=== PATIENT | female | born 1955 ===

== ENCOUNTER 2016-10-16 19:04 | Emergency (ER) | payer MEDICAID ==
[2016-10-16 19:04] VITALS: BMI 24.0
[2016-10-16 19:20] VITALS: BP 108/60; PULSE 74; RESP 18; TEMP 97.9; O2SAT 97
--- NOTE | 2016-10-16 19:53 | ED PDOC ---
Arrival/HPI <Candelario Waldrop - Last Filed: 10/16/16 22:03> - General Historian: Patient <Preston Sanders - Last Filed: 10/16/16 22:53> - General Chief Complaint: Headache Time Seen by Provider: 10/16/16 19:43 - History of Present Illness Narrative History of Present Illness (Text): 10/16/16 19:44 61 y/o female, pmh including htn/hyperlipidemia/dm/hypothyroidism/cva, nkda, c/ o lt frontal headache x 2 days with no fall or trauma. Frontal sinus pressure, no dizziness, no change in vision, feels pressure on the lt. eye with no change in vision, aggravated by bending forward, no dizziness, no slurred speech, no night sweat, no palpitation, no abdominal pain, no urinary symptoms, no other medical or psychological complaints. (Preston Sanders) Past Medical History - Provider Review Nursing Documentation Reviewed: Yes - Infectious Disease Hx of Infectious Diseases: None - Tetanus Immunization Tetanus Immunization: Unknown - Cardiac Hx Cardiac Disorders: Yes Hx Hypertension: Yes - Pulmonary Hx Respiratory Disorders: Yes Hx Asthma: Yes Hx Emphysema: Yes - Neurological Hx Neurological Disorder: No - HEENT Hx HEENT Disorder: No - Renal Hx Renal Disorder: No - Endocrine/Metabolic Hx Endocrine Disorders: Yes Hx Diabetes Mellitus Type 2: Yes Hx Hypothyroidism: Yes - Hematological/Oncological Hx Blood Disorders: No - Integumentary Hx Dermatological Disorder: No - Musculoskeletal/Rheumatological Hx Musculoskeletal Disorders: Yes Hx Arthritis: Yes Hx Osteoporosis: Yes - Gastrointestinal Hx Gastrointestinal Disorders: No - Genitourinary/Gynecological Hx Genitourinary Disorders: No - Psychiatric Hx Psychophysiologic Disorder: Yes Hx Anxiety: Yes Hx Bipolar Disorder: No Hx Depression: Yes Hx Emotional Abuse: No Hx Hallucinations: No Hx Panic Disorder: No Hx Post Traumatic Stress Disorder: No Hx Psychosis: No Hx Physical Abuse: No Hx Schizophrenia: No Hx Sexual Abuse: No Hx Substance Use: No - Surgical History Hx Orthopedic Surgery: Yes (BACK 10yrs ago) Other/Comment: breast bx - Anesthesia Hx Anesthesia: Yes Hx Anesthesia Reactions: No Hx Malignant Hyperthermia: No - Suicidal Assessment Feels Threatened In Home Enviroment: No <Preston Sanders - Last Filed: 10/16/16 22:53> Family/Social History - Physician Review Nursing Documentation Reviewed: Yes Family/Social History: Unknown Family HX Smoking Status: Never Smoked Hx Alcohol Use: No Hx Substance Use: No Hx Substance Use Treatment: No <Preston Sanders - Last Filed: 10/16/16 22:53> Allergies/Home Meds <Candelario Waldrop - Last Filed: 10/16/16 22:03> <Preston Sanders - Last Filed: 10/16/16 22:53> Allergies/Adverse Reactions: Allergies No Known Allergies Allergy (Verified 09/15/16 07:23) Home Medications: Home Meds Medication Instructions Recorded Confirmed Levothyroxine Sodium 0.075 mg PO DAILY 03/12/12 09/15/16 Lisinopril [Zestril] 10 mg PO DAILY 04/17/16 09/15/16 MetFORMIN [glucoPHAGE] 500 mg PO BID 04/17/16 09/15/16 Simvastatin [Zocor] 20 mg PO DAILY 04/17/16 09/15/16 Review of Systems - Review of Systems Constitutional: absent: Fatigue, Fevers Eyes: absent: Vision Changes ENT: absent: Hearing Changes, Tinnitus, TMJ Pain, Voice Changes, Sore Throat, Rhinorrhea, Epistaxis Respiratory: absent: SOB, Cough, Sputum, Wheezing Cardiovascular: absent: Chest Pain, Palpitations, Orthopnea Gastrointestinal: absent: Abdominal Pain, Nausea, Vomiting Skin: absent: Rash, Pruritis, Skin Lesions, Laceration, Abscess, Ulcer, Cellulitis Neurological: Headache. absent: Dizziness, Focal Weakness, Gait Changes, Speech Changes, Facial Droop, Disequilibrium, Seizure Psychiatric: absent: Anxiety, Depression, Suicidal Ideation <Preston Sanders - Last Filed: 10/16/16 22:53> Physical Exam Vital Signs Reviewed: Yes Temperature: Afebrile Blood Pressure: Normal Pulse: Regular Respiratory Rate: Normal Appearance: Positive for: Well-Appearing, Non-Toxic, Uncomfortable Pain Distress: Moderate Mental Status: Positive for: Alert and Oriented X 3 - Systems Exam Head: Present: Atraumatic, Normocephalic, Other (no sinus tenderness) Pupils: Present: PERRL Extroacular Muscles: Present: EOMI Conjunctiva: Present: Normal, Other (Eyes: lt. periorbital mild swelling with redness, lt. intraocular pressure 13 vs. rt. intraocular pressure 14, bilateral vision without correction 20/100, lt. vision without correctoin 20/100 vs. rt. vision without correction 20/100, FREOM without limitation, no hyhema, full range of extraocular movement on the bilateral eyes without limitation. ) Ears: Present: NORMAL TM, Normal Canal. No: Erythema Mouth: Present: Moist Mucous Membranes Pharnyx: No: ERYTHEMA, EXUDATE, TONSILS ENLARGED, Peritonsilar Swelling Nose (External): Present: Atraumatic. No: Abrasion, Contusion, Laceration Nose (Internal): Present: Normal Inspection, No Active Bleeding. No: Rhinorrhea , Septal Hematoma, Epistaxis Neck: Present: Normal Range of Motion, Trachea Midline. No: Meningeal Signs, MIDLINE TENDERNESS, Paraspinal Tenderness, Lymphadenopathy Respiratory/Chest: Present: Clear to Auscultation, Good Air Exchange. No: Respiratory Distress, Accessory Muscle Use, Wheezes, Decreased Breath Sounds, Rales, Retracting, Rhonchi, Tachypneic Cardiovascular: Present: Regular Rate and Rhythm, Normal S1, S2. No: Murmurs Abdomen: Present: Normal Bowel Sounds. No: Tenderness, Distention, Peritoneal Signs, Rebound, Guarding Back: Present: Normal Inspection. No: CVA Tenderness, Midline Tenderness, Paraspinal Tenderness, Pain with Leg Raise, Decubitus Ulcer Upper Extremity: Present: Normal Inspection. No: Cyanosis, Edema Lower Extremity: Present: Normal Inspection. No: Edema Neurological: Present: GCS=15, CN II-XII Intact, Speech Normal, Motor Func Grossly Intact, Gait Normal, Memory Normal, Other (normal finger to nose, normal heel to lauern test. ) Skin: Present: Warm, Dry, Normal Color. No: Rashes Lymphatic: No: Cervical Adenopathy Psychiatric: Present: Alert, Oriented x 3, Normal Insight, Normal Concentration <Preston Sanders - Last Filed: 10/16/16 22:53> Vital Signs Temp Pulse Resp BP Pulse Ox 10/16/16 19:14 97.9 F 74 18 108/60 97 Medical Decision Making <Candelario Waldrop - Last Filed: 10/16/16 22:03> - Lab Interpretations I have reviewed the lab results: Yes Interpretation: No clinic. lab abnormalty - RAD Interpretation Quality Improvement Manager: Radiologist <Preston Sanders - Last Filed: 10/16/16 22:53> ED Course and Treatment: 10/16/16 19:59 -Labs -CT head/orbit -IV reglan and benadryl -Tonometer -Observe and reassess 10/16/16 22:48 -CT head and orbital show no acute findings. -Labs are non-significant -Pain decreased significantly, toradol ordered as the patient request more pain meds. -PT. has her own opthalmologist DR. Verduzco which she will see her own opthalmologist within 2 days. -Discharge home with augmentin, zyrtec, motrin, stay hydrated, avoid rubbing or touching the face, follow up with your own pmd and your own opthalmologist within 2 days, return to the ER for any new or worsening signs or symptoms. (Preston Sanders) - Lab Interpretations Lab Results: 10/16/16 20:04 10/16/16 20:04 Lab Results 10/16/16 20:04: WBC 7.3, RBC 4.02, Hgb 12.0, Hct 36.0, MCV 89.6, MCH 29.9, MCHC 33.3, RDW 13.3, Plt Count 218, MPV 10.3, Gran % 51.1, Lymph % (Auto) 30.8, Garland % (Auto) 5.1, Eos % (Auto) 12.7 H, Baso % (Auto) 0.3, Gran # 3.72, Lymph # 2.2, Garland # 0.4, Eos # 0.9 H, Baso # 0.02, Sodium 141, Potassium 4.2, Chloride 103, Carbon Dioxide 27, Anion Gap 15, BUN 27 H, Creatinine 0.9, Est GFR ( Amer ) > 60, Est GFR (Non-Af Amer) > 60, Random Glucose 164 H, Calcium 9.8, Total Bilirubin 0.5, AST 24, ALT 16, Alkaline Phosphatase 107, Total Protein 7.3, Albumin 4.2, Globulin 3.1, Albumin/Globulin Ratio 1.4 - RAD Interpretation Radiology Orders: 10/16/16 19:53 HEAD W/O CONTRAST [CT] Stat ORBITS/ FACIALS W/O CONTRAST [CT] Stat CT HEAD: FINDINGS: Brain: Ventricles are normal in size and configuration. There is no midline shift. There is mild prominence of sulci and gyri, unchanged. There are no intra-axial or extra- axial mass lesions or areas of hemorrhage. There are no abnormal fluid collections. Fournier-white differentiation is maintained. Ventricles: See above. Bones: Cranial vault is intact. Soft tissues: unremarkable Sinuses: There is no acute sinusitis. Ears and mastoids: Middle ears and mastoids are unremarkable Orbits: Orbital contents are unremarkable. IMPRESSION: No acute intracranial abnormality Thank you for allowing us to participate in the care of your patient. Dictated and Authenticated by: Ekta Johansen MD 10/16/2016 9:51 PM Eastern Time ( & Cr) CT Orbital/facial: FINDINGS: Bones/joints: There are no facial bone fractures. Soft tissues: There are no facial masses. Orbits: Orbital contents are unremarkable. Sinuses: There is no acute sinusitis. Middle ears and mastoids Middle ears and mastoids are incompletely imaged. Dental: Streak artifact from dental fillings degrades image quality. Brain: No focal abnormalities are seen in visualized portion of the brain. IMPRESSION: No sinusitis Thank you for allowing us to participate in the care of your patient. Dictated and Authenticated by: Ekta Johansen MD 10/16/2016 10:11 PM Eastern Time ( & Cr) (Preston Sanders) - Medication Orders Current Medication Orders: Sodium Chloride (Sodium Chloride 0.9%) 1,000 mls @ 200 mls/hr IV .Q5H BALDEMAR Last Admin: 10/16/16 20:08 Dose: 200 MLS/HR eMAR Start Stop Document 10/16/16 20:08 SE (Rec: 10/16/16 20:08 SE [id number]) Intravenous Solution Start Date 10/16/16 Start Time 20:08 Discontinued Medications Diphenhydramine HCl (Benadryl) 25 mg IVP STAT STA Stop: 10/16/16 19:57 Last Admin: 10/16/16 20:07 Dose: 25 MG IVP Administration Document 10/16/16 20:07 SE (Rec: 10/16/16 20:08 [id number]) Charges for Administration # of IVP Administrations 1 Metoclopramide HCl (Reglan) 10 mg IVP STAT STA Stop: 10/16/16 19:57 Last Admin: 10/16/16 20:08 Dose: 10 MG IVP Administration Document 10/16/16 20:08 SE (Rec: 10/16/16 20:08 SE [id number]) Charges for Administration # of IVP Administrations 1 - PA / REFRIGERATION ENGINEER / Resident Statement SHAHIDA has reviewed & agrees with the documentation as recorded. <Candelario Waldrop - Last Filed: 10/16/16 22:03> - PA / REFRIGERATION ENGINEER / Resident Statement SHAHIDA has reviewed & agrees with the documentation as recorded. <Preston Sanders - Last Filed: 10/16/16 22:53> Disposition/Present on Arrival <Candelario Waldrop - Last Filed: 10/16/16 22:03> - Present on Arrival Any Indicators Present on Arrival: No History of DVT/PE: No History of Uncontrolled Diabetes: No Urinary Catheter: No History of Decub. Ulcer: No History Surgical Site Infection Following: None - Disposition Have Diagnosis and Disposition been Completed?: Yes Disposition Time: 22:36 Patient Plan: Discharge <Preston Sanders - Last Filed: 10/16/16 22:53> - Disposition Diagnosis: Dehydration, Sinusitis, Periorbital cellulitis of left eye Disposition: HOME/ ROUTINE Patient Problems: Current Active Problems Problem Status Diagnosed Dehydration Acute Sinusitis Acute Condition: IMPROVED Discharge Instructions (ExitCare): Cellulitis (ED) Additional Instructions: Discharge home with augmentin, zyrtec, motrin, stay hydrated, avoid rubbing or touching the face, follow up with your own pmd and your own opthalmologist within 2 days, return to the ER for any new or worsening signs or symptoms. Prescriptions: Amoxicillin/Clavulanate [Augmentin 875 MG-125 MG] 1 tab PO BID #20 tab Ibuprofen [Motrin Tab] 400 mg PO QID PRN #25 tab PRN Reason: other Cetirizine HCl [Zyrtec Allergy] 10 mg PO DAILY #10 sgl Referrals: Taye Mckinney MD [Primary Care Provider] - Follow up with primary Han Verduzco MD [Staff Provider] - Follow up with primary Forms: WORK NOTE
[2016-10-16] MEDS ORDERED: DiphenhydrAMINE 50 mg/ml Inj IVP STA (19:56)
[2016-10-16] MEDS ORDERED: Sodium Chloride 0.9% 1,000 ML IV SCH (20:00)
[2016-10-16 20:16] LABS: ADD MANUAL DIFF? NO
[2016-10-16 20:35] LABS: BASO # 0.02 K/mm3 (0.0-2.0); BASO % 0.3 % (0.0-3.0); EOS # 0.9 (0.0-0.7); EOS % 12.7 % (1.5-5.0); GRAN # 3.72 (1.4-6.5); GRAN % 51.1 % (50.0-68.0); LYMPH # 2.2 (1.2-3.4); LYMPH % 30.8 % (22.0-35.0); MEAN CELL VOLUME 89.6 fL (80.0-105.0); MEAN CORPUSCULAR HEMOGLOBIN 29.9 pg (25.0-35.0); MEAN CORPUSCULAR HGB CONC 33.3 g/dl (31.0-37.0); MEAN PLATELET VOLUME 10.3 fl (7.0-11.0); MONO # 0.4 (0.1-0.6); MONO % 5.1 % (1.0-6.0); PLATELET COUNT 218 10^3/uL (120.0-450.0); RED CELL DISTRIBUTION WIDTH 13.3 % (11.5-14.5); WHITE BLOOD COUNT 7.3 10^3/ul (4.5-11.0)
[2016-10-16 20:47] LABS: ALB/GLOB RATIO 1.4 (1.1-1.8); ALKALINE PHOSPHATASE 107 U/L (38-133); ALT/SGPT 16 U/L (7-56); AST/SGOT 24 U/L (15-39); BILIRUBIN,TOTAL 0.5 mg/dL (0.2-1.3); BLOOD UREA NITROGEN 27 mg/dL (7-21); CALCIUM 9.8 mg/dL (8.4-10.5); CARBON DIOXIDE 27 mmol/L (21-33); CHLORIDE 103 mmol/L (98-107); GFR AFRICAN-AMERICAN > 60; GLUCOSE,RANDOM 164 mg/dL (70-110); POTASSIUM 4.2 mmol/L (3.6-5.0); SODIUM 141 mmol/L (132-148); TOTAL PROTEIN 7.3 g/dL (5.8-8.3)
--- NOTE | 2016-10-16 21:52 | CT ---
EXAM: CT Head Without Intravenous Contrast. CLINICAL HISTORY: 61 years old, female; Pain; Headache; Other: Frontal; Additional info: Frontal headache x 2 days TECHNIQUE: Axial computed tomography images of the head/brain without intravenous contrast. This CT exam was performed using one or more of the following dose reduction techniques: automated exposure control, adjustment of the mA and/or kV according to patient size, and/or use of iterative reconstruction technique. EXAM DATE/TIME: 10/16/2016 7:53 PM COMPARISON: CT - HEAD W/O (CODE STROKE) 08/01/2016 2:43:53 PM FINDINGS: Brain: Ventricles are normal in size and configuration. There is no midline shift. There is mild prominence of sulci and gyri, unchanged. There are no intra-axial or extra-axial mass lesions or areas of hemorrhage. There are no abnormal fluid collections. Fournier-white differentiation is maintained. Ventricles: See above. Bones: Cranial vault is intact. Soft tissues: unremarkable Sinuses: There is no acute sinusitis. Ears and mastoids: Middle ears and mastoids are unremarkable Orbits: Orbital contents are unremarkable. IMPRESSION: No acute intracranial abnormality
--- NOTE | 2016-10-16 22:11 | CT ---
EXAM: CT Maxillofacial Without Intravenous Contrast. CLINICAL HISTORY: 61 years old, female; Pain; Headache; Other: Frontal; Additional info: Lt. Frontal headache TECHNIQUE: Axial computed tomography images of the face without intravenous contrast. This CT exam was performed using one or more of the following dose reduction techniques: automated exposure control, adjustment of the mA and/or kV according to patient size, and/or use of iterative reconstruction technique. Coronal and sagittal reformatted images were created and reviewed. EXAM DATE/TIME: 10/16/2016 7:53 PM COMPARISON: CT - HEAD W/O (CODE STROKE) 08/01/2016 2:43:53 PM FINDINGS: Bones/joints: There are no facial bone fractures. Soft tissues: There are no facial masses. Orbits: Orbital contents are unremarkable. Sinuses: There is no acute sinusitis. Middle ears and mastoids Middle ears and mastoids are incompletely imaged. Dental: Streak artifact from dental fillings degrades image quality. Brain: No focal abnormalities are seen in visualized portion of the brain. IMPRESSION: No sinusitis
[2016-10-16] MEDS ORDERED: Piperacillin/Tazobact 3.375 gm 100 ML IVPB STA (22:46)
== END 2016-10-16 22:55 | disposition home or self-care (01) ==
LOC: ED 19:04
DX: L03.213 Periorbital cellulitis (principal); J32.9 Chronic sinusitis, unspecified; E86.0 Dehydration; I10 Essential (primary) hypertension; E78.5 Hyperlipidemia, unspecified; E11.9 Type 2 diabetes mellitus without complications; E03.9 Hypothyroidism, unspecified
CPT/HCPCS: 70450; 70480; 80053; 85025; 96365; 96375; 99285; J1200; J1885; J2543; J2765; J7040

== ENCOUNTER 2016-11-04 13:59 | Emergency (ER) | payer MEDICAID ==
[2016-11-04 14:40] VITALS: RESP 18; TEMP 98.4; O2SAT 98; BMI 23.0
[2016-11-04 15:27] VITALS: BP 108/67; PULSE 68
[2016-11-04] MEDS ORDERED: Amoxicillin-Clav 875-125 mg Tab PO STA (15:27)
[2016-11-04] MEDS ORDERED: TDAP Vaccine 0.5 mL Syr IM ONE (15:27)
--- NOTE | 2016-11-04 16:01 | ED PDOC ---
Arrival/HPI - General Chief Complaint: Bite Time Seen by Provider: 11/04/16 15:27 Historian: Patient - History of Present Illness Narrative History of Present Illness (Text): 11/04/16 16:13 61-year-old diabetic female presents today with a dog bite to the left fourth finger. Patient states she was petting a dog in her building and sustained a bite. Patient states that the dentist/owner of the dog did not tell her that the dog is known to bite strangers. So when she went to pet the dog the dog bit her. She denies numbness weakness or tingling in the extremities. Complaining of pain only to the laceration site. Patient states she is worried because she is a diabetic. She is unsure of her last tetanus shot. Patient states she knows the dog and the dentist/owner of the dog but she is not sure of the dog's immunization status. Past Medical History - Provider Review Nursing Documentation Reviewed: Yes - Travel History Have you recently traveled outside [place] w/in the past 3 mons?: No - Infectious Disease Hx of Infectious Diseases: None - Tetanus Immunization Tetanus Immunization: Unknown - Reproductive Menopause: Yes - Cardiac Hx Cardiac Disorders: Yes Hx Hypertension: Yes - Pulmonary Hx Respiratory Disorders: Yes Hx Asthma: Yes Hx Emphysema: Yes - Neurological Hx Neurological Disorder: No - HEENT Hx HEENT Disorder: No - Renal Hx Renal Disorder: No - Endocrine/Metabolic Hx Endocrine Disorders: Yes Hx Diabetes Mellitus Type 2: Yes Hx Hypothyroidism: Yes - Hematological/Oncological Hx Blood Disorders: No - Integumentary Hx Dermatological Disorder: No - Musculoskeletal/Rheumatological Hx Musculoskeletal Disorders: Yes Hx Arthritis: Yes Hx Osteoporosis: Yes - Gastrointestinal Hx Gastrointestinal Disorders: No - Genitourinary/Gynecological Hx Genitourinary Disorders: No - Psychiatric Hx Psychophysiologic Disorder: Yes Hx Anxiety: Yes Hx Bipolar Disorder: No Hx Depression: Yes Hx Emotional Abuse: No Hx Hallucinations: No Hx Panic Disorder: No Hx Post Traumatic Stress Disorder: No Hx Psychosis: No Hx Physical Abuse: No Hx Schizophrenia: No Hx Sexual Abuse: No Hx Substance Use: No - Surgical History Hx Orthopedic Surgery: Yes (BACK 10yrs ago) Other/Comment: breast bx - Anesthesia Hx Anesthesia: Yes Hx Anesthesia Reactions: No Hx Malignant Hyperthermia: No - Suicidal Assessment Feels Threatened In Home Enviroment: No Family/Social History - Physician Review Nursing Documentation Reviewed: Yes Family/Social History: Unknown Family HX Smoking Status: Never Smoked Hx Alcohol Use: No Hx Substance Use: No Hx Substance Use Treatment: No Allergies/Home Meds Allergies/Adverse Reactions: Allergies No Known Allergies Allergy (Verified 11/04/16 14:40) Home Medications: Home Meds Medication Instructions Recorded Confirmed Levothyroxine Sodium 0.075 mg PO DAILY 03/12/12 09/15/16 Lisinopril [Zestril] 10 mg PO DAILY 04/17/16 09/15/16 MetFORMIN [glucoPHAGE] 500 mg PO BID 04/17/16 09/15/16 Simvastatin [Zocor] 20 mg PO DAILY 04/17/16 09/15/16 Review of Systems - Review of Systems Constitutional: absent: Fatigue, Fevers Respiratory: absent: SOB, Cough Cardiovascular: absent: Chest Pain, Palpitations Gastrointestinal: absent: Abdominal Pain Musculoskeletal: Arthralgias Skin: Laceration Neurological: absent: Headache, Dizziness Physical Exam Vital Signs Reviewed: Yes Vital Signs Temp Pulse Resp BP Pulse Ox 11/04/16 15:27 68 18 108/67 98 11/04/16 14:36 98.4 F 70 18 110/69 98 Temperature: Afebrile Blood Pressure: Normal Pulse: Regular Respiratory Rate: Normal Appearance: Positive for: Well-Appearing, Non-Toxic, Comfortable Pain Distress: None Mental Status: Positive for: Alert and Oriented X 3 - Systems Exam Head: Present: Atraumatic Respiratory/Chest: Present: Clear to Auscultation Cardiovascular: Present: Regular Rate and Rhythm Upper Extremity: Present: Normal ROM, NORMAL PULSES, Tenderness (LEFT HAND; THERE IS + ECCHYMOSIS AND SLIGHT EDEMA NOTED TO THE LEFT 4TH FINGER; + 0.5CM NON GAPING LACERATION TO PROXIMAL PHALANX OF LEFT 4TH FINGER. NO ACTIVE BLEEDING ), Swelling, Neurovascularly Intact, Capillary Refill < 2s. No: Erythema Neurological: Present: GCS=15, Speech Normal Skin: Present: Warm, Dry, Normal Color Psychiatric: Present: Alert, Oriented x 3 Medical Decision Making ED Course and Treatment: 11/04/16 16:57 Patient is nontoxic well-appearing in no distress. Vital signs are stable. Dog is known to patient; she will try to find out the immunization status of the dog. Tetanus updated Wound irrigated well with copious amounts of high-pressure irrigation using normal saline, bacitracin and dressing applied Augmentin 875 mg p.o. Patient was advised to keep the wound clean and dry, apply bacitracin twice daily, take antibiotics as prescribed and return immediately if symptoms worsen persist or if new symptoms develop. pt was advised that she has 3 days to verify the dog's rabies immunization status. If you are unable to verify the dog's rabies immunization status within the next 3 days; you must return to the emergency room to start the rabies immunoglobulin and vaccine series. i discussed the plan in depth with the patient using the laborer [employer] asphalt screed operator #[id number]; and i have discussed the discharge plan with the patients daughter. they are going to attempt to find out the immunization status of the dog and if they are unable to verify they will return for start of rabies vaccine/immunoglobulin. Patient verbalizes understanding of discharge instructions and need for immediate followup. Impression: Dog bite, laceration, finger Motrin one tablet every 6 hours as needed for pain Augmentin: Twice daily x10 days Keep the wound clean and dry, apply bacitracin twice daily Return immediately if symptoms worsen persist or if new symptoms develop: High fevers, increasing pain, increasing redness, swelling or if any other concerning symptoms develop. you have 3 days to verify the dog's rabies immunization status. If you are unable to verify the dog's rabies immunization status within the next 3 days; you must return to the emergency room to start the rabies immunoglobulin and vaccine series. 11/04/16 19:14 patients daughter returned to the ER with documentation showing that the dog that bit the patient is up to date with rabies vaccine. - Medication Orders Current Medication Orders: Discontinued Medications Amoxicillin/Clavulanate Potassium (Augmentin 875 Mg-125 Mg Tab) 1 tab PO STAT STA PRN Reason: Protocol Stop: 11/04/16 15:28 Last Admin: 11/04/16 16:00 Dose: 1 TAB Ibuprofen (Motrin Tab) 600 mg PO STAT STA Stop: 11/04/16 15:28 Last Admin: 11/04/16 16:00 Dose: 600 MG MAR Pain/Vitals Document 11/04/16 16:00 (Rec: 11/04/16 16:00 [id number]) Pain Reassessment Is This A Pain ReAssessment? Yes Sleep Is patient sleeping during reassessment? No Presence of Pain Presence of Pain Yes Tetanus/Reduced Diphtheria/Acell Pertussis (Boostrix Vaccine Inj) 0.5 ml IM .ONCE ONE Stop: 11/04/16 15:28 Last Admin: 11/04/16 16:00 Dose: 0.5 ML MAR Immunization Data Document 11/04/16 16:00 (Rec: 11/04/16 16:02 [facility] [id number]) Immunization Data Vaccine Lot Number [id number] Vaccine Expiration Date 11/04/16 Disposition/Present on Arrival - Present on Arrival Any Indicators Present on Arrival: No History of DVT/PE: No History of Uncontrolled Diabetes: No Urinary Catheter: No History of Decub. Ulcer: No History Surgical Site Infection Following: None - Disposition Have Diagnosis and Disposition been Completed?: Yes Diagnosis: Dog bite, Laceration of finger Disposition: HOME/ ROUTINE Disposition Time: 15:40 Patient Plan: Discharge Condition: GOOD Discharge Instructions (ExitCare): Animal Bite (ED), Laceration Without Closure (ED) Additional Instructions: Motrin one tablet every 6 hours as needed for pain Augmentin: Twice daily x10 days Keep the wound clean and dry, apply bacitracin twice daily Return immediately if symptoms worsen persist or if new symptoms develop: High fevers, increasing pain, increasing redness, swelling or if any other concerning symptoms develop. you have 3 days to verify the dog's rabies immunization status. If you are unable to verify the dog's rabies immunization status within the next 3 days; you must return to the emergency room to start the rabies immunoglobulin and vaccine series. Prescriptions: Amoxicillin/Clavulanate [Augmentin 875 MG-125 MG] 1 tab PO BID #20 tab Bacitracin 1 appl TP BID #1 tube Ibuprofen [Motrin] 600 mg PO Q6H PRN #20 tab PRN Reason: pain/fever reduction Referrals: Taye Mckinney MD [Primary Care Provider] - Follow up with primary
== END 2016-11-04 16:30 | disposition home or self-care (01) ==
LOC: ED 13:59
DX: S61.215A Laceration without foreign body of left ring finger without damage to nail, initial encounter (principal); W54.0XXA Bitten by dog, initial encounter; Y93.K9 Activity, other involving animal care; Y92.89 Other specified places as the place of occurrence of the external cause; I10 Essential (primary) hypertension; E11.9 Type 2 diabetes mellitus without complications; Z23 Encounter for immunization

== ENCOUNTER 2016-11-09 11:15 | Emergency (ER) | payer MEDICAID ==
[2016-11-09 11:16] VITALS: BMI 23.0
[2016-11-09 11:35] VITALS: TEMP 97.8
[2016-11-09] MEDS ORDERED: Sodium Chloride 0.9% 1,000 ML IV STA (11:59)
--- NOTE | 2016-11-09 12:06 | ED PDOC ---
Arrival/HPI - General Chief Complaint: Female Genitourinary Time Seen by Provider: 11/09/16 11:49 Historian: Patient - History of Present Illness Narrative History of Present Illness (Text): 11/09/16 11:52 Minerva Lemus is a 61 year old female who presents to the Emergency department complaining of urinary frequency, urgency, hematuria, accompanied with right sided flank pain intermittently for 5 days. Patient also complains of epigastric abdominal pain. Patient is able to urinate and eat, patient's last bowel movement was yesterday with no blood. Patient otherwise denies any fever, chills, chest pain, shortness of breath, nausea, vomiting, diarrhea, urinary symptoms, back pain, neck pain, headache, dizziness, or any other complaints. PMD: Taye Mckinney MD Time/Duration: < week (5 days) Symptom Onset: Gradual Symptom Course: Unchanged Activities at Onset: Light Context: Home Past Medical History - Provider Review Nursing Documentation Reviewed: Yes - Infectious Disease Hx of Infectious Diseases: None - Tetanus Immunization Tetanus Immunization: Unknown - Reproductive Menopause: Yes - Cardiac Hx Cardiac Disorders: Yes Hx Hypertension: Yes - Pulmonary Hx Respiratory Disorders: Yes Hx Asthma: Yes Hx Emphysema: Yes - Neurological Hx Neurological Disorder: No - HEENT Hx HEENT Disorder: Yes Other/Comment: left eye scraping 10/2016 - Renal Hx Renal Disorder: No - Endocrine/Metabolic Hx Endocrine Disorders: Yes Hx Diabetes Mellitus Type 2: Yes Hx Hypothyroidism: Yes - Hematological/Oncological Hx Blood Disorders: No - Integumentary Hx Dermatological Disorder: No - Musculoskeletal/Rheumatological Hx Musculoskeletal Disorders: Yes Hx Arthritis: Yes Hx Osteoporosis: Yes - Gastrointestinal Hx Gastrointestinal Disorders: No - Genitourinary/Gynecological Hx Genitourinary Disorders: No - Psychiatric Hx Psychophysiologic Disorder: Yes Hx Anxiety: Yes Hx Bipolar Disorder: No Hx Depression: Yes Hx Emotional Abuse: No Hx Hallucinations: No Hx Panic Disorder: No Hx Post Traumatic Stress Disorder: No Hx Psychosis: No Hx Physical Abuse: No Hx Schizophrenia: No Hx Sexual Abuse: No Hx Substance Use: No - Surgical History Hx Orthopedic Surgery: Yes (BACK 10yrs ago) Other/Comment: breast bx - Anesthesia Hx Anesthesia: Yes Hx Anesthesia Reactions: No Hx Malignant Hyperthermia: No - Suicidal Assessment Feels Threatened In Home Enviroment: No Family/Social History - Physician Review Nursing Documentation Reviewed: Yes Family/Social History: No Known Family HX Smoking Status: Never Smoked Hx Alcohol Use: No Hx Substance Use: No Hx Substance Use Treatment: No Allergies/Home Meds Allergies/Adverse Reactions: Allergies No Known Allergies Allergy (Verified 11/09/16 11:36) Home Medications: Home Meds Medication Instructions Recorded Confirmed Levothyroxine Sodium 0.075 mg PO DAILY 03/12/12 11/09/16 Lisinopril [Zestril] 10 mg PO DAILY 04/17/16 11/09/16 MetFORMIN [glucoPHAGE] 500 mg PO BID 04/17/16 11/09/16 Simvastatin [Zocor] 20 mg PO DAILY 04/17/16 11/09/16 Neomycin/Polymyxin/Bacitr/HC 3.5 gm OD QID 11/09/16 11/09/16 [Cortisporin Opht Oint] Review of Systems - Physician Review All systems were reviewed & negative as marked: Yes - Review of Systems Constitutional: Normal. absent: Fevers Eyes: Normal ENT: Normal Respiratory: Normal. absent: SOB, Cough Cardiovascular: Normal. absent: Chest Pain Gastrointestinal: Abdominal Pain (Epigastric Abdominal Pain) Genitourinary Female: Frequency, Hematuria, Other (Urgency) Musculoskeletal: Other (Flank Pain). absent: Back Pain, Neck Pain Skin: Normal Neurological: Normal. absent: Headache, Dizziness Endocrine: Normal Hemo/Lymphatic: Normal Psychiatric: Normal Physical Exam Vital Signs Reviewed: Yes Vital Signs Temp Pulse Resp BP Pulse Ox 11/09/16 16:23 70 16 120/80 98 11/09/16 13:16 72 16 122/82 98 11/09/16 11:30 70 19 120/79 97 11/09/16 11:28 97.8 F 70 19 120/79 97 Temperature: Afebrile Blood Pressure: Normal Pulse: Regular Respiratory Rate: Normal Appearance: Positive for: Well-Appearing, Non-Toxic, Comfortable Pain Distress: None Mental Status: Positive for: Alert and Oriented X 3 - Systems Exam Head: Present: Atraumatic, Normocephalic Pupils: Present: PERRL Extroacular Muscles: Present: EOMI Conjunctiva: Present: Normal Mouth: Present: Moist Mucous Membranes Neck: Present: Normal Range of Motion Respiratory/Chest: Present: Clear to Auscultation, Good Air Exchange. No: Respiratory Distress, Accessory Muscle Use Cardiovascular: Present: Regular Rate and Rhythm, Normal S1, S2. No: Murmurs Abdomen: Present: Tenderness (Tender to the Periumbilical and Epigastric Region) , Normal Bowel Sounds, Hernias (Palpable Hernia, reducible). No: Distention, Peritoneal Signs Back: Present: Normal Inspection. No: CVA Tenderness Neurological: Present: GCS=15, CN II-XII Intact, Speech Normal Skin: Present: Warm, Dry, Normal Color. No: Rashes Psychiatric: Present: Alert, Oriented x 3, Normal Insight, Normal Concentration Medical Decision Making ED Course and Treatment: 11/09/16 12:08 Impression: 61 year old female with urinary frequency, urgency, and right flank pain for five days. Differential Diagnosis include but are not limited to: UTI vs. Pyelonephritis vs. Renal Colic vs. Gastritis vs. Hernial Pain Plan: -- Abd & Pel CT -- IV Fluids -- Toradol -- Labs, Urinalysis -- Reassess and disposition Prior Visits: Notes and results from previous visits were reviewed. Patient was last seen in the Emergency department on 11/04/16 for a dog bite. Progress Notes: 11/09/16 - Case was discussed with Dr. Wiley who states that he will see her as an outpatient and recommends pain control and flomax. He also recommends a strainer to catch the stone as it passes while urinating. I explained this to patient and she will make sure to use the strainer. Primary Language Tajik which I am fluent in and used for patient communication. Spanish also with daughter. - Lab Interpretations Lab Results: 11/09/16 12:46 11/09/16 12:46 Lab Results 11/09/16 13:31: Urine Color Straw, Urine Appearance Sl cloudy, Urine pH 6.0, Ur Specific [place] English <= 1.005, Urine Protein Negative, Urine Glucose (UA) Negative, Urine Ketones Negative, Urine Blood Large H, Urine Nitrate Negative, Urine Bilirubin Negative, Urine Urobilinogen 0.2, Ur Leukocyte Esterase Moderate H, Urine RBC 2 - 5, Urine WBC 5 - 10, Ur Epithelial Cells 0 - 2, Urine Bacteria Trace 11/09/16 12:46: WBC 10.0 D, RBC 4.19, Hgb 12.6, Hct 36.7, MCV 87.6, MCH 30.1, MCHC 34.3, RDW 12.9, Plt Count 209, MPV 10.0, Gran % 66.1, Lymph % (Auto) 23.0, [place] % (Auto) 5.7, Eos % (Auto) 5.0, Baso % (Auto) 0.2, Gran # 6.58 H, Lymph # 2.3, [place] # 0.6, Eos # 0.5, Baso # 0.02, Sodium 141, Potassium 4.4, Chloride 103 , Carbon Dioxide 30, Anion Gap 12, BUN 21, Creatinine 0.8, Est GFR ( Amer ) > 60, Est GFR (Non-Af Amer) > 60, Random Glucose 99, Calcium 10.4, Total Bilirubin 0.7, AST 28, ALT 30, Alkaline Phosphatase 103, Total Protein 8.0, Albumin 4.4, Globulin 3.5, Albumin/Globulin Ratio 1.3, Lipase 117 11/09/16 12:42: POC Glucose (mg/dL) 116 H I have reviewed the lab results: Yes - RAD Interpretation Radiology Orders: 11/09/16 12:34 ABD & PELVIS W/O PO OR IV CONT [CT] Stat Pathology Laboratory Aides Teacher: Radiologist - Medication Orders Current Medication Orders: Discontinued Medications Sodium Chloride (Sodium Chloride 0.9%) 1,000 mls @ 1,000 mls/hr IV .Q1H STA Stop: 11/09/16 12:58 Last Admin: 11/09/16 12:45 Dose: 1,000 MLS/HR eMAR Start Stop Document 11/09/16 12:45 HI (Rec: 11/09/16 12:45 HI [id number]) Intravenous Solution Start Date 11/09/16 Start Time 12:45 Iohexol (Omnipaque 240 (50 Ml)) Confirm Administered Dose 50 ml .ROUTE .STK-MED ONE Stop: 11/09/16 12:12 Ketorolac Tromethamine (Toradol) 30 mg IVP STAT STA Stop: 11/09/16 12:00 Last Admin: 11/09/16 12:45 Dose: Not Given Non-Admin Reason: Patient Refused IVP Administration Document 11/09/16 12:45 HI (Rec: 11/09/16 12:45 [place] [id number]) Charges for Administration # of IVP Administrations 1 - Scribe Statement The provider has reviewed the documentation as recorded by the Scribe Sephorah Ruy Provider Attestation: All medical record entries made by the Jan were at my direction and personally dictated by me. I have reviewed the chart and agree that the record accurately reflects my personal performance of the history, physical exam, medical decision making, and the department course for this patient. I have also personally directed, reviewed, and agree with the discharge instructions and disposition. Disposition/Present on Arrival - Present on Arrival Any Indicators Present on Arrival: No History of DVT/PE: No History of Uncontrolled Diabetes: No Urinary Catheter: No History of Decub. Ulcer: No History Surgical Site Infection Following: None - Disposition Have Diagnosis and Disposition been Completed?: Yes Diagnosis: Renal colic on right side Disposition: HOME/ ROUTINE Disposition Time: 14:55 Patient Plan: Discharge Condition: IMPROVED Discharge Instructions (ExitCare): Renal Colic (ED) Additional Instructions: Ms Lemus, thank you for letting us take care of you today. Your provider was Dr. Hassan. You were treated for Renal Colic, Ventral Hernia. The emergency medical care you received today was directed at your acute symptoms. If you were prescribed any medication, please fill it and take as directed. It may take several days for your symptoms to resolve. Return to the Emergency Department if your symptoms worsen, do not improve, or if you have any other problems. Make sure to use the strainer to catch the kidney stone when you urinate. Call Dr. Wiley at his cell [phone] for appt. Please contact your doctor or call one of the physicians/clinics you have been referred to that are listed on the Patient Visit Information form that is included in your discharge packet. Bring any paperwork you were given at discharge with you along with any medications you are taking to your follow up visit. Our treatment cannot replace ongoing medical care by a primary care provider (PCP) outside of the emergency department. Thank you for allowing the [facility] team to be part of your care today. If you had an X-Ray or CT scan: A Radiologist will review the ED reading if any change in treatment is needed we will contact you. If you had a blood, urine, or wound culture: It will take several days for the results, if any change in treatment is needed we will contact you. If you had an STI test: It will take 48 hours for the results. Please call after 1 week if you have not heard back. Prescriptions: Tamsulosin [Flomax] 0.4 mg PO DAILY #14 cap Ibuprofen [Motrin] 600 mg PO Q6 PRN #30 tab PRN Reason: Pain, Moderate (4-7) Referrals: Taye Mckinney MD [Primary Care Provider] - Follow up with primary Ivan Wiley MD [Staff Provider] - Follow up with primary
[2016-11-09] MEDS ORDERED: Iohexol 240 (50 ml) ONE (12:11)
[2016-11-09 12:47] LABS: ADD MANUAL DIFF? NO
[2016-11-09 12:54] LABS: BASO # 0.02 K/mm3 (0.0-2.0); BASO % 0.2 % (0.0-3.0); EOS # 0.5 (0.0-0.7); GRAN # 6.58 (1.4-6.5); GRAN % 66.1 % (50.0-68.0); HEMATOCRIT 36.7 % (36.0-48.0); LYMPH # 2.3 (1.2-3.4); MEAN CELL VOLUME 87.6 fL (80.0-105.0); MEAN CORPUSCULAR HEMOGLOBIN 30.1 pg (25.0-35.0); MEAN CORPUSCULAR HGB CONC 34.3 g/dl (31.0-37.0); MONO # 0.6 (0.1-0.6); MONO % 5.7 % (1.0-6.0); PLATELET COUNT 209 10^3/uL (120.0-450.0); RED CELL DISTRIBUTION WIDTH 12.9 % (11.5-14.5)
[2016-11-09 13:03] LABS: ALB/GLOB RATIO 1.3 (1.1-1.8); ALKALINE PHOSPHATASE 103 U/L (38-133); ALT/SGPT 30 U/L (7-56); AST/SGOT 28 U/L (15-39); BILIRUBIN,TOTAL 0.7 mg/dL (0.2-1.3); BLOOD UREA NITROGEN 21 mg/dL (7-21); CALCIUM 10.4 mg/dL (8.4-10.5); CARBON DIOXIDE 30 mmol/L (21-33); CHLORIDE 103 mmol/L (98-107); GFR AFRICAN-AMERICAN > 60; GLUCOSE,RANDOM 99 mg/dL (70-110); LIPASE 117 U/L (23-300); POTASSIUM 4.4 mmol/L (3.6-5.0); SODIUM 141 mmol/L (132-148)
[2016-11-09 13:54] LABS: URINE BILIRUBIN NEGATIVE (NEGATIVE); URINE BLOOD LARGE (NEGATIVE); URINE GLUCOSE (UA) NEGATIVE (NEGATIVE); URINE KETONE NEGATIVE (NEGATIVE); URINE LEUKOCYTE ESTERASE MODERATE Leu/uL (NEGATIVE); URINE PROTEIN NEGATIVE mg/dL (<30 mg/dL); URINE UROBILINOGEN 0.2 E.U./dL (<1 E.U./dL)
[2016-11-09 13:55] LABS: URINE APPEARANCE SL CLOUDY (CLEAR); URINE COLOR STRAW (YELLOW)
[2016-11-09 14:04] LABS: URINE EPITHELIAL CELLS 0 - 2 /hpf (0-5)
[2016-11-09 14:05] LABS: URINE BACTERIA TRACE (NEG)
--- NOTE | 2016-11-09 14:49 | CT ---
PROCEDURE: CT Abdomen and pelvis dated 11/09/2016 HISTORY: abd R Flank pain r/o kid stone r/o obstruction COMPARISON: Comparison made with CT scan abdomen pelvis 06/13/2016 TECHNIQUE: Contiguous axial images of the abdomen and pelvis. Oral contrast was administered. No IV contrast given. Coronal and Sagittal reformats generated. Radiation dose: Total exam DLP = 217.75 mGy-cm. This CT exam was performed using one or more of the following dose reduction techniques: Automated exposure control, adjustment of the mA and/or kV according to patient size, and/or use of iterative reconstruction technique. FINDINGS: LOWER THORAX: No focal consolidation. Minor atelectasis and or scarring both lung bases right greater than left. Effusion or basilar pneumothorax. There is small hiatal hernia with slight wall thickening of the distal esophagus that could be due to protrusion of gastric mucosa. Possibility of esophagitis not excluded. LIVER: Liver exhibits normal size measuring approximately 16.6 cm in CC dimension. No obvious hepatic mass collection or calcification. GALLBLADDER AND BILE DUCTS: Gallbladder is physiologically distended. No evidence of intraluminal gallbladder calculi. PANCREAS: The pancreas appears grossly unremarkable without obvious mass collection or calcification. No significant ductal dilatation. SPLEEN: Spleen exhibits normal size and attenuation pattern without mass collection or calcification. 6 views ADRENALS: Unremarkable. KIDNEYS AND URETERS: Kidneys exhibit relatively symmetric size. There is mild prominent right renal pelvis and proximal ureter however the mid and distal ureter appears collapsed. There is a tiny approximately 2.2 mm calcification near the location of the mid to distal right urine located in the right aspect of the upper pelvis at approximately the L5 level seen on axial image number 101 of ; it is unclear whether this is located in the ureter below this calcification was present on the prior study. The calcification could represent an incompletely obstructing ureteral calculus. Clinical correlation recommended urinalysis suggested. . Follow-up urologic consultation recommended Small approximately 3.9 mm nonobstructing calculus within the midpole left kidney unchanged. BLADDER: Urinary bladder is physiologically distended. No evidence of intraluminal urinary bladder calculi REPRODUCTIVE: Uterus appears grossly unremarkable. APPENDIX: Normal as detailed below BOWEL: The stomach is incompletely distended which presumably accounts for thick-walled appearance. Gastritis not excluded. Visualized loops of small bowel exhibit normal contour and caliber. No evidence of acute mechanical bowel obstruction. Multiple colonic diverticula are again seen including involvement of the right colon however no radiographic evidence of acute diverticulitis. The wake appendix of best seen on coronal image number [id number]. No periappendiceal inflammatory changes. PERITONEUM: Unremarkable. No fluid collection. No free air. Small fat containing umbilical hernia ; this does not contain any bowel. LYMPH NODES: Unremarkable. No enlarged lymph nodes. VASCULATURE: Unremarkable. No aortic aneurysm. BONES: Mild multilevel degenerative spondylosis of the lower thoracic and lumbar spine. OTHER FINDINGS: None. IMPRESSION: Slightly prominent right renal collecting system and proximal right ureter however the distal ureter appears relatively collapsed. There is a tiny at 2.2 mm calcifications seen in the in the region of the mid to distal right ureter, located in the upper right aspect pelvis at approximately the L5 level. This could represent a nonobstructing right ureteral calculus. Clinical correlation recommended. Urologic consultation is suggested. Diverticulosis without radiographic evidence of acute diverticulitis. Small hiatal hernia.
[2016-11-09 16:22] VITALS: RESP 16; O2SAT 98
[2016-11-09 16:25] VITALS: BP 120/80; PULSE 70
== END 2016-11-09 15:58 | disposition home or self-care (01) ==
LOC: ED 11:15
DX: N23 Unspecified renal colic (principal)
CPT/HCPCS: 74176; 80053; 81001; 82948; 83690; 85025; 87086; 96374; 99284; J7040; Q9966

== ENCOUNTER 2016-11-20 23:23 | Observation (INO) | payer MEDICAID ==
[2016-11-20 23:44] VITALS: BMI 19.3
--- NOTE | 2016-11-20 23:55 | ED PDOC ---
Arrival/HPI - General Time Seen by Provider: 11/20/16 23:44 Historian: Patient - History of Present Illness Narrative History of Present Illness (Text): 11/20/16 23:57 Minerva Lemus is a 61 year old female, whose past medical history includes kidney stones, hypertension, diabetes, hyperlipidemia, hypothyroidism, asthma, and TIA, who presents to the Emergency department accompanied by daughter complaining of lower abdominal pain today. Patient also reports associated nausea, vomiting, and decreased PO intake secondary to vomiting. Daughter notes patient had chills earlier during the day. Patient also reports associated back pain secondary to kidney stones, for which she was seen and evaluated by her urologist. Patient denies any fever, chills, chest pain, shortness of breath, diarrhea, urinary symptoms, neck pain, headache, dizziness, or any other complaints. Time/Duration: Other (today) Symptom Onset: Gradual Symptom Course: Unchanged Activities at Onset: Rest, Light Context: Home Past Medical History - Provider Review Nursing Documentation Reviewed: Yes - Infectious Disease Hx of Infectious Diseases: None - Tetanus Immunization Tetanus Immunization: Unknown - Cardiac Hx Cardiac Disorders: Yes Hx Hypertension: Yes - Pulmonary Hx Respiratory Disorders: Yes Hx Asthma: Yes Hx Emphysema: Yes - Neurological Hx Neurological Disorder: No - HEENT Hx HEENT Disorder: Yes Other/Comment: left eye scraping 10/2016 - Renal Hx Renal Disorder: No Hx Kidney Stones: Yes (right) - Endocrine/Metabolic Hx Endocrine Disorders: Yes Hx Diabetes Mellitus Type 2: Yes Hx Hypothyroidism: Yes - Hematological/Oncological Hx Blood Disorders: No - Integumentary Hx Dermatological Disorder: No - Musculoskeletal/Rheumatological Hx Musculoskeletal Disorders: Yes Hx Arthritis: Yes Hx Osteoarthritis: Yes Hx Osteoporosis: Yes - Gastrointestinal Hx Gastrointestinal Disorders: No - Genitourinary/Gynecological Hx Genitourinary Disorders: No - Psychiatric Hx Psychophysiologic Disorder: Yes Hx Bipolar Disorder: No Hx Emotional Abuse: No Hx Hallucinations: No Hx Panic Disorder: No Hx Post Traumatic Stress Disorder: No Hx Psychosis: No Hx Physical Abuse: No Hx Schizophrenia: No Hx Sexual Abuse: No Hx Substance Use: No - Surgical History Hx Orthopedic Surgery: Yes (BACK 10yrs ago) Other/Comment: breast bx - Anesthesia Hx Anesthesia: Yes Hx Anesthesia Reactions: No Hx Malignant Hyperthermia: No - Suicidal Assessment Feels Threatened In Home Enviroment: No Family/Social History - Physician Review Nursing Documentation Reviewed: Yes Family/Social History: No Known Family HX Smoking Status: Never Smoked Hx Alcohol Use: No Hx Substance Use: No Hx Substance Use Treatment: No Allergies/Home Meds Allergies/Adverse Reactions: Allergies No Known Allergies Allergy (Verified 11/20/16 23:44) Home Medications: Home Meds Medication Instructions Recorded Confirmed Levothyroxine Sodium 0.075 mg PO DAILY 03/12/12 11/09/16 Lisinopril [Zestril] 10 mg PO DAILY 04/17/16 11/09/16 MetFORMIN [glucoPHAGE] 500 mg PO BID 04/17/16 11/09/16 Simvastatin [Zocor] 20 mg PO DAILY 04/17/16 11/09/16 Neomycin/Polymyxin/Bacitr/HC 3.5 gm OD QID 11/09/16 11/09/16 [Cortisporin Opht Oint] Review of Systems - Physician Review All systems were reviewed & negative as marked: Yes - Review of Systems Constitutional: Normal. absent: Fevers Eyes: Normal ENT: Normal Respiratory: Normal. absent: SOB, Cough Cardiovascular: Normal. absent: Chest Pain Gastrointestinal: Abdominal Pain, Nausea, Vomiting. absent: Diarrhea Genitourinary Female: Normal. absent: Dysuria, Hematuria, Urine Output Changes Musculoskeletal: Normal. absent: Back Pain, Neck Pain Skin: Normal. absent: Rash Neurological: Normal. absent: Headache, Dizziness Endocrine: Normal Hemo/Lymphatic: Normal Psychiatric: Normal Physical Exam Vital Signs Reviewed: Yes Vital Signs Temp Pulse Resp BP Pulse Ox 11/21/16 02:43 98.0 F 75 16 126/88 98 11/21/16 00:05 97.9 F 71 18 123/79 97 Temperature: Afebrile Blood Pressure: Normal Pulse: Regular Respiratory Rate: Normal Appearance: Positive for: Well-Appearing, Non-Toxic, Comfortable Pain Distress: None Mental Status: Positive for: Alert and Oriented X 3 - Systems Exam Head: Present: Atraumatic, Normocephalic Pupils: Present: PERRL Extroacular Muscles: Present: EOMI Conjunctiva: Present: Normal Mouth: Present: Moist Mucous Membranes Neck: Present: Normal Range of Motion Respiratory/Chest: Present: Clear to Auscultation, Good Air Exchange. No: Respiratory Distress, Accessory Muscle Use Cardiovascular: Present: Regular Rate and Rhythm, Normal S1, S2. No: Murmurs Abdomen: Present: Normal Bowel Sounds. No: Tenderness, Distention, Peritoneal Signs Back: Present: Normal Inspection Upper Extremity: Present: Normal Inspection. No: Cyanosis, Edema Lower Extremity: Present: Normal Inspection. No: Edema Neurological: Present: GCS=15, CN II-XII Intact, Speech Normal Skin: Present: Warm, Dry, Normal Color. No: Rashes Psychiatric: Present: Alert, Oriented x 3, Normal Insight, Normal Concentration Medical Decision Making ED Course and Treatment: 11/20/16 23:57 Impression: 61 year old female complaining of lower abdominal pain, nausea, and vomiting today. Differential Diagnosis include but are not limited to: Plan: -- CT Abdomen and Pelvis w/o contrast -- EKG -- Labs, cardiac enzymes, amylase, lipase, VBG -- UA -- IV fluids -- Zofran Prior Visits: Notes and results from previous visits were reviewed. Progress Notes: 11/21/16 02:59 Reviewed EKG, NSR at [address]-segment elevations or depressions, no T-wave inversions, normal intervals. 11/21/16 03:14 CT Abdomen and Pelvis shows: Limitations: Lack of intravenous contrast. 1. Possible mild enteritis. Clinical correlation is needed. 2. Incidental/non-acute findings are described above. -- Morphine -- Reassess and disposition 11/21/16 03:[address] Crockett, who is aware and agrees with plan. Accepts pt in to hospitalist service. Pt will go to [facility] observation for abdominal pain. residential green building designer notified. - Lab Interpretations Microbiology Results: Microbiology Results 11/21/16 03:40 Blood-Venous Blood Culture - Preliminary NO GROWTH AFTER 3 DAYS 11/21/16 03:15 Blood-Venous Blood Culture - Preliminary NO GROWTH AFTER 3 DAYS 11/21/16 01:51 Urine,Clean Catch Urine Culture - Final No Growth (<1,000 CFU/ML) Lab Results: 11/21/16 00:20 11/21/16 00:20 Lab Results 11/21/16 01:51: Urine Color Yellow, Urine Appearance Clear, Urine pH 7.0, Ur Specific Baden <= 1.005, Urine Protein Negative, Urine Glucose (UA) Negative, Urine Ketones Negative, Urine Blood Negative, Urine Nitrate Negative, Urine Bilirubin Negative, Urine Urobilinogen 0.2, Ur Leukocyte Esterase Negative 11/21/16 00:50: pO2 136 H, VBG pH 7.36, VBG pCO2 46.0, VBG HCO3 26.0, VBG Total CO2 27.4, VBG O2 Sat (Calc) 99.1 H, VBG Base Excess 0.1, VBG Potassium 4.6, Glucose 133 H, Lactate 2.8 H, FiO2 21.0, Sodium 138.0, Chloride 110.0 H, Venous Blood Potassium 4.6 11/21/16 00:20: Sodium 140, Potassium 4.5, Chloride 101, Carbon Dioxide 30, Anion Gap 14, BUN 21, Creatinine 0.8, Est GFR ( Amer) > 60, Est GFR (Non- Af Amer) > 60, Random Glucose 109, Calcium 9.8, Total Bilirubin 0.5, AST 21, ALT 27, Alkaline Phosphatase 113, Lactate Dehydrogenase 466, Total Creatine Kinase 116, Troponin I < 0.01, Total Protein 7.5, Albumin 4.3, Globulin 3.2, Albumin/Globulin Ratio 1.3, Amylase 92, Lipase 186 11/21/16 00:20: PT 10.4, INR 0.96, APTT 24.8 11/21/16 00:20: WBC 12.5 H D, RBC 4.07, Hgb 12.1, Hct 35.8 L, MCV 88.0, MCH 29.7 , MCHC 33.8, RDW 12.9, Plt Count 235, MPV 10.3, Gran % 75.7 H, Lymph % (Auto) 13.6 L, Schley % (Auto) 3.3, Eos % (Auto) 7.2 H, Baso % (Auto) 0.2, Gran # 9.48 H , Lymph # 1.7, Schley # 0.4, Eos # 0.9 H, Baso # 0.03 I have reviewed the lab results: Yes - RAD Interpretation Narrative RAD Interpretations (Text): CT Abdomen and Pelvis shows: Limitations: Lack of intravenous contrast. Lower thorax: Minimal atelectasis/scarring. Small hiatal hernia. ABDOMEN: Liver: Unremarkable. Gallbladder and bile ducts: No calcified stones. No ductal dilation. Pancreas: Unremarkable. No ductal dilation. Spleen: No splenomegaly. Adrenals: No mass. Kidneys and ureters: Small calcification/calculus within LEFT kidney. No hydronephrosis. Stomach and bowel: Few scattered diverticula within colon. No associated inflammatory stranding. Apparent mild mural thickening of few jejunal loops. No associated inflammatory stranding. No obstruction. Appendix: Normal caliber. No inflammation. PELVIS: Bladder: Unremarkable. No stones. Reproductive: Unremarkable as visualized. ABDOMEN and PELVIS: Intraperitoneal space: No significant fluid collection. No free air. Bones/joints: Mild degenerative changes of spine. No acute fracture. Soft tissues: Tiny inguinal hernias containing fat. Tiny umbilical hernia containing fat. Vasculature: Mild atherosclerotic disease. No abdominal aortic aneurysm. Lymph nodes: No pathologically enlarged lymph nodes. IMPRESSION: 1. Possible mild enteritis. Clinical correlation is needed. 2. Incidental/non-acute findings are described above. -- Morphine -- Reassess and disposition Radiology Orders: 11/20/16 23:56 ABD & PELVIS W/O PO OR IV CONT [CT] Stat Customer Contact Specialist: Radiologist - EKG Interpretation Interpreted by ED Physician: Yes Type: 12 lead EKG - Medication Orders Current Medication Orders: Discontinued Medications Acetaminophen (Tylenol 325mg Tab) 650 mg PO Q6H PRN PRN Reason: Headache Last Admin: 11/22/16 06:09 Dose: 650 mg Re-Assess: MAR Pain/Vitals Document 11/22/16 07:09 [facility] (Rec: 11/22/16 10:05 [facility] [id number]) Pain Reassessment Is This A Pain ReAssessment? Yes Sleep Is patient sleeping during reassessment? No Presence of Pain Presence of Pain No Atorvastatin Calcium (Lipitor) 10 mg PO DIN [facility] Last Admin: 11/21/16 17:17 Dose: 10 mg Barium Sulfate (Readi-Cat 2) Confirm Administered Dose 900 ml PO .STK-MED ONE Stop: 11/21/16 07:15 Heparin Sodium (Porcine) (Heparin) 5,000 units SC Q8 [facility] PRN Reason: Protocol Last Admin: 11/22/16 13:08 Dose: 5,000 units Sodium Chloride (Sodium Chloride 0.9%) 1,000 mls @ 100 mls/hr IV .Q10H STA Stop: 11/21/16 09:55 Last Admin: 11/21/16 00:28 Dose: 100 mls/hr Cefepime HCl (Maxipime 1gm) 1 gm in 100 mls @ 100 mls/hr IVPB Q24H [facility] PRN Reason: Protocol Last Admin: 11/21/16 02:06 Dose: 100 mls/hr Metronidazole (Flagyl) 500 mg in 100 mls @ 100 mls/hr IVPB Q8 [facility] PRN Reason: Protocol Last Admin: 11/22/16 13:09 Dose: 100 mls/hr Ceftriaxone Sodium (Rocephin 1 Gram Ivpb) 1 gm in 100 mls @ 100 mls/hr IVPB DAILY [facility] PRN Reason: Protocol Last Admin: 11/22/16 10:04 Dose: 100 mls/hr Insulin Human Regular (Humulin R) 0 units SC ACHS [facility] PRN Reason: Protocol Last Admin: 11/22/16 11:27 Dose: Not Given Non-Admin Reason: Blood Sugar Parameter Iodixanol (Visipaque 320 Mg/Ml 100 Ml) Confirm Administered Dose 100 ml IV .STK- MED ONE Stop: 11/21/16 11:57 Lisinopril (Zestril) 10 mg PO DAILY [facility] Last Admin: 11/22/16 10:05 Dose: 10 mg Morphine Sulfate (Morphine) 2 mg IVP STAT STA Stop: 11/20/16 23:57 Last Admin: 11/21/16 00:29 Dose: Not Given Non-Admin Reason: Patient Refused Ondansetron HCl (Zofran Inj) 4 mg IVP STAT STA Stop: 11/20/16 23:57 Last Admin: 11/21/16 00:29 Dose: 4 mg Ondansetron HCl (Zofran Inj) 4 mg IVP Q6H PRN PRN Reason: Nausea/Vomiting Pantoprazole Sodium (Protonix Inj) 40 mg IVP DAILY [facility] Last Admin: 11/22/16 10:04 Dose: 40 mg Pantoprazole Sodium (Protonix Ec Tab) 40 mg PO 0630 [facility] Polyethylene Glycol (Miralax) 17 gm PO BID [facility] Last Admin: 11/22/16 10:04 Dose: 17 gm - Scribe Statement The provider has reviewed the documentation as recorded by the Jan Escobar Provider Attestation: All medical record entries made by the Marcusibgreta were at my direction and personally dictated by me. I have reviewed the chart and agree that the record accurately reflects my personal performance of the history, physical exam, medical decision making, and the department course for this patient. I have also personally directed, reviewed, and agree with the discharge instructions and disposition. Disposition/Present on Arrival - Present on Arrival Any Indicators Present on Arrival: No History of DVT/PE: No History of Uncontrolled Diabetes: No Urinary Catheter: No History of Decub. Ulcer: No History Surgical Site Infection Following: None - Disposition Have Diagnosis and Disposition been Completed?: Yes Diagnosis: Abdominal pain Disposition: HOSPITALIZED Disposition Time: 03:30 Condition: GOOD
[2016-11-20] MEDS ORDERED: Morphine 2 mg/ml ISec IVP STA (23:56)
[2016-11-20] MEDS ORDERED: Sodium Chloride 0.9% 1,000 ML IV STA (23:56)
[2016-11-21 00:38] LABS: ADD MANUAL DIFF? NO
[2016-11-21 00:47] LABS: BASO # 0.03 K/mm3 (0.0-2.0); BASO % 0.2 % (0.0-3.0); EOS # 0.9 (0.0-0.7); EOS % 7.2 % (1.5-5.0); GRAN # 9.48 (1.4-6.5); GRAN % 75.7 % (50.0-68.0); HEMATOCRIT 35.8 % (36.0-48.0); LYMPH # 1.7 (1.2-3.4); LYMPH % 13.6 % (22.0-35.0); MEAN CORPUSCULAR HEMOGLOBIN 29.7 pg (25.0-35.0); MEAN CORPUSCULAR HGB CONC 33.8 g/dl (31.0-37.0); MEAN PLATELET VOLUME 10.3 fl (7.0-11.0); MONO # 0.4 (0.1-0.6); MONO % 3.3 % (1.0-6.0); PLATELET COUNT 235 10^3/uL (120.0-450.0); RED CELL DISTRIBUTION WIDTH 12.9 % (11.5-14.5); WHITE BLOOD COUNT 12.5 10^3/ul (4.5-11.0)
[2016-11-21 00:54] LABS: ALB/GLOB RATIO 1.3 (1.1-1.8); ALKALINE PHOSPHATASE 113 U/L (38-133); ALT/SGPT 27 U/L (7-56); AMYLASE 92 U/L (35-125); AST/SGOT 21 U/L (15-39); BILIRUBIN,TOTAL 0.5 mg/dL (0.2-1.3); BLOOD UREA NITROGEN 21 mg/dL (7-21); CALCIUM 9.8 mg/dL (8.4-10.5); CARBON DIOXIDE 30 mmol/L (21-33); CHLORIDE 101 mmol/L (98-107); GFR AFRICAN-AMERICAN > 60; GLUCOSE,RANDOM 109 mg/dL (70-110); INR 0.96 (0.93-1.08); LIPASE 186 U/L (23-300); PARTIAL THROMBOPLASTIN TIME 24.8 Seconds (23.7-30.8); POTASSIUM 4.5 mmol/L (3.6-5.0); SODIUM 140 mmol/L (132-148); TOTAL PROTEIN 7.5 g/dL (5.8-8.3)
[2016-11-21 01:15] LABS: VENOUS BLOOD GAS BASE EXCESS 0.1 mmol/L (0.0-2.0); VENOUS BLOOD PH 7.36 (7.32-7.43)
[2016-11-21 01:19] LABS: TROPONIN I < 0.01 ng/mL
[2016-11-21] MEDS ORDERED: Cefepime 1gm in NS 100ml 1 GM/100 ML BAG IVPB SCH (01:30)
[2016-11-21 02:19] LABS: URINE BILIRUBIN NEGATIVE (NEGATIVE); URINE BLOOD NEGATIVE (NEGATIVE); URINE GLUCOSE (UA) NEGATIVE (NEGATIVE); URINE KETONE NEGATIVE (NEGATIVE); URINE LEUKOCYTE ESTERASE NEGATIVE Leu/uL (NEGATIVE); URINE PROTEIN NEGATIVE mg/dL (<30 mg/dL); URINE UROBILINOGEN 0.2 E.U./dL (<1 E.U./dL)
[2016-11-21 02:28] LABS: URINE APPEARANCE CLEAR (CLEAR); URINE COLOR YELLOW (YELLOW)
--- NOTE | 2016-11-21 03:13 | CT ---
EXAM: CT Abdomen and Pelvis Without Intravenous Contrast CLINICAL HISTORY: 61 years old, female; Pain; Abdominal pain; Generalized; Additional info: Abd pain TECHNIQUE: Axial computed tomography images of the abdomen and pelvis without intravenous contrast. This CT exam was performed using one or more of the following dose reduction techniques: automated exposure control, adjustment of the mA and/or kV according to patient size, and/or use of iterative reconstruction technique. Coronal and sagittal reformatted images were created and reviewed. COMPARISON: CT - ABD PELVIS W/O PO OR IV CONT 11/09/2016 1:18:52 PM FINDINGS: Limitations: Lack of intravenous contrast. Lower thorax: Minimal atelectasis/scarring. Small hiatal hernia. ABDOMEN: Liver: Unremarkable. Gallbladder and bile ducts: No calcified stones. No ductal dilation. Pancreas: Unremarkable. No ductal dilation. Spleen: No splenomegaly. Adrenals: No mass. Kidneys and ureters: Small calcification/calculus within LEFT kidney. No hydronephrosis. Stomach and bowel: Few scattered diverticula within colon. No associated inflammatory stranding. Apparent mild mural thickening of few jejunal loops. No associated inflammatory stranding. No obstruction. Appendix: Normal caliber. No inflammation. PELVIS: Bladder: Unremarkable. No stones. Reproductive: Unremarkable as visualized. ABDOMEN and PELVIS: Intraperitoneal space: No significant fluid collection. No free air. Bones/joints: Mild degenerative changes of spine. No acute fracture. Soft tissues: Tiny inguinal hernias containing fat. Tiny umbilical hernia containing fat. Vasculature: Mild atherosclerotic disease. No abdominal aortic aneurysm. Lymph nodes: No pathologically enlarged lymph nodes. IMPRESSION: 1. Possible mild enteritis. Clinical correlation is needed. 2. Incidental/non-acute findings are described above.
[2016-11-21 05:15] LABS: VENOUS BLOOD GAS BASE EXCESS 1.6 mmol/L (0.0-2.0); VENOUS BLOOD PH 7.32 (7.32-7.43)
--- NOTE | 2016-11-21 05:40 | CP.PCM.HP ---
Addendum entered and electronically signed by Nuno Silva DO 11/21/16 07: 26: GI, Dr. Lizama, consulted. Help appreciated. Addendum entered and electronically signed by Nuno Silva DO 11/21/16 07: 24: continued.. Assessment and Plan: Hypothyroidism: Synthroid 75 mcg po qd Diabetes Mellitus: Insulin sliding scale Hold metformin HTN: Zestril 10 mg po qd Hypercholesterolemia: Simvastatin 20 mg po qd Original Note: <Nuno Silva - Last Filed: 11/21/16 06:17> History of Present Illness - History of Present Illness History of Present Illness: CC: "Stomach pain, nausea, and vomiting" HPI: Pt is a 61 year old F with a PMHx of hypothryoidism, kidney stones , TIA, asthma, diabetes mellitus, HTN, and osteoporosis who presents to the ED with complaints of mid abdominal pain for a duration of about a week. Pt reports that the pain is associated with nausea and vomiting. Pt reports that the pain is worse upon eating. She also reports that she has not been able to hold anything down, immediately vomiting upon eating and drinking. She complains that she had chills yesterday, but no fever. Pt denies chest pain, shortness of breath, constipation, diarrhea, melena, hematochezia, hematemesis, and dysuria. PMHx: Hypothryoidism, kidney stones, asthma, diabetes mellitus, HTN, TIA, and osteoporosis Home medications: Simvastatin 20 mg po qd, lisinopril 5 mgpo qd, levothyroxine 75 mcg po qd, metformin 500 mg po bid Allergies: NKDA Past Surgical Hx: Back surgery Social Hx: Denies tobacco, alcohol, drug use Family Hx: DM Present on Admission - Present on Admission Any Indicators Present on Admission: No Review of Systems - Constitutional Constitutional: Chills. absent: Fever - EENT Eyes: absent: Blurred Vision, Change in Vision Ears: absent: Ear Discharge, Dizziness Nose/Mouth/Throat: absent: Epistaxis, Nasal Congestion - Cardiovascular Cardiovascular: absent: Chest Pain, Dyspnea - Respiratory Respiratory: absent: Cough, Dyspnea - Gastrointestinal Gastrointestinal: Abdominal Pain, Nausea, Vomiting. absent: Constipation, Hematochezia, Melena - Genitourinary Genitourinary: absent: Dysuria - Musculoskeletal Musculoskeletal: Back Pain - Integumentary Integumentary: absent: Bleeding Lesions - Neurological Neurological: absent: Abnormal Hearing, Behavioral Changes, Dizziness - Psychiatric Psychiatric: absent: Anxiety - Endocrine Endocrine: absent: Excessive Sweating, Fatigue Past Patient History - Infectious Disease Hx of Infectious Diseases: None - Tetanus Immunizations Tetanus Immunization: Unknown - Past Social History Smoking Status: Never Smoked - CARDIAC Hx Cardiac Disorders: Yes Hx Hypertension: Yes - PULMONARY Hx Respiratory Disorders: Yes Hx Asthma: Yes Hx Emphysema: Yes - NEUROLOGICAL Hx Neurological Disorder: Yes Hx Dizziness: Yes Hx Transient Ischemic Attacks (TIA): Yes - HEENT Hx HEENT Problems: Yes - RENAL Hx Chronic Kidney Disease: Yes Hx Kidney Stones: Yes - ENDOCRINE/METABOLIC Hx Endocrine Disorders: Yes Hx Diabetes Mellitus Type 2: Yes Hx Hypothyroidism: Yes - HEMATOLOGICAL/ONCOLOGICAL Hx Blood Disorders: No - INTEGUMENTARY Hx Dermatological Problems: No - MUSCULOSKELETAL/RHEUMATOLOGICAL Hx Musculoskeletal Disorders: Yes Hx Back Pain: Yes Hx Falls: Yes Hx Osteoporosis: Yes - GASTROINTESTINAL Hx Gastrointestinal Disorders: No - GENITOURINARY/GYNECOLOGICAL Hx Genitourinary Disorders: Yes Hx Urinary Tract Infection: Yes - PSYCHIATRIC Hx Psychophysiologic Disorder: Yes Hx Anxiety: Yes Hx Depression: Yes - SURGICAL HISTORY Hx Surgeries: Yes - ANESTHESIA Hx Anesthesia: Yes Hx Anesthesia Reactions: No Hx Malignant Hyperthermia: No Meds Allergies/Adverse Reactions: Allergies Allergy/AdvReac Type Severity Reaction Status Date / Time No Known Allergies Allergy Verified 11/20/16 23:44 Physical Exam - Constitutional Appears: No Acute Distress - Head Exam Head Exam: ATRAUMATIC, NORMOCEPHALIC - Eye Exam Eye Exam: EOMI, PERRL - ENT Exam ENT Exam: Mucous Membranes Moist. absent: Mucous Membranes Dry - Respiratory Exam Respiratory Exam: Clear to Auscultation Bilateral. absent: Rales, Rhonchi - Cardiovascular Exam Cardiovascular Exam: +S1, +S2. absent: Gallop, Rubs - GI/Abdominal Exam GI & Abdominal Exam: Normal Bowel Sounds, Soft. absent: Distended, Tenderness - Extremities Exam Extremities exam: Positive for: full ROM. Negative for: pedal edema - Neurological Exam Neurological exam: Alert, Oriented x3 - Psychiatric Exam Psychiatric exam: Normal Affect, Normal Mood - Skin Skin Exam: Normal Color, Warm Results - Vital Signs Recent Vital Signs: Last Vital Signs Temp 98.0 F 11/21/16 02:43 Pulse 75 11/21/16 02:43 Resp 18 11/21/16 05:06 BP 126/88 11/21/16 02:43 Pulse Ox 98 11/21/16 02:43 - Labs Result Diagrams: 11/21/16 00:20 11/21/16 00:20 Labs: Laboratory Results - last 24 hr 11/21/16 05:00 pO2 51 VBG pH 7.32 VBG pCO2 56.0 VBG HCO3 28.9 H VBG Total CO2 30.6 H VBG O2 Sat (Calc) 88.6 H VBG Base Excess 1.6 VBG Potassium 4.7 Sodium 141.0 Chloride 115.0 H Glucose 107 H Lactate 0.7 FiO2 21.0 Venous Blood Potassium 4.7 Assessment & Plan - Assessment and Plan (Free Text) Assessment: Enteritis: Abd/Pelvis CT: few scattered diverticula within colon, thickening of few jejunal loops; no obstruction; mild atherosclerotic disease in the vasculature; possible mild enteritis (please see full report) WBC - 12.5 Afebrile, no leukocytosis Maximpime IV 1 gm q24h NS IVF 100 cc/hr Zofran 4 mg IV q4h prn for nausea Prophylactic Measures: DVT: SCDs, heparin 5000 units sc q8h GI: Protonix 4 mg IV qd <Tj Crockett P - Last Filed: 12/02/16 19:36> Results - Vital Signs Recent Vital Signs: Last Vital Signs Temp 98.4 F 11/22/16 10:03 Pulse 56 L 11/22/16 10:03 Resp 20 11/22/16 10:03 BP 106/72 11/22/16 10:03 Pulse Ox 98 11/22/16 10:03 - Labs Result Diagrams: 11/22/16 08:00 11/22/16 08:00 Attending/Attestation - Attestation I have personally seen and examined this patient.: Yes I have fully participated in the care of the patient.: Yes I have reviewed all pertinent clinical information: Yes
[2016-11-21] MEDS ORDERED: Barium Sulfate Susp 2.1% w/v, 2.0% w/w 450 mL Bottle PO ONE (07:14)
[2016-11-21] MEDS: Insulin Regular 1 UNITS/0.01 ML ML SC SCH ×4 (07:48→22:32)
[2016-11-21] MEDS: cefTRIAXone 1 gm 1 GM/100 ML BAG IVPB SCH (10:05)
--- NOTE | 2016-11-21 10:18 | CARD ---
APPROVED REPORT EKG Measurement Heart [id number] <Conclusion> Normal sinus rhythm
--- NOTE | 2016-11-21 10:41 | CP.PCM.CON ---
<Yulissa Hanley - Last Filed: 11/21/16 14:47> History of Present Illness - History of Present Illness History of Present Illness: Gastroenterology Fellow/PGY4 Progress Note 61 year old female with history of Hypothyroidism, Diabetes, Hypertension, TIA, nephrolithiasis, osteoporosis, syncopal episode 07/2016 with (normal Holter, EEG , 20-39% stenosis B/L ICA), chronic abdominal pain presenting with abdominal pain. Patient and daughter describe chronic wax/waning intermittent abdominal pain for years dating back to 2010 in medical record. She has not noted an association or temporal factor with flares. She describes present episode being for one month with progressive, diffuse pain for one week. Symptoms are worse at epigastrium and left upper abdomen. Associated nausea, heartburn, indigestion , acid reflux, food and liquid regurgitation with intermittent vomiting, self- induced vomiting for relief, bloating, and unintentional eight pound weight loss in the last month. Notes daily bowel habits with intermittent hard stools and straining with not of hard stools especially in the last week. Denies foul odor, melena, hematochezia, or hematemesis. Admits to intake of onions and coffee daily without noted association of worsened symptoms. No prior antiacid use. Denies NSAIDs or alcohol use. recent antibiotics on ER visit11/04 after a dog bite to finger of Augmentin for ten days completed one week ago with Motrin provided. Worsened symptoms started after completion of antibiotics. Prior EGD endorsed to have H pylori Gastritis and normal colonoscopy two years ago. Family-denies colon cancer, stomach cancer Social-denies tobacco, alcohol, illicit drug use Surgery-back surgery over ten years prior, left eye intervention-possibly cataract Review of Systems - Review of Systems Review of Systems: A 12-point review of systems negative except for as above Past Patient History - Infectious Disease Hx of Infectious Diseases: None - Tetanus Immunizations Tetanus Immunization: Unknown - Past Social History Smoking Status: Never Smoked - CARDIAC Hx Cardiac Disorders: Yes Hx Hypertension: Yes - PULMONARY Hx Respiratory Disorders: Yes Hx Asthma: Yes Hx Emphysema: Yes - NEUROLOGICAL Hx Neurological Disorder: Yes Hx Dizziness: Yes Hx Transient Ischemic Attacks (TIA): Yes - HEENT Hx HEENT Problems: Yes - RENAL Hx Chronic Kidney Disease: Yes Hx Kidney Stones: Yes - ENDOCRINE/METABOLIC Hx Endocrine Disorders: Yes Hx Diabetes Mellitus Type 2: Yes Hx Hypothyroidism: Yes - HEMATOLOGICAL/ONCOLOGICAL Hx Blood Disorders: No - INTEGUMENTARY Hx Dermatological Problems: No - MUSCULOSKELETAL/RHEUMATOLOGICAL Hx Musculoskeletal Disorders: Yes Hx Back Pain: Yes Hx Falls: Yes Hx Osteoporosis: Yes - GASTROINTESTINAL Hx Gastrointestinal Disorders: No - GENITOURINARY/GYNECOLOGICAL Hx Genitourinary Disorders: Yes Hx Urinary Tract Infection: Yes - PSYCHIATRIC Hx Psychophysiologic Disorder: Yes Hx Anxiety: Yes Hx Depression: Yes - SURGICAL HISTORY Hx Surgeries: Yes - ANESTHESIA Hx Anesthesia: Yes Hx Anesthesia Reactions: No Hx Malignant Hyperthermia: No Meds Allergies/Adverse Reactions: Allergies Allergy/AdvReac Type Severity Reaction Status Date / Time No Known Allergies Allergy Verified 11/20/16 23:44 - Medications Medications: Current Medications Atorvastatin Calcium (Lipitor) 10 mg PO DIN [facility] Heparin Sodium (Porcine) (Heparin) 5,000 units SC Q8 [facility] PRN Reason: Protocol Cefepime HCl (Maxipime 1gm) 1 gm in 100 mls @ 100 mls/hr IVPB Q24H [facility] PRN Reason: Protocol Last Admin: 11/21/16 02:06 Dose: 100 mls/hr Metronidazole (Flagyl) 500 mg in 100 mls @ 100 mls/hr IVPB Q8 [facility] PRN Reason: Protocol Ceftriaxone Sodium (Rocephin 1 Gram Ivpb) 1 gm in 100 mls @ 100 mls/hr IVPB DAILY [facility] PRN Reason: Protocol Last Admin: 11/21/16 10:05 Dose: 100 mls/hr Insulin Human Regular (Humulin R) 0 units SC ACHS [facility] PRN Reason: Protocol Last Admin: 11/21/16 07:48 Dose: Not Given Lisinopril (Zestril) 10 mg PO DAILY [facility] Last Admin: 11/21/16 10:05 Dose: 10 mg Ondansetron HCl (Zofran Inj) 4 mg IVP Q6H PRN PRN Reason: Nausea/Vomiting Pantoprazole Sodium (Protonix Inj) 40 mg IVP DAILY [facility] Last Admin: 11/21/16 10:05 Dose: 40 mg Physical Exam - Constitutional Appears: Non-toxic, No Acute Distress - Head Exam Head Exam: ATRAUMATIC, NORMOCEPHALIC - Eye Exam Eye Exam: EOMI, PERRL Pupil Exam: PERRL - ENT Exam ENT Exam: Mucous Membranes Moist, Normal Oropharynx - Neck Exam Neck exam: Positive for: Full Rom, Normal Inspection - Respiratory Exam Respiratory Exam: Clear to Auscultation Bilateral. absent: Rales, Rhonchi, Wheezes - Cardiovascular Exam Cardiovascular Exam: RRR, +S1, +S2. absent: Gallop, Rubs - GI/Abdominal Exam GI & Abdominal Exam: Normal Bowel Sounds, Soft, Tenderness. absent: Distended, Firm, Guarding, Organomegaly, Rebound, Rigid Additional comments: diffuse tenderness to palpation, worse at epigastrium and LUQ - Extremities Exam Extremities exam: Positive for: full ROM. Negative for: pedal edema - Neurological Exam Neurological exam: Alert - Psychiatric Exam Psychiatric exam: Normal Affect, Normal Mood - Skin Skin Exam: Dry, Intact, Normal Color, Warm Results - Vital Signs Recent Vital Signs: Last Vital Signs Temp 97.6 F 11/21/16 06:00 Pulse 66 11/21/16 10:05 Resp 18 11/21/16 06:00 BP 113/68 11/21/16 10:05 Pulse Ox 96 11/21/16 06:00 - Labs Result Diagrams: 11/21/16 00:20 11/21/16 00:20 Labs: Laboratory Results - last 24 hr 11/21/16 11/21/16 05:00 09:00 APTT 24.7 pO2 51 VBG pH 7.32 VBG pCO2 56.0 VBG HCO3 28.9 H VBG Total CO2 30.6 H VBG O2 Sat (Calc) 88.6 H VBG Base Excess 1.6 VBG Potassium 4.7 Sodium 141.0 Chloride 115.0 H Glucose 107 H Lactate 0.7 FiO2 21.0 Venous Blood Potassium 4.7 Assessment & Plan - Assessment and Plan (Free Text) Assessment: 61 year old female with history of Hypothyroidism, Diabetes, Hypertension, TIA, nephrolithiasis, osteoporosis, syncopal episode 07/2016 with (normal Holter, EEG , 20-39% stenosis B/L ICA), chronic abdominal pain presenting with abdominal pain. CT A/P showing mural thickening of jejunal loops. Prior EGD endorsed to have H pylori Gastritis and normal colonoscopy two years ago. Plan: >DDx: H pylori gastritis, enteritis >low suspicion for ischemic colitis- no blood stools >diarrhea-recent PO contrast for CT Abdomen angiography >recent antibiotic course >ordered Cdiff, stool culture, O&P >ordered H pylori stool antigen >continue PPI >advance diet as tolerated >supportive care: IVFs, PPI, antiemetics >will benefit from elective EGD/colonoscopy to evaluate unintentional weight loss and if symptoms persist <Emmett Samaniego - Last Filed: 11/21/16 15:18> Meds - Medications Medications: Current Medications Atorvastatin Calcium (Lipitor) 10 mg PO DIN [facility] Heparin Sodium (Porcine) (Heparin) 5,000 units SC Q8 [facility] PRN Reason: Protocol Last Admin: 11/21/16 13:12 Dose: 5,000 units Metronidazole (Flagyl) 500 mg in 100 mls @ 100 mls/hr IVPB Q8 [facility] PRN Reason: Protocol Last Admin: 11/21/16 13:12 Dose: 100 mls/hr Ceftriaxone Sodium (Rocephin 1 Gram Ivpb) 1 gm in 100 mls @ 100 mls/hr IVPB DAILY [facility] PRN Reason: Protocol Last Admin: 11/21/16 10:05 Dose: 100 mls/hr Insulin Human Regular (Humulin R) 0 units SC ACHS [facility] PRN Reason: Protocol Last Admin: 11/21/16 11:29 Dose: Not Given Lisinopril (Zestril) 10 mg PO DAILY [facility] Last Admin: 11/21/16 10:05 Dose: 10 mg Ondansetron HCl (Zofran Inj) 4 mg IVP Q6H PRN PRN Reason: Nausea/Vomiting Pantoprazole Sodium (Protonix Inj) 40 mg IVP DAILY [facility] Last Admin: 11/21/16 10:05 Dose: 40 mg Results - Vital Signs Recent Vital Signs: Last Vital Signs Temp 97.6 F 11/21/16 06:00 Pulse 66 11/21/16 10:05 Resp 18 11/21/16 06:00 BP 113/68 11/21/16 10:05 Pulse Ox 96 11/21/16 06:00 - Labs Result Diagrams: 11/21/16 00:20 11/21/16 00:20 Labs: Laboratory Results - last 24 hr 11/21/16 11/21/16 05:00 09:00 APTT 24.7 pO2 51 VBG pH 7.32 VBG pCO2 56.0 VBG HCO3 28.9 H VBG Total CO2 30.6 H VBG O2 Sat (Calc) 88.6 H VBG Base Excess 1.6 VBG Potassium 4.7 Sodium 141.0 Chloride 115.0 H Glucose 107 H Lactate 0.7 FiO2 21.0 Venous Blood Potassium 4.7 Attending/Attestation - Attestation I have personally seen and examined this patient.: Yes I have fully participated in the care of the patient.: Yes I have reviewed all pertinent clinical information: Yes Notes (Text): 11/21/16 15:17 61 year old female with history of Hypothyroidism, DM, HTN, TIA, nephrolithiasis , osteoporosis, syncope, chronic abdominal pain presenting with abdominal pain. 1. Abdominal pain 2. Constipation Plan: -await CT angio -doubt ischemic colitis as she doesn't have typical symptoms -mild leukocytosis, on antibiotics -recommend supportive care -stool studies for transient diarrhea (probably more likely contrast related) -would start bowel regimen tomorrow -check stool ag for h pylori -hydration -advance diet as tolerated
[2016-11-21] MEDS ORDERED: Iodixanol 320 MG/ML 100 ML BOTTLE IV ONE (11:56)
[2016-11-21] MEDS: metroNIDAZOLE IV 500 mg/100 ml 500 MG/100 ML BAG IVPB SCH ×2 (13:12→22:32)
--- NOTE | 2016-11-21 15:11 | CT ---
PROCEDURE: CT Abdomen and Pelvis with contrast HISTORY: abd pain, with oral contrast as well. COMPARISON: Earlier nonenhanced study same day TECHNIQUE: Contrast dose: 100 cc of Visipaque Radiation dose: Total exam DLP = 355 mGy-cm. This CT exam was performed using one or more of the following dose reduction techniques: Automated exposure control, adjustment of the mA and/or kV according to patient size, and/or use of iterative reconstruction technique. FINDINGS: LOWER THORAX: Unremarkable. LIVER: Unremarkable. No gross lesion or ductal dilatation. GALLBLADDER AND BILE DUCTS: Unremarkable. PANCREAS: Unremarkable. No gross lesion or ductal dilatation. SPLEEN: Unremarkable. ADRENALS: Unremarkable. No mass. KIDNEYS AND URETERS: Unremarkable. No hydronephrosis. No solid mass. VASCULATURE: Unremarkable. No aortic aneurysm. BOWEL: There is mild mural thickening in the proximal small bowel in the left upper quadrant. This could represent enteritis. The colon is unremarkable APPENDIX: Normal appendix. PERITONEUM: Unremarkable. No free fluid. No free air. LYMPH NODES: Unremarkable. No enlarged lymph nodes. BLADDER: Unremarkable. REPRODUCTIVE: Unremarkable. BONES: No acute fracture. OTHER FINDINGS: None. IMPRESSION: Mild mural thickening in the proximal small bowel in the left upper quadrant. Possible enteritis. Study is otherwise unremarkable
[2016-11-21] MEDS ORDERED: Sodium Chloride 0.9% 1,000 ML IV SCH (16:45)
[2016-11-22] MEDS: metroNIDAZOLE IV 500 mg/100 ml 500 MG/100 ML BAG IVPB SCH ×2 (06:08→13:09)
--- NOTE | 2016-11-22 08:17 | CP.PCM.PN ---
<Yulissa Hanley - Last Filed: 11/22/16 14:47> Subjective - Date & Time of Evaluation Date of Evaluation: 11/22/16 Time of Evaluation: 08:14 - Subjective Subjective: Gastroenterology Fellow/PGY4 Progress Note Patient notes slight improvement in abdominal pain. No bowel movement overnight. Notes loose stool yesterday was after oral contrast for CT scan. Tolerating clear liquid diet. A 12-point review of systems negative except for as above. Objective - Vital Signs/Intake and Output Vital Signs (last 24 hours): Temp Pulse Resp BP Pulse Ox 98 F 61 18 112/73 97 11/21/16 16:00 11/21/16 16:00 11/21/16 16:00 11/21/16 16:00 11/21/16 16:00 Intake and Output: 11/22/16 11/22/16 06:59 18:59 Intake Total 780 Balance 780 - Medications Medications: Current Medications Acetaminophen (Tylenol 325mg Tab) 650 mg PO Q6H PRN PRN Reason: Headache Last Admin: 11/22/16 06:09 Dose: 650 mg Atorvastatin Calcium (Lipitor) 10 mg PO DIN [facility] Last Admin: 11/21/16 17:17 Dose: 10 mg Heparin Sodium (Porcine) (Heparin) 5,000 units SC Q8 [facility] PRN Reason: Protocol Last Admin: 11/22/16 06:08 Dose: 5,000 units Metronidazole (Flagyl) 500 mg in 100 mls @ 100 mls/hr IVPB Q8 [facility] PRN Reason: Protocol Last Admin: 11/22/16 06:08 Dose: 100 mls/hr Ceftriaxone Sodium (Rocephin 1 Gram Ivpb) 1 gm in 100 mls @ 100 mls/hr IVPB DAILY [facility] PRN Reason: Protocol Last Admin: 11/21/16 10:05 Dose: 100 mls/hr Insulin Human Regular (Humulin R) 0 units SC ACHS [facility] PRN Reason: Protocol Last Admin: 11/21/16 22:32 Dose: Not Given Lisinopril (Zestril) 10 mg PO DAILY [facility] Last Admin: 11/21/16 10:05 Dose: 10 mg Ondansetron HCl (Zofran Inj) 4 mg IVP Q6H PRN PRN Reason: Nausea/Vomiting Pantoprazole Sodium (Protonix Inj) 40 mg IVP DAILY [facility] Last Admin: 11/21/16 10:05 Dose: 40 mg Polyethylene Glycol (Miralax) 17 gm PO BID [facility] - Labs Labs: PT 10.4 Seconds (9.9-11.8) 11/21/16 00:20 INR 0.96 (0.93-1.08) 11/21/16 00:20 APTT 24.7 Seconds (23.7-30.8) 11/21/16 09:00 - Constitutional Appears: Non-toxic, No Acute Distress - Head Exam Head Exam: ATRAUMATIC, NORMOCEPHALIC - Eye Exam Eye Exam: EOMI, PERRL Pupil Exam: PERRL. absent: Miosis, Mydriatic - ENT Exam ENT Exam: Mucous Membranes Moist, Normal Oropharynx - Neck Exam Neck Exam: Full ROM, Normal Inspection - Respiratory Exam Respiratory Exam: Clear to Ausculation Bilateral. absent: Rales, Rhonchi, Wheezes - Cardiovascular Exam Cardiovascular Exam: RRR, +S1, +S2. absent: Gallop, Rubs - GI/Abdominal Exam GI & Abdominal Exam: Soft, Tenderness, Normal Bowel Sounds. absent: Distended, Firm, Guarding, Rigid, Organomegaly, Rebound Additional comments: diffuse abdominal discomfort, focal tenderness at epigastrium and LUQ - Extremities Exam Extremities Exam: Full ROM. absent: Pedal Edema - Neurological Exam Neurological Exam: Alert, Awake - Psychiatric Exam Psychiatric exam: Normal Affect, Normal Mood - Skin Skin Exam: Dry, Intact, Normal Color, Warm Assessment and Plan - Assessment and Plan (Free Text) Assessment: 61 year old female with history of Hypothyroidism, Diabetes, Hypertension, TIA, nephrolithiasis, osteoporosis, syncopal episode 07/2016 with (normal Holter, EEG , 20-39% stenosis B/L ICA), chronic abdominal pain presenting with abdominal pain. CT A/P showing mural thickening of jejunal loops. Prior EGD endorsed to have H pylori Gastritis and normal colonoscopy two years ago. Plan: >DDx: H pylori gastritis, enteritis >CT Abdomen angiography normal >pending Cdiff, stool culture, O&P- diarrhea likely contrast related >ordered H pylori stool antigen >started Miralax BID >continue PPI >advance to heart healthy diet >will benefit from elective EGD/colonoscopy to evaluate unintentional weight loss <Alex Dye Y - Last Filed: 11/22/16 15:02> Objective - Vital Signs/Intake and Output Vital Signs (last 24 hours): Temp Pulse Resp BP Pulse Ox 98.4 F 56 L 20 106/72 98 11/22/16 10:03 11/22/16 10:03 11/22/16 10:03 11/22/16 10:03 11/22/16 10:03 Intake and Output: 11/22/16 11/22/16 06:59 18:59 Intake Total 780 480 Balance 780 480 - Medications Medications: Current Medications Acetaminophen (Tylenol 325mg Tab) 650 mg PO Q6H PRN PRN Reason: Headache Last Admin: 11/22/16 06:09 Dose: 650 mg Atorvastatin Calcium (Lipitor) 10 mg PO DIN [facility] Last Admin: 11/21/16 17:17 Dose: 10 mg Heparin Sodium (Porcine) (Heparin) 5,000 units SC Q8 [facility] PRN Reason: Protocol Last Admin: 11/22/16 13:08 Dose: 5,000 units Metronidazole (Flagyl) 500 mg in 100 mls @ 100 mls/hr IVPB Q8 [facility] PRN Reason: Protocol Last Admin: 11/22/16 13:09 Dose: 100 mls/hr Ceftriaxone Sodium (Rocephin 1 Gram Ivpb) 1 gm in 100 mls @ 100 mls/hr IVPB DAILY [facility] PRN Reason: Protocol Last Admin: 11/22/16 10:04 Dose: 100 mls/hr Insulin Human Regular (Humulin R) 0 units SC ACHS [facility] PRN Reason: Protocol Last Admin: 11/22/16 11:27 Dose: Not Given Lisinopril (Zestril) 10 mg PO DAILY [facility] Last Admin: 11/22/16 10:05 Dose: 10 mg Ondansetron HCl (Zofran Inj) 4 mg IVP Q6H PRN PRN Reason: Nausea/Vomiting Pantoprazole Sodium (Protonix Ec Tab) 40 mg PO 0630 [facility] Polyethylene Glycol (Miralax) 17 gm PO BID [facility] Last Admin: 11/22/16 10:04 Dose: 17 gm - Labs Labs: 11/22/16 08:00 11/22/16 08:00 PT 10.4 Seconds (9.9-11.8) 11/21/16 00:20 INR 0.96 (0.93-1.08) 11/21/16 00:20 APTT 24.7 Seconds (23.7-30.8) 11/21/16 09:00 Attending/Attestation - Attestation I have personally seen and examined this patient.: Yes I have fully participated in the care of the patient.: Yes I have reviewed all pertinent clinical information, including history, physical exam and plan: Yes Notes (Text): 11/22/16 14:59 I have seen and examined patient with GI fellow. No acute events overnight. Her abdominal pain has resolved and she is seen resting in bed comfortably. No bowel movements today thus far. She denies nausea, vomiting, fever/chills. She is hungry and asking for diet to be advanced. DM / HTN TIA Abdominal pain, enteritis Weight loss - Advance diet as tolerated - Awaiting results of stool studies - Continue with PPI therapy - Patient would benefit from elective outpatient endoscopic evaluation for weight loss. No ongoing GI issues, will sign off case. Please reconsult as necessary, thank you.
[2016-11-22 08:18] LABS: ADD MANUAL DIFF? NO
[2016-11-22 08:24] LABS: BASO # 0.02 K/mm3 (0.0-2.0); BASO % 0.3 % (0.0-3.0); EOS # 0.5 (0.0-0.7); EOS % 7.6 % (1.5-5.0); GRAN # 4.24 (1.4-6.5); GRAN % 64.3 % (50.0-68.0); HEMATOCRIT 34.8 % (36.0-48.0); LYMPH # 1.5 (1.2-3.4); LYMPH % 23.1 % (22.0-35.0); MEAN CELL VOLUME 87.2 fL (80.0-105.0); MEAN CORPUSCULAR HEMOGLOBIN 29.1 pg (25.0-35.0); MEAN CORPUSCULAR HGB CONC 33.3 g/dl (31.0-37.0); MEAN PLATELET VOLUME 9.6 fl (7.0-11.0); MONO # 0.3 (0.1-0.6); MONO % 4.7 % (1.0-6.0); PLATELET COUNT 196 10^3/uL (120.0-450.0); RED CELL DISTRIBUTION WIDTH 12.7 % (11.5-14.5); WHITE BLOOD COUNT 6.6 10^3/ul (4.5-11.0)
[2016-11-22 08:37] LABS: ALB/GLOB RATIO 1.3 (1.1-1.8); ALKALINE PHOSPHATASE 86 U/L (38-133); ALT/SGPT 31 U/L (7-56); AST/SGOT 20 U/L (15-39); BILIRUBIN,TOTAL 0.7 mg/dL (0.2-1.3); BLOOD UREA NITROGEN 11 mg/dL (7-21); CALCIUM 9.5 mg/dL (8.4-10.5); CARBON DIOXIDE 28 mmol/L (21-33); CHLORIDE 104 mmol/L (98-107); GFR AFRICAN-AMERICAN > 60; GLUCOSE,RANDOM 102 mg/dL (70-110); POTASSIUM 4.3 mmol/L (3.6-5.0); SODIUM 143 mmol/L (132-148); TOTAL PROTEIN 6.9 g/dL (5.8-8.3)
[2016-11-22 08:55] LABS: TROPONIN I < 0.01 ng/mL
--- NOTE | 2016-11-22 09:28 | CP.PCM.PN ---
<Donnie Dozier - Last Filed: 11/22/16 12:10> Subjective - Date & Time of Evaluation Date of Evaluation: 11/22/16 Time of Evaluation: 07:00 - Subjective Subjective: Hospitalist progress note: Pt seen and examined at bedside. No acute events overnight. Pt states that her abd pain is much better. Denies any n/v/d. Pt c/o of substernal chest pain that is non radiating. Stat EKG and Trops were ordered. No other complaints. Denies any Forrester, dizziness, f/c, sob, palpitations, urinary or bm changes. Objective - Vital Signs/Intake and Output Vital Signs (last 24 hours): Temp Pulse Resp BP Pulse Ox 98 F 61 18 112/73 97 11/21/16 16:00 11/21/16 16:00 11/21/16 16:00 11/21/16 16:00 11/21/16 16:00 Intake and Output: 11/22/16 11/22/16 06:59 18:59 Intake Total 780 Balance 780 - Medications Medications: Current Medications Acetaminophen (Tylenol 325mg Tab) 650 mg PO Q6H PRN PRN Reason: Headache Last Admin: 11/22/16 06:09 Dose: 650 mg Atorvastatin Calcium (Lipitor) 10 mg PO DIN [facility] Last Admin: 11/21/16 17:17 Dose: 10 mg Heparin Sodium (Porcine) (Heparin) 5,000 units SC Q8 [facility] PRN Reason: Protocol Last Admin: 11/22/16 06:08 Dose: 5,000 units Metronidazole (Flagyl) 500 mg in 100 mls @ 100 mls/hr IVPB Q8 [facility] PRN Reason: Protocol Last Admin: 11/22/16 06:08 Dose: 100 mls/hr Ceftriaxone Sodium (Rocephin 1 Gram Ivpb) 1 gm in 100 mls @ 100 mls/hr IVPB DAILY [facility] PRN Reason: Protocol Last Admin: 11/21/16 10:05 Dose: 100 mls/hr Insulin Human Regular (Humulin R) 0 units SC ACHS [facility] PRN Reason: Protocol Last Admin: 11/21/16 22:32 Dose: Not Given Lisinopril (Zestril) 10 mg PO DAILY [facility] Last Admin: 11/21/16 10:05 Dose: 10 mg Ondansetron HCl (Zofran Inj) 4 mg IVP Q6H PRN PRN Reason: Nausea/Vomiting Pantoprazole Sodium (Protonix Inj) 40 mg IVP DAILY [facility] Last Admin: 11/21/16 10:05 Dose: 40 mg Polyethylene Glycol (Miralax) 17 gm PO BID [facility] - Labs Labs: 11/22/16 08:00 11/22/16 08:00 PT 10.4 Seconds (9.9-11.8) 11/21/16 00:20 INR 0.96 (0.93-1.08) 11/21/16 00:20 APTT 24.7 Seconds (23.7-30.8) 11/21/16 09:00 - Constitutional Appears: No Acute Distress - Head Exam Head Exam: ATRAUMATIC, NORMAL INSPECTION, NORMOCEPHALIC - Eye Exam Eye Exam: EOMI, Normal appearance, PERRL Pupil Exam: NORMAL ACCOMODATION, PERRL - ENT Exam ENT Exam: Mucous Membranes Moist, Normal Exam - Neck Exam Neck Exam: Full ROM, Normal Inspection. absent: Lymphadenopathy - Respiratory Exam Respiratory Exam: Clear to Ausculation Bilateral, NORMAL BREATHING PATTERN. absent: Rales, Rhonchi, Wheezes - Cardiovascular Exam Cardiovascular Exam: REGULAR RHYTHM, RRR, +S1, +S2. absent: Murmur - GI/Abdominal Exam GI & Abdominal Exam: Soft. absent: Distended, Guarding, Tenderness - Extremities Exam Extremities Exam: Full ROM, Normal Capillary Refill, Normal Inspection. absent : Joint Swelling, Pedal Edema - Back Exam Back Exam: NORMAL INSPECTION - Neurological Exam Neurological Exam: Alert, Awake, Oriented x3 - Psychiatric Exam Psychiatric exam: Normal Affect, Normal Mood - Skin Skin Exam: Dry, Intact, Normal Color, Warm Assessment and Plan - Assessment and Plan (Free Text) Assessment: 61 F with history of Hypothyroidism, DM, HTN, TIA, nephrolithiasis, osteoporosis , syncopal episode 07/2016 with (normal Holter, EEG, 20-39% stenosis B/L ICA), chronic abdominal pain presents with abdominal pain. CT A/P showing mural thickening of prox small bowel possible eneteritis. 1. Enteritis: - HHD as tolerated - Pain control - Abx: Rocephin and flagyl - Abd CT angio : mild mural thickening of prox small bowel - possible enteritis - F/u GI recs - DDx H pylori gastritis/ eneteritis , f/u C diff, H Pylori, ova stool parasite work up; Started miralax BID, cont PPI, EGD & colonoscopy as outpt. - Abd/Pelvis CT: few scattered diverticula within colon, thickening of few jejunal loops; no obstruction; mild atherosclerotic disease in the vasculature; possible mild enteritis (please see full report) - WBC - 6.6 - Afebrile, no leukocytosis - Zofran 4 mg IV q4h prn for nausea 2. Chest pain - Stat ekg and trops ordered - consider aspirin and nitroglycerin - cont to monitor 3. Diabetes Mellitus: - Insulin sliding scale - Hold metformin 4. HTN: - Lisinopril 10 mg po qd 5. Hypercholesterolemia: - Simvastatin 20 mg po qd 6. Hypothyroidism: - Synthroid 75 mcg po qd 7. GI/DVT ppx - HSQ and protonix - heart healthy Case and plan was seen, reviewed, and discussed in detail with Dr Ferreira <Lyndsey Zaman - Last Filed: 11/22/16 16:23> Objective - Vital Signs/Intake and Output Vital Signs (last 24 hours): Temp Pulse Resp BP Pulse Ox 98.4 F 56 L 20 106/72 98 11/22/16 10:03 11/22/16 10:03 11/22/16 10:03 11/22/16 10:03 11/22/16 10:03 Intake and Output: 11/22/16 11/22/16 06:59 18:59 Intake Total 780 480 Balance 780 480 - Labs Labs: 11/22/16 08:00 11/22/16 08:00 PT 10.4 Seconds (9.9-11.8) 11/21/16 00:20 INR 0.96 (0.93-1.08) 11/21/16 00:20 APTT 24.7 Seconds (23.7-30.8) 11/21/16 09:00 Attending/Attestation - Attestation I have personally seen and examined this patient.: Yes I have fully participated in the care of the patient.: Yes I have reviewed all pertinent clinical information, including history, physical exam and plan: Yes Notes (Text): I have seen and examined patient at bedside. This is 61 year old female with history of Hypothyroidism, DM-2, HTN, TIA, nephrolithiasis, osteoporosis, syncopal episode 07/2016 with (normal Holter, EEG, 20-39% stenosis B/L ICA), chronic abdominal pain presents with abdominal pain. CT A/P showing mural thickening of prox small bowel possible enteritis. Will make patient npo. Start IVF, rocephin and flagyl. Dr Lyndsey Zaman
[2016-11-22] MEDS ORDERED: POLYETHYLENE GLYCOL 3350 17 GM/Dose PACKET PO SCH (10:00)
[2016-11-22] MEDS: Insulin Regular 1 UNITS/0.01 ML ML SC SCH ×2 (10:01→11:27)
[2016-11-22 10:04] VITALS: BP 106/72; PULSE 56; RESP 20; TEMP 98.4; O2SAT 98
[2016-11-22] MEDS: cefTRIAXone 1 gm 1 GM/100 ML BAG IVPB SCH (10:04)
--- NOTE | 2016-11-22 11:12 | CARD ---
APPROVED REPORT EKG Measurement Heart [id number] <Conclusion> Sinus bradycardia Otherwise normal ECG
--- NOTE | 2016-11-22 15:20 | CP.PCM.DIS ---
<Donnie Dozier - Last Filed: 11/22/16 15:11> Provider - Provider Date of Admission: 11/21/16 03:41 Attending physician: Lyndsey Zaman MD Consults: GI Time Spent in preparation of Discharge (in minutes): 45 Hospital Course - Lab Results Lab Results: Most Recent Lab Values WBC 6.6 10^3/ul (4.5-11.0) D 11/22/16 08:00 RBC 3.99 10^6/uL (3.5-6.1) 11/22/16 08:00 Hgb 11.6 gm/dL (12.0-16.0) L 11/22/16 08:00 Hct 34.8 % (36.0-48.0) L 11/22/16 08:00 MCV 87.2 fL (80.0-105.0) 11/22/16 08:00 MCH 29.1 pg (25.0-35.0) 11/22/16 08:00 MCHC 33.3 g/dl (31.0-37.0) 11/22/16 08:00 RDW 12.7 % (11.5-14.5) 11/22/16 08:00 Plt Count 196 10^3/uL (120.0-450.0) 11/22/16 08:00 MPV 9.6 fl (7.0-11.0) 11/22/16 08:00 Gran % 64.3 % (50.0-68.0) 11/22/16 08:00 Lymph % (Auto) 23.1 % (22.0-35.0) 11/22/16 08:00 [place] % (Auto) 4.7 % (1.0-6.0) 11/22/16 08:00 Eos % (Auto) 7.6 % (1.5-5.0) H 11/22/16 08:00 Baso % (Auto) 0.3 % (0.0-3.0) 11/22/16 08:00 Gran # 4.24 (1.4-6.5) 11/22/16 08:00 Lymph # 1.5 (1.2-3.4) 11/22/16 08:00 [place] # 0.3 (0.1-0.6) 11/22/16 08:00 Eos # 0.5 (0.0-0.7) 11/22/16 08:00 Baso # 0.02 K/mm3 (0.0-2.0) 11/22/16 08:00 PT 10.4 Seconds (9.9-11.8) 11/21/16 00:20 INR 0.96 (0.93-1.08) 11/21/16 00:20 APTT 24.7 Seconds (23.7-30.8) 11/21/16 09:00 pO2 51 mm/Hg (30-55) 11/21/16 05:00 VBG pH 7.32 (7.32-7.43) 11/21/16 05:00 VBG pCO2 56.0 (40-60) 11/21/16 05:00 VBG HCO3 28.9 mmol/l (21-28) H 11/21/16 05:00 VBG Total CO2 30.6 mmol.L (22-28) H 11/21/16 05:00 VBG O2 Sat (Calc) 88.6 % (40-65) H 11/21/16 05:00 VBG Base Excess 1.6 mmol/L (0.0-2.0) 11/21/16 05:00 VBG Potassium 4.7 mmol/L (3.6-5.2) 11/21/16 05:00 Sodium 141.0 mmol/L (132-148) 11/21/16 05:00 Chloride 115.0 mmol/L (98-107) H 11/21/16 05:00 Glucose 107 mg/dl (65-105) H 11/21/16 05:00 Lactate 0.7 mmol/L (0.7-2.1) 11/21/16 05:00 FiO2 21.0 % 11/21/16 05:00 Sodium 143 mmol/L (132-148) 11/22/16 08:00 Potassium 4.3 mmol/L (3.6-5.0) 11/22/16 08:00 Chloride 104 mmol/L (98-107) 11/22/16 08:00 Carbon Dioxide 28 mmol/L (21-33) 11/22/16 08:00 Anion Gap 15 (10-20) 11/22/16 08:00 BUN 11 mg/dL (7-21) 11/22/16 08:00 Creatinine 0.8 mg/dL (0.5-1.4) 11/22/16 08:00 Est GFR ( Amer) > 60 11/22/16 08:00 Est GFR (Non-Af Amer) > 60 11/22/16 08:00 Random Glucose 102 mg/dL (70-110) 11/22/16 08:00 Calcium 9.5 mg/dL (8.4-10.5) 11/22/16 08:00 Total Bilirubin 0.7 mg/dL (0.2-1.3) 11/22/16 08:00 AST 20 U/L (15-39) 11/22/16 08:00 ALT 31 U/L (7-56) 11/22/16 08:00 Alkaline Phosphatase 86 U/L (38-133) 11/22/16 08:00 Lactate Dehydrogenase 466 U/L (333-699) 11/21/16 00:20 Total Creatine Kinase 116 U/L (35-230) 11/21/16 00:20 Troponin I < 0.01 ng/mL 11/22/16 08:00 Total Protein 6.9 g/dL (5.8-8.3) 11/22/16 08:00 Albumin 4.0 g/dL (3.0-4.8) 11/22/16 08:00 Globulin 3.0 gm/dL 11/22/16 08:00 Albumin/Globulin Ratio 1.3 (1.1-1.8) 11/22/16 08:00 Amylase 92 U/L (35-125) 11/21/16 00:20 Lipase 186 U/L (23-300) 11/21/16 00:20 Venous Blood Potassium 4.7 mmol/L (3.6-5.2) 11/21/16 05:00 Urine Color Yellow (YELLOW) 11/21/16 01:51 Urine Appearance Clear (CLEAR) 11/21/16 01:51 Urine pH 7.0 (4.7-8.0) 11/21/16 01:51 Ur Specific [place] <= 1.005 (1.005-1.035) 11/21/16 01:51 Urine Protein Negative mg/dL (<30 mg/dL) 11/21/16 01:51 Urine Glucose (UA) Negative mg/dL (NEGATIVE) 11/21/16 01:51 Urine Ketones Negative mg/dL (NEGATIVE) 11/21/16 01:51 Urine Blood Negative (NEGATIVE) 11/21/16 01:51 Urine Nitrate Negative (NEGATIVE) 11/21/16 01:51 Urine Bilirubin Negative (NEGATIVE) 11/21/16 01:51 Urine Urobilinogen 0.2 E.U./dL (<1 E.U./dL) 11/21/16 01:51 Ur Leukocyte Esterase Negative [place]/uL (NEGATIVE) 11/21/16 01:51 - Hospital Course Hospital Course: 61 yo F with a PMHx of hypothryoidism, kidney stones, TIA, asthma, diabetes mellitus, HTN, and osteoporosis who presents to the ED with c/o mid epigastric pain x 1 week. The pain is associated with nausea and vomiting that is non bloody non bilious. Worse upon eating. States she has not been able to hold anything down - vomiting upon eating and drinking. She complains of chills yesterday, but denies any fever. In the ED basic lab work was ordered. A CT abdomen was done and showed CT A/P showing mild eneteritis. Pt was admitted for obs for enteritis started on abx and fluids. Gastroeneterology was consulted - DDx H pylori gastritis/ eneteritis , f/u C diff, H Pylori, ova stool parasite work up; Started miralax BID, cont PPI, EGD & colonoscopy as outpatient. CT angio was done and it showed mural thickening of upper L bowel consistent with mild eneteritis as well. Pt was placed on Flagyl and Rocephin. Today the patient feels much better. She is tolerating her diet and Ambulating well. Denies any nausea, vomiting, or abd pain. Denies any Forrest[place], dizziness, f/c, cp, abd pain, unriary or bm changes. DDx: enteritis / abd pain Discharge Exam - Head Exam Head Exam: ATRAUMATIC, NORMOCEPHALIC - Eye Exam Eye Exam: EOMI, Normal appearance, PERRL Pupil Exam: NORMAL ACCOMODATION, PERRL - ENT Exam ENT Exam: Mucous Membranes Moist - Respiratory Exam Respiratory Exam: Clear to PA & Lateral. absent: Rales, Rhonchi, Wheezes - Cardiovascular Exam Cardiovascular Exam: REGULAR RHYTHM, RRR, +S1, +S2 - GI/Abdominal Exam GI & Abdominal Exam: Normal Bowel Sounds, Soft. absent: Distended, Guarding, Tenderness - Neurological Exam Neurological exam: Alert, Normal Gait, Oriented x3, Reflexes Normal - Psychiatric Exam Psychiatric exam: Normal Affect, Normal Mood - Skin Skin Exam: Dry, Intact, Normal Color, Warm Discharge Plan - Discharge Medications Prescriptions: Amoxicillin/Clavulanate [Augmentin 875 MG-125 MG] 1 tab PO BID #20 tab Metronidazole [Flagyl] 500 mg PO Q8H #30 tablet - Follow Up Plan Condition: GOOD Disposition: HOME/ ROUTINE Instructions: Acute Abdominal Pain (DC), Acute Abdominal Pain (GEN) Additional Instructions: F/u with your Primary doctor with in 1 week. If your symptoms recur come back to the ED. Take your medications and your antibiotics as prescribed. Referrals: Emmett Samaniego MD [Staff Provider] - <Lyndsey Zaman - Last Filed: 11/22/16 16:31> Provider - Provider Date of Admission: 11/21/16 03:41 Attending physician: Lyndsey Zaman MD Hospital Course - Lab Results Lab Results: Most Recent Lab Values WBC 6.6 10^3/ul (4.5-11.0) D 11/22/16 08:00 RBC 3.99 10^6/uL (3.5-6.1) 11/22/16 08:00 Hgb 11.6 gm/dL (12.0-16.0) L 11/22/16 08:00 Hct 34.8 % (36.0-48.0) L 11/22/16 08:00 MCV 87.2 fL (80.0-105.0) 11/22/16 08:00 MCH 29.1 pg (25.0-35.0) 11/22/16 08:00 MCHC 33.3 g/dl (31.0-37.0) 11/22/16 08:00 RDW 12.7 % (11.5-14.5) 11/22/16 08:00 Plt Count 196 10^3/uL (120.0-450.0) 11/22/16 08:00 MPV 9.6 fl (7.0-11.0) 11/22/16 08:00 Gran % 64.3 % (50.0-68.0) 11/22/16 08:00 Lymph % (Auto) 23.1 % (22.0-35.0) 11/22/16 08:00 [place] % (Auto) 4.7 % (1.0-6.0) 11/22/16 08:00 Eos % (Auto) 7.6 % (1.5-5.0) H 11/22/16 08:00 Baso % (Auto) 0.3 % (0.0-3.0) 11/22/16 08:00 Gran # 4.24 (1.4-6.5) 11/22/16 08:00 Lymph # 1.5 (1.2-3.4) 11/22/16 08:00 [place] # 0.3 (0.1-0.6) 11/22/16 08:00 Eos # 0.5 (0.0-0.7) 11/22/16 08:00 Baso # 0.02 K/mm3 (0.0-2.0) 11/22/16 08:00 PT 10.4 Seconds (9.9-11.8) 11/21/16 00:20 INR 0.96 (0.93-1.08) 11/21/16 00:20 APTT 24.7 Seconds (23.7-30.8) 11/21/16 09:00 pO2 51 mm/Hg (30-55) 11/21/16 05:00 VBG pH 7.32 (7.32-7.43) 11/21/16 05:00 VBG pCO2 56.0 (40-60) 11/21/16 05:00 VBG HCO3 28.9 mmol/l (21-28) H 11/21/16 05:00 VBG Total CO2 30.6 mmol.L (22-28) H 11/21/16 05:00 VBG O2 Sat (Calc) 88.6 % (40-65) H 11/21/16 05:00 VBG Base Excess 1.6 mmol/L (0.0-2.0) 11/21/16 05:00 VBG Potassium 4.7 mmol/L (3.6-5.2) 11/21/16 05:00 Sodium 141.0 mmol/L (132-148) 11/21/16 05:00 Chloride 115.0 mmol/L (98-107) H 11/21/16 05:00 Glucose 107 mg/dl (65-105) H 11/21/16 05:00 Lactate 0.7 mmol/L (0.7-2.1) 11/21/16 05:00 FiO2 21.0 % 11/21/16 05:00 Sodium 143 mmol/L (132-148) 11/22/16 08:00 Potassium 4.3 mmol/L (3.6-5.0) 11/22/16 08:00 Chloride 104 mmol/L (98-107) 11/22/16 08:00 Carbon Dioxide 28 mmol/L (21-33) 11/22/16 08:00 Anion Gap 15 (10-20) 11/22/16 08:00 BUN 11 mg/dL (7-21) 11/22/16 08:00 Creatinine 0.8 mg/dL (0.5-1.4) 11/22/16 08:00 Est GFR ( Amer) > 60 11/22/16 08:00 Est GFR (Non-Af Amer) > 60 11/22/16 08:00 Random Glucose 102 mg/dL (70-110) 11/22/16 08:00 Calcium 9.5 mg/dL (8.4-10.5) 11/22/16 08:00 Total Bilirubin 0.7 mg/dL (0.2-1.3) 11/22/16 08:00 AST 20 U/L (15-39) 11/22/16 08:00 ALT 31 U/L (7-56) 11/22/16 08:00 Alkaline Phosphatase 86 U/L (38-133) 11/22/16 08:00 Lactate Dehydrogenase 466 U/L (333-699) 11/21/16 00:20 Total Creatine Kinase 116 U/L (35-230) 11/21/16 00:20 Troponin I < 0.01 ng/mL 11/22/16 08:00 Total Protein 6.9 g/dL (5.8-8.3) 11/22/16 08:00 Albumin 4.0 g/dL (3.0-4.8) 11/22/16 08:00 Globulin 3.0 gm/dL 11/22/16 08:00 Albumin/Globulin Ratio 1.3 (1.1-1.8) 11/22/16 08:00 Amylase 92 U/L (35-125) 11/21/16 00:20 Lipase 186 U/L (23-300) 11/21/16 00:20 Venous Blood Potassium 4.7 mmol/L (3.6-5.2) 11/21/16 05:00 Urine Color Yellow (YELLOW) 11/21/16 01:51 Urine Appearance Clear (CLEAR) 11/21/16 01:51 Urine pH 7.0 (4.7-8.0) 11/21/16 01:51 Ur Specific [place] <= 1.005 (1.005-1.035) 11/21/16 01:51 Urine Protein Negative mg/dL (<30 mg/dL) 11/21/16 01:51 Urine Glucose (UA) Negative mg/dL (NEGATIVE) 11/21/16 01:51 Urine Ketones Negative mg/dL (NEGATIVE) 11/21/16 01:51 Urine Blood Negative (NEGATIVE) 11/21/16 01:51 Urine Nitrate Negative (NEGATIVE) 11/21/16 01:51 Urine Bilirubin Negative (NEGATIVE) 11/21/16 01:51 Urine Urobilinogen 0.2 E.U./dL (<1 E.U./dL) 11/21/16 01:51 Ur Leukocyte Esterase Negative [place]/uL (NEGATIVE) 11/21/16 01:51 Attending/Attestation - Attestation I have personally seen and examined this patient.: Yes I have fully participated in the care of the patient.: Yes I have reviewed all pertinent clinical information, including history, physical exam and plan: Yes Notes (Text): I have seen and examined patient at bedside. This is 61 year old female with history of Hypothyroidism, DM-2, HTN, TIA, nephrolithiasis, osteoporosis, syncopal episode 07/2016 with (normal Holter, EEG, 20-39% stenosis B/L ICA), chronic abdominal pain presents with abdominal pain. CT A/P showing mural thickening of prox small bowel possible enteritis. Today she feels better. Denies any nausea, vomiting, abdominal pain, fever or any other complaints. Patient is able to tolerate diet without any problem. GI consult appreciated. Recommended outpatient endoscopy and colonoscopy as an outpatient. Discussed with patients daughter in detail. Upon discharge patient will follow up with Dr Mckinney. Dr Lyndsey Zaman
[2016-11-23] MEDS ORDERED: Pantoprazole 40 mg EC Tab PO SCH (06:30)
== END 2016-11-22 16:12 | disposition home or self-care (01) ==
LOC: ED 23:23 → ERH 11-21 03:41 → 3RNO 11-21 05:13
PROVIDERS: ADMIT Hospitalist; ATTEND Hospitalist
DX: K52.9 Noninfective gastroenteritis and colitis, unspecified (principal); E11.9 Type 2 diabetes mellitus without complications; G89.29 Other chronic pain; M81.0 Age-related osteoporosis without current pathological fracture; J45.909 Unspecified asthma, uncomplicated; I10 Essential (primary) hypertension; E78.5 Hyperlipidemia, unspecified; E03.9 Hypothyroidism, unspecified; E78.00 Pure hypercholesterolemia, unspecified; I65.23 Occlusion and stenosis of bilateral carotid arteries; K29.70 Gastritis, unspecified, without bleeding; B96.81 Helicobacter pylori [H. pylori] as the cause of diseases classified elsewhere; R63.4 Abnormal weight loss; K59.00 Constipation, unspecified; Z79.84 Long term (current) use of oral hypoglycemic drugs; Z86.73 Personal history of transient ischemic attack (TIA), and cerebral infarction without residual deficits; Z87.442 Personal history of urinary calculi
CPT/HCPCS: 36415; 74175; 74176; 80053; 81003; 82150; 82550; 82803; 83615; 83690; 84484; 85025; 85610; 85730; 87040; 87086; 93005; 96374; 99285; C9113; G0378; J0692; J0696; J1644; J2405; J7040; Q9967

== ENCOUNTER 2017-02-05 09:46 | Emergency (ER) | payer MEDICAID ==
[2017-02-05 09:58] VITALS: BP 111/75; PULSE 57; RESP 16; TEMP 98.8; O2SAT 97; BMI 27.4
--- NOTE | 2017-02-05 10:45 | ED PDOC ---
Arrival/HPI - General Historian: Patient <NIA CHEEK - Last Filed: 02/05/17 12:58> <Luis Mcdonald DO - Last Filed: 02/05/17 18:34> - General Chief Complaint: Abdominal Pain Time Seen by Provider: 02/05/17 10:01 - History of Present Illness Narrative History of Present Illness (Text): 02/05/17 10:36 Mrs. Lemus is a 62 year old female with pmh significant for hypothyroidism, kidney stones, asthma, DM, HTN and recent hospitalization for enteritis who complains of left flank pain, pain with urination, and diffuse abdominal pain. She reports the symptoms began 2 days ago when she began having difficultly with urination. She reports left flank pain, left lower abdominal pain that are associated with starting her urinary stream. She reports fever, chills, nausea, vomiting, and loss of appetite. She indicates she has been taking in fluids over this time period. She denies diarrhea, constipation, or blood in her stool. (NIA CHEEK) Past Medical History - Provider Review Nursing Documentation Reviewed: Yes - Infectious Disease Hx of Infectious Diseases: None - Tetanus Immunization Tetanus Immunization: Unknown - Reproductive Menopause: No - Cardiac Hx Cardiac Disorders: Yes Hx Hypertension: Yes - Pulmonary Hx Respiratory Disorders: Yes Hx Asthma: Yes Hx Emphysema: Yes - Neurological Hx Neurological Disorder: No - HEENT Hx HEENT Disorder: Yes Other/Comment: left eye scraping 10/2016 - Renal Hx Renal Disorder: No Hx Kidney Stones: Yes (right) - Endocrine/Metabolic Hx Endocrine Disorders: Yes Hx Diabetes Mellitus Type 2: Yes Hx Hypothyroidism: Yes - Hematological/Oncological Hx Blood Disorders: No - Integumentary Hx Dermatological Disorder: No - Musculoskeletal/Rheumatological Hx Musculoskeletal Disorders: Yes Hx Arthritis: Yes Hx Osteoarthritis: Yes Hx Osteoporosis: Yes - Gastrointestinal Hx Gastrointestinal Disorders: No - Genitourinary/Gynecological Hx Genitourinary Disorders: No - Psychiatric Hx Psychophysiologic Disorder: Yes Hx Bipolar Disorder: No Hx Emotional Abuse: No Hx Hallucinations: No Hx Panic Disorder: No Hx Post Traumatic Stress Disorder: No Hx Psychosis: No Hx Physical Abuse: No Hx Schizophrenia: No Hx Sexual Abuse: No Hx Substance Use: No - Surgical History Hx Orthopedic Surgery: Yes (BACK 10yrs ago) Other/Comment: breast bx - Anesthesia Hx Anesthesia: Yes Hx Anesthesia Reactions: No Hx Malignant Hyperthermia: No - Suicidal Assessment Feels Threatened In Home Enviroment: No <ALEXCELESTINO CONTRERASNIA - Last Filed: 02/05/17 12:58> Family/Social History - Physician Review Nursing Documentation Reviewed: Yes Family/Social History: No Known Family HX Smoking Status: Never Smoked Hx Alcohol Use: No Hx Substance Use: No Hx Substance Use Treatment: No <ALEXNIA - Last Filed: 02/05/17 12:58> Allergies/Home Meds <ALEXNIA - Last Filed: 02/05/17 12:58> <Luis Mcdonald DO - Last Filed: 02/05/17 18:34> Allergies/Adverse Reactions: Allergies No Known Allergies Allergy (Verified 02/05/17 09:58) Home Medications: Home Meds Medication Instructions Recorded Confirmed Lisinopril [Zestril] 10 mg PO DAILY 04/17/16 02/05/17 MetFORMIN [glucoPHAGE] 500 mg PO BID 04/17/16 02/05/17 Simvastatin [Zocor] 20 mg PO DAILY 04/17/16 02/05/17 Review of Systems - Review of Systems Constitutional: Fevers (subjective), Other (chills) Respiratory: absent: SOB, Cough Cardiovascular: absent: Chest Pain, Palpitations Gastrointestinal: Abdominal Pain, Nausea, Vomiting, Appetite Changes, Other ( bloating and distention feelings). absent: Stool Changes, Constipation, Diarrhea, Hematochezia, Hematemesis Genitourinary Female: Dysuria, Frequency, Hematuria Musculoskeletal: Back Pain (left flank pain). absent: Arthralgias Skin: absent: Rash, Pruritis Neurological: absent: Headache, Dizziness Endocrine: absent: Diaphoresis Hemo/Lymphatic: absent: Adenopathy, Easy Bleeding <NIA CHEEK - Last Filed: 02/05/17 12:58> Physical Exam Vital Signs Reviewed: Yes Temperature: Afebrile Blood Pressure: Normal Pulse: Bradycardic Respiratory Rate: Normal Appearance: Positive for: Well-Appearing Pain Distress: Moderate Mental Status: Positive for: Alert and Oriented X 3 Finger Stick Blood Glucose: 176 - Systems Exam Head: Present: Atraumatic, Normocephalic Pupils: Present: PERRL Extroacular Muscles: Present: EOMI Conjunctiva: Present: Normal Mouth: Present: Moist Mucous Membranes Neck: Present: Normal Range of Motion Respiratory/Chest: Present: Clear to Auscultation, Good Air Exchange. No: Respiratory Distress, Accessory Muscle Use Cardiovascular: Present: Regular Rate and Rhythm, Normal S1, S2 Abdomen: Present: Tenderness. No: Distention, Normal Bowel Sounds (hypoactive) , Peritoneal Signs, Rebound, Guarding Upper Extremity: Present: NORMAL PULSES. No: Normal Inspection, Edema Lower Extremity: Present: Normal Inspection, NORMAL PULSES Neurological: Present: GCS=15, CN II-XII Intact, Speech Normal Skin: Present: Warm, Dry Psychiatric: Present: Alert, Oriented x 3 <NIA CHEEK - Last Filed: 02/05/17 12:58> Medical Decision Making <NIA CHEEK - Last Filed: 02/05/17 12:58> <Luis Mcdonald DO - Last Filed: 02/05/17 18:34> ED Course and Treatment: 02/05/17 10:49 Impression: Mrs. Lemus is a 62 year old female who complains of left flank pain, dysuria, and diffuse abdominal pain for the past 2 days. Differential Diagnosis included but are not limited to: - Nephrolithiasis - UTI - pyelonephritis - Enteritis Plan: - CBC, CMP, Urinalysis - Torodol - CT scan abdomen and pelvis -- Reassess and disposition Progress Notes: CT scan pelvis and abdomen - Kidneys and Ureters: Unremarkable. No hydropnephrosis. No solid mass. There is a small non-obstructing stone in the left kidney. - Bladder: unremarkable (NIA CHEEK) Patient Seen With Resident: In agreement with resident note. Patient was seen and evaluated with resident, came up with plan and treatment together. A 62 year old female with left flank pain, diffuse abdominal pain and dysuria. Additional HPI as noted by resident. On physical exam, patient has abdominal tenderness. Ordered CT abdominal and pelvis, labs and Urinalysis. Will give patient Toradol. (Luis Mcdonald DO) - Lab Interpretations Lab Results: 02/05/17 10:30 02/05/17 10:30 Lab Results 02/05/17 10:30: Sodium 140, Potassium 4.3, Chloride 105, Carbon Dioxide 25, Anion Gap 14, BUN 20, Creatinine 0.8, Est GFR ( Amer) > 60, Est GFR (Non- Af Amer) > 60, Random Glucose 145 H, Calcium 9.9, Total Bilirubin 0.5, AST 25, ALT 28, Alkaline Phosphatase 111, Total Protein 7.1, Albumin 4.1, Globulin 3.0, Albumin/Globulin Ratio 1.4 02/05/17 10:30: Urine Color Yellow, Urine Appearance Cloudy, Urine pH 6.0, Ur Specific [place] 1.025, Urine Protein 100 H, Urine Glucose (UA) Negative, Urine Ketones Negative, Urine Blood Large H, Urine Nitrate Negative, Urine Bilirubin Negative, Urine Urobilinogen 0.2, Ur Leukocyte Esterase Moderate H, Urine RBC 5 - 10, Urine WBC Tntc, Urine Bacteria Few 02/05/17 10:30: WBC 8.9 D, RBC 4.06, Hgb 12.0, Hct 36.0, MCV 88.7, MCH 29.6, MCHC 33.3, RDW 12.9, Plt Count 189, MPV 9.9 - RAD Interpretation Radiology Orders: 02/05/17 11:10 ABD & PELVIS W/O PO OR IV CONT [CT] Stat - Medication Orders Current Medication Orders: Discontinued Medications Ketorolac Tromethamine (Toradol) 30 mg IVP STAT STA Stop: 02/05/17 10:34 Last Admin: 02/05/17 10:39 Dose: 30 mg - PA / GALLERY OR MUSEUM ATTENDANT / Resident Statement SHAHIDA has reviewed & agrees with the documentation as recorded. SHAHIDA has examined the patient and agrees with the treatment plan. <NIA CHEEK - Last Filed: 02/05/17 12:58> - Scribe Statement The provider has reviewed the documentation as recorded by the Scribe <Luis Mcdonald DO - Last Filed: 02/05/17 18:34> - Scribe Statement Phill Price All medical record entries made by the Scribe were at my direction and personally dictated by me. I have reviewed the chart and agree that the record accurately reflects my personal performance of the history, physical exam, medical decision making, and the department course for this patient. I have also personally directed, reviewed, and agree with the discharge instructions and disposition. (Luis Mcdonald DO) Disposition/Present on Arrival - Present on Arrival Any Indicators Present on Arrival: No History of DVT/PE: No History of Uncontrolled Diabetes: No Urinary Catheter: No History of Decub. Ulcer: No History Surgical Site Infection Following: None - Disposition Have Diagnosis and Disposition been Completed?: Yes Disposition Time: 12:02 <NYLANIA GUZMÁN - Last Filed: 02/05/17 12:58> <Harry Luis BUTTERFIELD - Last Filed: 02/05/17 18:34> - Disposition Diagnosis: Pyelonephritis Disposition: HOME/ ROUTINE Condition: GOOD Discharge Instructions (ExitCare): Acute Pyelonephritis (ED) Additional Instructions: Thank you for letting us take care of you today. Your provider was Dr. Mcdonald. You were treated for a kidney infection. The emergency medical care you received today was directed at your acute symptoms. If you were prescribed any medication, please fill it and take as directed. It may take several days for your symptoms to resolve. Return to the Emergency Department if your symptoms worsen, do not improve, or if you have any other problems. Please contact your doctor or call one of the physicians/clinics you have been referred to that are listed on the Patient Visit Information form that is included in your discharge packet. Bring any paperwork you were given at discharge with you along with any medications you are taking to your follow up visit. Our treatment cannot replace ongoing medical care by a primary care provider (PCP) outside of the emergency department. Thank you for allowing the [facility] team to be part of your care today. Follow up with your doctor in 2-3 days for re-evaluation. Prescriptions: Ciprofloxacin [Cipro] 500 mg PO BID #20 tab Ondansetron ODT [Zofran ODT] 4 mg PO Q6 PRN #20 odt PRN Reason: Nausea/Vomiting Referrals: Taye Mckinney MD [Primary Care Provider] - Follow up with primary
[2017-02-05 10:53] LABS: MEAN CELL VOLUME 88.7 fL (80.0-105.0); MEAN CORPUSCULAR HEMOGLOBIN 29.6 pg (25.0-35.0); MEAN CORPUSCULAR HGB CONC 33.3 g/dl (31.0-37.0); MEAN PLATELET VOLUME 9.9 fl (7.0-11.0); RBC 4.06 10^6/uL (3.5-6.1); RED CELL DISTRIBUTION WIDTH 12.9 % (11.5-14.5); WHITE BLOOD COUNT 8.9 10^3/ul (4.5-11.0)
[2017-02-05 10:55] LABS: URINE APPEARANCE CLOUDY (CLEAR); URINE BILIRUBIN NEGATIVE (NEGATIVE); URINE BLOOD LARGE (NEGATIVE); URINE COLOR YELLOW (YELLOW); URINE GLUCOSE (UA) NEGATIVE (NEGATIVE); URINE LEUKOCYTE ESTERASE MODERATE Leu/uL (NEGATIVE); URINE NITRATE NEGATIVE (NEGATIVE); URINE PROTEIN 100 mg/dL (<30 mg/dL); URINE UROBILINOGEN 0.2 E.U./dL (<1 E.U./dL)
[2017-02-05 11:05] LABS: URINE BACTERIA FEW (NEG); URINE WBC TNTC /hpf (0-6)
[2017-02-05 11:09] LABS: ALB/GLOB RATIO 1.4 (1.1-1.8); ALBUMIN 4.1 g/dL (3.0-4.8); ALT/SGPT 28 U/L (7-56); AST/SGOT 25 U/L (15-39); BLOOD UREA NITROGEN 20 mg/dL (7-21); CALCIUM 9.9 mg/dL (8.4-10.5); GFR AFRICAN-AMERICAN > 60; GFR NON-AFRICAN AMERICAN > 60
--- NOTE | 2017-02-05 11:50 | CT ---
PROCEDURE: CT Abdomen and Pelvis without intravenous contrast HISTORY: left flank pain COMPARISON: 11/21/2016 TECHNIQUE: Without contrast. Contrast Dose: Radiation dose: Total exam DLP = 294 mGy-cm. This CT exam was performed using one or more of the following dose reduction techniques: Automated exposure control, adjustment of the mA and/or kV according to patient size, and/or use of iterative reconstruction technique. FINDINGS: LOWER THORAX: Unremarkable. LIVER: Unremarkable. No gross lesion or ductal dilatation. GALLBLADDER AND BILE DUCTS: Unremarkable. PANCREAS: Unremarkable. No gross lesion or ductal dilatation. SPLEEN: Unremarkable. ADRENALS: Unremarkable. No mass. KIDNEYS AND URETERS: Unremarkable. No hydronephrosis. No solid mass. There is a small nonobstructing stone in the left kidney. VASCULATURE: Unremarkable. No aortic aneurysm. BOWEL: Unremarkable. No obstruction. No gross mural thickening. There is mild diverticulosis on the right side of the colon. APPENDIX: Unremarkable. Normal appendix. PERITONEUM: Unremarkable. No free fluid. No free air. LYMPH NODES: Unremarkable. No enlarged lymph nodes. BLADDER: Unremarkable. REPRODUCTIVE: Unremarkable. BONES: No acute fracture. OTHER FINDINGS: None. IMPRESSION: No acute intra-abdominal findings
== END 2017-02-05 12:50 | disposition home or self-care (01) ==
LOC: ED 09:46
DX: N12 Tubulo-interstitial nephritis, not specified as acute or chronic (principal); E11.9 Type 2 diabetes mellitus without complications; E03.9 Hypothyroidism, unspecified; I10 Essential (primary) hypertension
CPT/HCPCS: 74176; 80053; 81001; 85027; 87086; 96374; 99284; J1885

== ENCOUNTER 2017-02-25 21:10 | Observation (INO) | payer MEDICAID ==
[2017-02-25 21:11] VITALS: BMI 27.4
--- NOTE | 2017-02-25 21:59 | ED PDOC ---
Arrival/HPI - General Chief Complaint: Abdominal Pain Time Seen by Provider: 02/25/17 21:16 Historian: Patient - History of Present Illness Narrative History of Present Illness (Text): 02/25/17 21:57 Minerva Lemus is a 62 year old female, with a history of hypothyroidism, kidney stones, asthma, diabetes, and hypertension, presents to the emergency department complaining of 10 day duration of lower abdominal pain and dysuria. She was evaluated for these symptoms by PMD and was started on antibiotics. However states that symptoms have not improved after finishing antibiotics course and was advised by PMD to present to the emergency department for further evaluation. Denies fever, chills, chest pain, nausea, vomiting, diarrhea , or any other complaints at this time. Time/Duration: Other (days ) Symptom Onset: Gradual Symptom Course: Unchanged Severity Level: Mild Activities at Onset: Light Past Medical History - Provider Review Nursing Documentation Reviewed: Yes - Infectious Disease Hx of Infectious Diseases: None - Tetanus Immunization Tetanus Immunization: Unknown - Cardiac Hx Cardiac Disorders: Yes Hx Hypertension: Yes - Pulmonary Hx Respiratory Disorders: Yes Hx Asthma: Yes Hx Emphysema: Yes - Neurological Hx Neurological Disorder: No - HEENT Hx HEENT Disorder: Yes Other/Comment: left eye scraping 10/2016 - Renal Hx Renal Disorder: No Hx Kidney Stones: Yes (right) - Endocrine/Metabolic Hx Endocrine Disorders: Yes Hx Diabetes Mellitus Type 2: Yes Hx Hypothyroidism: Yes - Hematological/Oncological Hx Blood Disorders: No - Integumentary Hx Dermatological Disorder: No - Musculoskeletal/Rheumatological Hx Musculoskeletal Disorders: Yes Hx Arthritis: Yes Hx Osteoarthritis: Yes Hx Osteoporosis: Yes - Gastrointestinal Hx Gastrointestinal Disorders: No - Genitourinary/Gynecological Hx Genitourinary Disorders: No - Psychiatric Hx Psychophysiologic Disorder: Yes Hx Bipolar Disorder: No Hx Emotional Abuse: No Hx Hallucinations: No Hx Panic Disorder: No Hx Post Traumatic Stress Disorder: No Hx Psychosis: No Hx Physical Abuse: No Hx Schizophrenia: No Hx Sexual Abuse: No Hx Substance Use: No - Surgical History Hx Orthopedic Surgery: Yes (BACK 10yrs ago) Other/Comment: breast bx - Anesthesia Hx Anesthesia: Yes Hx Anesthesia Reactions: No Hx Malignant Hyperthermia: No - Suicidal Assessment Feels Threatened In Home Enviroment: No Family/Social History - Physician Review Nursing Documentation Reviewed: Yes Family/Social History: No Known Family HX Smoking Status: Never Smoked Hx Alcohol Use: No Hx Substance Use: No Hx Substance Use Treatment: No Allergies/Home Meds Allergies/Adverse Reactions: Allergies No Known Allergies Allergy (Verified 02/05/17 09:58) Home Medications: Home Meds Medication Instructions Recorded Confirmed Lisinopril [Zestril] 10 mg PO DAILY 04/17/16 02/26/17 MetFORMIN [glucoPHAGE] 500 mg PO BID 04/17/16 02/26/17 Simvastatin [Zocor] 20 mg PO DAILY 04/17/16 02/26/17 Review of Systems - Physician Review All systems were reviewed & negative as marked: Yes - Review of Systems Constitutional: Normal. absent: Fatigue, Fevers Respiratory: Normal. absent: SOB, Cough, Sputum Cardiovascular: Normal. absent: Chest Pain, Palpitations Gastrointestinal: Abdominal Pain. absent: Diarrhea, Nausea, Vomiting Genitourinary Female: Dysuria Neurological: Normal. absent: Headache, Dizziness Physical Exam Vital Signs Reviewed: Yes Vital Signs Temp Pulse Resp BP Pulse Ox 02/26/17 03:02 66 16 112/68 97 02/25/17 21:22 97.8 F 71 18 132/82 96 Temperature: Afebrile Blood Pressure: Normal Pulse: Regular Respiratory Rate: Normal Appearance: Positive for: Well-Appearing, Non-Toxic, Comfortable Pain Distress: None Mental Status: Positive for: Alert and Oriented X 3 - Systems Exam Head: Present: Atraumatic, Normocephalic Pupils: Present: PERRL Conjunctiva: Present: Normal Mouth: Present: Moist Mucous Membranes Respiratory/Chest: Present: Clear to Auscultation, Good Air Exchange. No: Respiratory Distress, Accessory Muscle Use Cardiovascular: Present: Regular Rate and Rhythm, Normal S1, S2. No: Murmurs Abdomen: Present: Tenderness, Normal Bowel Sounds. No: Distention, Peritoneal Signs, Rebound, Guarding Back: Present: Normal Inspection. No: CVA Tenderness, Midline Tenderness, Paraspinal Tenderness Upper Extremity: Present: Normal Inspection. No: Cyanosis, Edema Lower Extremity: Present: Normal Inspection. No: Edema Neurological: Present: GCS=15, CN II-XII Intact, Speech Normal, Motor Func Grossly Intact, Normal Sensory Function Skin: Present: Warm, Dry, Normal Color. No: Rashes Psychiatric: Present: Alert, Oriented x 3, Normal Insight, Normal Concentration Medical Decision Making ED Course and Treatment: 02/25/17 22:01 Impression: A 62 year old female who presents to the emergency department complaining of lower abdominal pain and dysuria for 10 days. Plan: -- CT abdomen pelvis -- EKG -- Labs, cardiac enzymes -- Blood culture -- Urine culture -- Urinalysis -- Reassess and disposition Progress Notes: 02/26/17 00:29 EKG reviewed by me: NSR @ 69 bpm. Nonspecific T wave abnormality. CT abdomen pelvis shows: Diverticulosis without definite CT evidence of diverticulitis. 02/26/17 02:25 Case discussed with who is aware and agrees with the plan to observe patient at [facility] for IV antibiotics. Accepts patient under medical service. - Lab Interpretations Lab Results: 02/25/17 10:03 02/25/17 22:18 Lab Results 02/25/17 22:18: Sodium 141, Potassium 4.1, Chloride 102, Carbon Dioxide 28, Anion Gap 15, BUN 30 H, Creatinine 1.0, Est GFR ( Amer) > 60, Est GFR ( Non-Af Amer) 56, Random Glucose 113 H, Calcium 9.1, Total Bilirubin 0.4, AST 38 , ALT 34, Alkaline Phosphatase 88, Lactate Dehydrogenase 468, Total Creatine Kinase 65, Troponin I < 0.01, Total Protein 7.3, Albumin 4.1, Globulin 3.1, Albumin/Globulin Ratio 1.3, Amylase 90, Lipase 129 02/25/17 22:00: Urine Color Yellow, Urine Appearance Clear, Urine pH 7.0, Ur Specific [place] <= 1.005, Urine Protein Negative, Urine Glucose (UA) Negative, Urine Ketones Negative, Urine Blood Trace-lysed H, Urine Nitrate Negative, Urine Bilirubin Negative, Urine Urobilinogen 0.2, Ur Leukocyte Esterase Moderate H, Urine RBC 1 - 3, Urine WBC 2 - 5, Ur Epithelial Cells 1 - 3 02/25/17 10:03: PT 10.4, INR 0.96, APTT 26.1 02/25/17 10:03: WBC 8.8, RBC 3.72, Hgb 11.1 L, Hct 33.0 L, MCV 88.7, MCH 29.8, MCHC 33.6, RDW 13.2, Plt Count 190, MPV 10.3, Gran % 55.1, Lymph % (Auto) 31.6, [place] % (Auto) 5.6, Eos % (Auto) 7.5 H, Baso % (Auto) 0.2, Gran # 4.86, Lymph # 2.8, [place] # 0.5, Eos # 0.7, Baso # 0.02 I have reviewed the lab results: Yes - RAD Interpretation Narrative RAD Interpretations (Text): EXAM: CT Abdomen and Pelvis Without Intravenous Contrast FINDINGS: Limitations: Lack of intravenous contrast. Lower thorax: No acute findings. ABDOMEN: Liver: Unremarkable. Gallbladder and bile ducts: No calcified stones. No ductal dilation. Pancreas: Unremarkable. No ductal dilation. Spleen: No splenomegaly. Adrenals: No mass. Kidneys and ureters: Small vascular calcification vs calculus within LEFT kidney. No hydronephrosis. Stomach and bowel: Few scattered diverticula within colon. No associated inflammatory stranding. No definite mural thickening. No obstruction. Appendix: Normal caliber. No inflammation. PELVIS: Bladder: Unremarkable. No stones. Reproductive: Unremarkable as visualized. ABDOMEN and PELVIS: Intraperitoneal space: No significant fluid collection. No free air. Bones/joints: Mild degenerative changes of spine. No acute fracture. Soft tissues: Tiny inguinal hernias containing fat. Vasculature: Mild atherosclerotic disease. No aneurysm. Lymph nodes: No pathologically enlarged lymph nodes. IMPRESSION: 1. Diverticulosis without definite CT evidence of diverticulitis. 2. Incidental/non-acute findings are described above. Radiology Orders: 02/25/17 21:40 ABD & PELVIS W/O PO OR IV CONT [CT] Stat Director News: Radiologist - Medication Orders Current Medication Orders: Acetaminophen (Tylenol 325mg Tab) 650 mg PO Q6H PRN PRN Reason: Fever >100.4 F Atorvastatin Calcium (Lipitor) 10 mg PO DIN BALDEMAR Docusate Sodium (Colace) 100 mg PO DAILY BALDEMAR Ceftriaxone Sodium (Rocephin 1 Gram Ivpb) 1 gm in 100 mls @ 100 mls/hr IVPB DAILY BALDEMAR PRN Reason: Protocol Lisinopril (Zestril) 10 mg PO DAILY BALDEMAR Metformin HCl (Glucophage) 500 mg PO BID BALDEMAR Pantoprazole Sodium (Protonix Inj) 40 mg IVP DAILY BALDEMAR Discontinued Medications Cefepime HCl (Maxipime 1gm) 1 gm in 100 mls @ 100 mls/hr IVPB STAT STA PRN Reason: Protocol Stop: 02/26/17 03:20 Last Admin: 02/26/17 02:38 Dose: 100 mls/hr Pneumococcal Polyvalent Vaccine (Pneumovax 23 Vaccine) 0.5 ml IM .ONCE ONE Stop: 02/26/17 05:11 - Scribe Statement The provider has reviewed the documentation as recorded by the Marcusibe Alda Leavitt Provider Attestation: Provider Scribe Attestation: All medical record entries made by the Scribe were at my direction and personally dictated by me. I have reviewed the chart and agree that the record accurately reflects my personal performance of the history, physical exam, medical decision making, and the department course for this patient. I have also personally directed, reviewed, and agree with the discharge instructions and disposition. Disposition/Present on Arrival - Present on Arrival Any Indicators Present on Arrival: No History of DVT/PE: No History of Uncontrolled Diabetes: No Urinary Catheter: No History of Decub. Ulcer: No History Surgical Site Infection Following: None - Disposition Have Diagnosis and Disposition been Completed?: Yes Diagnosis: Urinary tract infection Disposition: HOSPITALIZED Disposition Time: 02:25 Condition: FAIR
[2017-02-25 22:05] LABS: URINE BILIRUBIN NEGATIVE (NEGATIVE); URINE BLOOD TRACE-LYSED (NEGATIVE); URINE GLUCOSE (UA) NEGATIVE (NEGATIVE); URINE LEUKOCYTE ESTERASE MODERATE Leu/uL (NEGATIVE); URINE NITRATE NEGATIVE (NEGATIVE); URINE PROTEIN NEGATIVE mg/dL (<30 mg/dL); URINE UROBILINOGEN 0.2 E.U./dL (<1 E.U./dL)
[2017-02-25 22:22] LABS: URINE APPEARANCE CLEAR (CLEAR); URINE COLOR YELLOW (YELLOW)
[2017-02-25 22:31] LABS: BASO # 0.02 K/mm3 (0.0-2.0); BASO % 0.2 % (0.0-3.0); EOS # 0.7 (0.0-0.7); EOS % 7.5 % (1.5-5.0); GRAN # 4.86 (1.4-6.5); GRAN % 55.1 % (50.0-68.0); HEMOGLOBIN 11.1 gm/dL (12.0-16.0); LYMPH # 2.8 (1.2-3.4); LYMPH % 31.6 % (22.0-35.0); MEAN CELL VOLUME 88.7 fL (80.0-105.0); MEAN CORPUSCULAR HEMOGLOBIN 29.8 pg (25.0-35.0); MEAN CORPUSCULAR HGB CONC 33.6 g/dl (31.0-37.0); MEAN PLATELET VOLUME 10.3 fl (7.0-11.0); MONO # 0.5 (0.1-0.6); MONO % 5.6 % (1.0-6.0); PLATELET COUNT 190 10^3/uL (120.0-450.0); RBC 3.72 10^6/uL (3.5-6.1); RED CELL DISTRIBUTION WIDTH 13.2 % (11.5-14.5); WHITE BLOOD COUNT 8.8 10^3/ul (4.5-11.0)
[2017-02-25 22:38] LABS: INR 0.96 (0.93-1.08); PARTIAL THROMBOPLASTIN TIME 26.1 Seconds (23.7-30.8); PROTHROMBIN TIME 10.4 Seconds (9.9-11.8)
[2017-02-25 22:39] LABS: ALB/GLOB RATIO 1.3 (1.1-1.8); ALBUMIN 4.1 g/dL (3.0-4.8); ALT/SGPT 34 U/L (7-56); AMYLASE 90 U/L (35-125); AST/SGOT 38 U/L (15-39); BLOOD UREA NITROGEN 30 mg/dL (7-21); CALCIUM 9.1 mg/dL (8.4-10.5); GFR AFRICAN-AMERICAN > 60; GFR NON-AFRICAN AMERICAN 56; LIPASE 129 U/L (23-300)
[2017-02-25 22:49] LABS: TROPONIN I < 0.01 ng/mL
--- NOTE | 2017-02-26 00:17 | CT ---
EXAM: CT Abdomen and Pelvis Without Intravenous Contrast CLINICAL HISTORY: 62 years old, female; Pain; Abdominal pain; Additional info: Abd pain TECHNIQUE: Axial computed tomography images of the abdomen and pelvis without intravenous contrast. This CT exam was performed using one or more of the following dose reduction techniques: automated exposure control, adjustment of the mA and/or kV according to patient size, and/or use of iterative reconstruction technique. Coronal and sagittal reformatted images were created and reviewed. COMPARISON: CT - ABD PELVIS W/O PO OR IV CONT 02/05/2017 11:11:01 AM FINDINGS: Limitations: Lack of intravenous contrast. Lower thorax: No acute findings. ABDOMEN: Liver: Unremarkable. Gallbladder and bile ducts: No calcified stones. No ductal dilation. Pancreas: Unremarkable. No ductal dilation. Spleen: No splenomegaly. Adrenals: No mass. Kidneys and ureters: Small vascular calcification vs calculus within LEFT kidney. No hydronephrosis. Stomach and bowel: Few scattered diverticula within colon. No associated inflammatory stranding. No definite mural thickening. No obstruction. Appendix: Normal caliber. No inflammation. PELVIS: Bladder: Unremarkable. No stones. Reproductive: Unremarkable as visualized. ABDOMEN and PELVIS: Intraperitoneal space: No significant fluid collection. No free air. Bones/joints: Mild degenerative changes of spine. No acute fracture. Soft tissues: Tiny inguinal hernias containing fat. Vasculature: Mild atherosclerotic disease. No aneurysm. Lymph nodes: No pathologically enlarged lymph nodes. IMPRESSION: 1. Diverticulosis without definite CT evidence of diverticulitis. 2. Incidental/non-acute findings are described above.
[2017-02-26] MEDS ORDERED: Cefepime 1gm in NS 100ml 1 GM/100 ML BAG IVPB STA (02:21)
--- NOTE | 2017-02-26 04:51 | CP.PCM.HP ---
<GARRICK CARRANZA - Last Filed: 02/26/17 04:54> History of Present Illness - History of Present Illness History of Present Illness: CC: Abdominal Pain/Dysuria HPI: Mrs. Lemus is a 62 year old female, with a history of hypothyroidism, kidney stones, asthma, osteoporosis, diabetes, and hypertension, who presented to the ED complaining of a 10 day duration of lower abdominal pain and dysuria. She was evaluated for these symptoms by PMD on 02/20/2017 and was started on antibiotics. However she states that the symptoms did not improve after finishing the antibiotics course. She then went in to see her PMD yesterday () and was advised to go to the ED for further evaluation. She states that her abdominal pain usually coincides with her dysuria but that she is also having " a lot of gas". A CT abd/pelv showed diverticulosis with no diverticulitis. Currently, patient reports that passing flatulence has helped to relieve most of her abdominal pain. She also reports substernal chest pain radiating to her LUE that she describes as a "soreness". She states that this is also intermittent. Patient denies fever, chills, shortness of breath, palpitations, nausea, vomiting, diarrhea, or any other complaints at this time. PMH: Hypothryoidism, kidney stones, asthma, diabetes mellitus, HTN, and osteoporosis PSH: Back surgery Family Hx: Father and mother-DM Social Hx: Denies tobacco, alcohol, and illicit drug use Allergies: NKDA Home medications: Simvastatin, Lisinopril, Levothyroxine, and Metformin Present on Admission - Present on Admission Any Indicators Present on Admission: No Review of Systems - Review of Systems Review of Systems: Please refer to HPI Past Patient History - Infectious Disease Hx of Infectious Diseases: None - Tetanus Immunizations Tetanus Immunization: Unknown - Past Social History Smoking Status: Never Smoked - CARDIAC Hx Cardiac Disorders: Yes Hx Hypertension: Yes - PULMONARY Hx Respiratory Disorders: Yes Hx Asthma: Yes Hx Emphysema: Yes - NEUROLOGICAL Hx Neurological Disorder: No - HEENT Hx HEENT Problems: Yes Other/Comment: left eye scraping 10/2016 - RENAL Hx Chronic Kidney Disease: No Hx Kidney Stones: Yes (right) - ENDOCRINE/METABOLIC Hx Endocrine Disorders: Yes Hx Diabetes Mellitus Type 2: Yes Hx Hypothyroidism: Yes - HEMATOLOGICAL/ONCOLOGICAL Hx Blood Disorders: No - INTEGUMENTARY Hx Dermatological Problems: No - MUSCULOSKELETAL/RHEUMATOLOGICAL Hx Musculoskeletal Disorders: Yes Hx Arthritis: Yes Hx Osteoarthritis: Yes Hx Osteoporosis: Yes - GASTROINTESTINAL Hx Gastrointestinal Disorders: No - GENITOURINARY/GYNECOLOGICAL Hx Genitourinary Disorders: No - PSYCHIATRIC Hx Psychophysiologic Disorder: Yes Hx Bipolar Disorder: No Hx Emotional Abuse: No Hx Hallucinations: No Hx Panic Symptoms: No Hx Post Traumatic Stress Disorder: No Hx Psychosis: No Hx Physical Abuse: No Hx Schizophrenia: No Hx Sexual Abuse: No Hx Substance Use: No - SURGICAL HISTORY Hx Orthopedic Surgery: Yes (BACK 10yrs ago) Other/Comment: breast bx - ANESTHESIA Hx Anesthesia: Yes Hx Anesthesia Reactions: No Hx Malignant Hyperthermia: No Meds Allergies/Adverse Reactions: Allergies Allergy/AdvReac Type Severity Reaction Status Date / Time No Known Allergies Allergy Verified 02/05/17 09:58 Physical Exam - Constitutional Appears: No Acute Distress - Head Exam Head Exam: NORMAL INSPECTION, NORMOCEPHALIC - Eye Exam Eye Exam: EOMI, Normal appearance - ENT Exam ENT Exam: Mucous Membranes Moist, Normal Exam - Neck Exam Neck exam: Positive for: Full Rom. Negative for: Lymphadenopathy, Tenderness, Thyromegaly - Respiratory Exam Respiratory Exam: Chest Wall Tenderness, Clear to Auscultation Bilateral, NORMAL BREATHING PATTERN. absent: Rales, Rhonchi, Wheezes, Respiratory Distress - Cardiovascular Exam Cardiovascular Exam: REGULAR RHYTHM, RRR, +S1, +S2. absent: Tachycardia, Diastolic murmur, Systolic Murmur - GI/Abdominal Exam GI & Abdominal Exam: Normal Bowel Sounds, Tenderness. absent: Distended, Firm, Guarding, Hernia, Rigid - Exam Exam: absent: Bladder Distension - Extremities Exam Extremities exam: Positive for: normal capillary refill, pedal pulses present. Negative for: calf tenderness, pedal edema - Back Exam Back exam: absent: CVA tenderness (L), CVA tenderness (R) - Neurological Exam Neurological exam: Alert, Oriented x3 - Psychiatric Exam Psychiatric exam: Normal Affect, Normal Mood - Skin Skin Exam: Dry, Intact, Normal Color, Warm Results - Vital Signs Recent Vital Signs: Last Vital Signs Temp 97.8 F 02/25/17 21:22 Pulse 66 02/26/17 03:02 Resp 16 02/26/17 03:02 BP 112/68 02/26/17 03:02 Pulse Ox 97 02/26/17 03:02 - Labs Result Diagrams: 02/25/17 10:03 02/25/17 22:18 Assessment & Plan - Assessment and Plan (Free Text) Assessment: 62 year old female, with a history of hypothyroidism, kidney stones, asthma, osteoporosis, diabetes, and hypertension, who presented to the ED complaining of a 10 day duration of lower abdominal pain and dysuria with new onset chest pain since time of admission. Plan: 1. Dysuria -UA showed leukocyte esterase -afebrile, normotensive, non-tachy and WBC wnl -given cefepime in ED -later started on rocephin -urine and blood cultures pending -tylenol PRN for fevers 2. Chest Pain -EKG showed NSR -troponin negative x1; serial troponins pending -TSH, A1C pending -cardiology consulted, all recs appreciated 3. Diverticulosis -per CT report -colace 100mg daily 4. History of HTN -cont home lisinopril 5. History of Hypothyroidism -TSH pending -cont home synthroid based on TSH 6. History of HLD -hold home simvastatin -start lipitor 7. History of DM2 -cont home metformin -carb consistent diet 8. GI/DVT Prophylaxis -Protonix/scd's Patient seen and case discussed with attending, Dr. Ramirez. - Date & Time Date: 02/26/17 Time: 03:05 Decision To Admit - Pt Status Changed To: Hospital Disposition Of: Observation - . Bed Request Type: Med/Surg <Cheyenne Ramirez - Last Filed: 02/26/17 05:21> Results - Vital Signs Recent Vital Signs: Last Vital Signs Temp 97.7 F 02/26/17 05:02 Pulse 63 02/26/17 05:02 Resp 20 02/26/17 05:02 BP 113/71 02/26/17 05:02 Pulse Ox 97 02/26/17 03:02 - Labs Result Diagrams: 02/25/17 10:03 02/25/17 22:18 Attending/Attestation - Attestation I have personally seen and examined this patient.: Yes I have fully participated in the care of the patient.: Yes I have reviewed all pertinent clinical information: Yes Notes (Text): 02/26/17 05:20 Patient was seen when she was in CODE ROOM in the ER. Agree with history, physical examination, assessment and plan.
[2017-02-26] MEDS ORDERED: Pneumococcal 23-Valent Vaccine IM ONE (05:10)
[2017-02-26 07:22] LABS: BASO # 0.02 K/mm3 (0.0-2.0); BASO % 0.3 % (0.0-3.0); EOS # 0.8 (0.0-0.7); GRAN # 3.89 (1.4-6.5); GRAN % 55.3 % (50.0-68.0); HEMOGLOBIN 11.4 gm/dL (12.0-16.0); LYMPH % 28.7 % (22.0-35.0); MEAN CELL VOLUME 88.5 fL (80.0-105.0); MEAN CORPUSCULAR HEMOGLOBIN 29.1 pg (25.0-35.0); MEAN CORPUSCULAR HGB CONC 32.9 g/dl (31.0-37.0); MEAN PLATELET VOLUME 10.3 fl (7.0-11.0); MONO # 0.3 (0.1-0.6); MONO % 4.7 % (1.0-6.0); PLATELET COUNT 189 10^3/uL (120.0-450.0); RBC 3.92 10^6/uL (3.5-6.1); RED CELL DISTRIBUTION WIDTH 13.1 % (11.5-14.5)
[2017-02-26 08:29] LABS: ALB/GLOB RATIO 1.3 (1.1-1.8); ALT/SGPT 29 U/L (7-56); AST/SGOT 31 U/L (15-39); BLOOD UREA NITROGEN 27 mg/dL (7-21); CALCIUM 9.5 mg/dL (8.4-10.5); GFR AFRICAN-AMERICAN > 60; GFR NON-AFRICAN AMERICAN > 60
[2017-02-26] MEDS: cefTRIAXone 1 gm 1 GM/100 ML BAG IVPB SCH (09:02)
--- NOTE | 2017-02-26 09:16 | CARD ---
APPROVED REPORT EKG Measurement Heart [id number] <Conclusion> Normal sinus rhythm Nonspecific T wave abnormality
--- NOTE | 2017-02-27 03:37 | CON ---
DATE: HISTORY OF PRESENT ILLNESS: The patient is 62-year-old female who has been treated for urinary tract infection. Has a history of urinary tract infection, has a history of ureteric stone according to the family that passed out without any urological intervention and the patient was admitted because of dysuria and urinary tract infection. The patient did also report chest tightness radiating to the left shoulder and the left arm. The patient is hypertensive and diabetic, but denies any prior cardiac history. SOCIAL HISTORY: The patient is a nonsmoker. MEDICATIONS: Aspirin 81 mg once a day, Glucophage 500 mg twice a day, Lipitor 10 mg once a day, Protonix once a day, Rocephin 1 g once a day, Synthroid 75 mcg once a day, and Zestril 10 mg once a day. REVIEW OF SYSTEMS: No fever or chills. No vomiting or diarrhea. PHYSICAL EXAMINATION: GENERAL: The patient is middle-aged female who does not appear to be in any distress. VITAL SIGNS: Blood pressure 100/58, heart rate 54, temperature 98.2, respirations 19. HEENT: Normocephalic. HEART: S1 and S2 regular. CHEST: Clear. ABDOMEN: Soft. EXTREMITIES: No edema. LABORATORY DATA: Three sets of troponins are negative. SMA-7 is within normal limits, except for BUN 27. TSH level is below normal at 0.42. PT and PTT are within normal limits. Abdomen and pelvis CT scan revealed diverticulosis without definite CT evidence of diverticulitis. EKG revealed normal sinus rhythm with nonspecific T wave changes. ASSESSMENT: 1. Chest pain, myocardial infarction ruled out. 2. Recurrent urinary tract infection. 3. Hypertension and diabetes mellitus. 4. Hypothyroidism. CONDITION: Continue aspirin 81 mg once a day, Lipitor 10 mg once a day, Synthroid 75 mcg once daily, Zestril 10 mg once a day. Start Lovenox at 30 mg once a day. The case was discussed with Dr. Rubio and cardiac catheterization will be considered on elective basis as per adequate treatment of the urinary tract infection given the multiple coronary artery disease risk factors. Francisco Lund MD
[2017-02-27] MEDS: Pantoprazole 40 mg EC Tab PO SCH (05:45)
[2017-02-27] MEDS: Levothyroxine 75 MCG TAB PO SCH (05:45)
[2017-02-27 07:09] LABS: BASO # 0.02 K/mm3 (0.0-2.0); BASO % 0.3 % (0.0-3.0); EOS # 0.8 (0.0-0.7); EOS % 11.8 % (1.5-5.0); GRAN # 3.72 (1.4-6.5); HEMOGLOBIN 11.7 gm/dL (12.0-16.0); LYMPH # 1.7 (1.2-3.4); MEAN CORPUSCULAR HEMOGLOBIN 29.2 pg (25.0-35.0); MEAN CORPUSCULAR HGB CONC 33.1 g/dl (31.0-37.0); MEAN PLATELET VOLUME 10.1 fl (7.0-11.0); MONO # 0.3 (0.1-0.6); MONO % 4.9 % (1.0-6.0); PLATELET COUNT 177 10^3/uL (120.0-450.0); RBC 4.01 10^6/uL (3.5-6.1); RED CELL DISTRIBUTION WIDTH 13.1 % (11.5-14.5); WHITE BLOOD COUNT 6.5 10^3/ul (4.5-11.0)
[2017-02-27 07:21] LABS: HDL CHOLESTEROL 37 mg/dL (29-60)
[2017-02-27 07:29] LABS: ALB/GLOB RATIO 1.4 (1.1-1.8); ALBUMIN 4.1 g/dL (3.0-4.8); ALT/SGPT 27 U/L (7-56); AST/SGOT 25 U/L (15-39); BLOOD UREA NITROGEN 23 mg/dL (7-21); CALCIUM 9.7 mg/dL (8.4-10.5); GFR AFRICAN-AMERICAN > 60; GFR NON-AFRICAN AMERICAN > 60
[2017-02-27 07:32] LABS: LDL CHOLESTEROL 51 mg/dL (0-129)
[2017-02-27] MEDS: cefTRIAXone 1 gm 1 GM/100 ML BAG IVPB SCH (09:23)
--- NOTE | 2017-02-27 13:44 | PN ---
SUBJECTIVE: The patient is still experiencing chest pain on and off. PHYSICAL EXAMINATION: VITAL SIGNS: Blood pressure 102/66, heart rate 56, temperature 98.9, respirations 20. HEENT: Normocephalic. HEART: S1 and S2 regular. EXTREMITIES: No edema. LABORATORY DATA: Hemoglobin and hematocrit 11.7 and 35.3. White count and platelet count are within normal limit. SMA-7 is within normal limits, except for glucose of 111 and BUN of 23. Lipid profile is within normal limit except for triglycerides of 190. ASSESSMENT: 1. Chest pain, myocardial infarction ruled out. 2. Hypertension and diabetes mellitus. 3. Hypothyroidism. CONDITIONS: Continue current aspirin, Lipitor, Synthroid and Zestril. Cardiac catheterization was discussed with the patient via account support analyst who happened to be the nurse on the floor. Initially, the patient agreed for the procedure; however, when the daughter arrived she declined her mother to have the procedure. Case will be discussed with Dr. Rubio. Francisco Lund MD
--- NOTE | 2017-02-27 14:49 | CP.PCM.PN ---
<Ester Mcclain - Last Filed: 02/27/17 15:01> Subjective - Date & Time of Evaluation Date of Evaluation: 02/27/17 Time of Evaluation: 07:15 - Subjective Subjective: Patient seen and examined at bedside. Per nursing no acute events overnight. Patient is laying in bed, reports chest pain has resolved. Only c/o mild lower abdominal pain and dysuria. Ambulating and tolerating diet. No other complaints at this time. Denies headache, dizziness, CP, palpitations, SOB, changes in bowel habits. Objective - Vital Signs/Intake and Output Vital Signs (last 24 hours): Temp Pulse Resp BP Pulse Ox 98.9 F 160 H 20 102/66 98 02/27/17 08:09 02/27/17 09:24 02/27/17 08:09 02/27/17 09:24 02/27/17 08:09 Intake and Output: 02/27/17 02/27/17 06:59 18:59 Intake Total 300 Balance 300 - Medications Medications: Current Medications Acetaminophen (Tylenol 325mg Tab) 650 mg PO Q6H PRN PRN Reason: Fever >100.4 F Aspirin (Ecotrin) 81 mg PO DAILY [facility] Last Admin: 02/27/17 09:22 Dose: 81 mg Atorvastatin Calcium (Lipitor) 10 mg PO DIN [facility] Last Admin: 02/26/17 18:56 Dose: 10 mg Docusate Sodium (Colace) 100 mg PO DAILY [facility] Last Admin: 02/27/17 09:22 Dose: 100 mg Ceftriaxone Sodium (Rocephin 1 Gram Ivpb) 1 gm in 100 mls @ 100 mls/hr IVPB DAILY [facility] PRN Reason: Protocol Last Admin: 02/27/17 09:23 Dose: 100 mls/hr Levothyroxine Sodium (Synthroid) 75 mcg PO 0600 [facility] Last Admin: 02/27/17 05:45 Dose: 75 mcg Lisinopril (Zestril) 2.5 mg PO DAILY [facility] Metformin HCl (Glucophage) 500 mg PO BID [facility] Last Admin: 02/26/17 18:55 Dose: Not Given Pantoprazole Sodium (Protonix Ec Tab) 40 mg PO 0600 [facility] Last Admin: 02/27/17 05:45 Dose: 40 mg - Labs Labs: 02/27/17 06:30 02/27/17 06:30 PT 10.4 Seconds (9.9-11.8) 02/25/17 10:03 INR 0.96 (0.93-1.08) 02/25/17 10:03 APTT 26.1 Seconds (23.7-30.8) 02/25/17 10:03 - Constitutional Appears: Well, Non-toxic, No Acute Distress - Head Exam Head Exam: ATRAUMATIC, NORMAL INSPECTION - Eye Exam Eye Exam: EOMI, Normal appearance Pupil Exam: NORMAL ACCOMODATION - ENT Exam ENT Exam: Mucous Membranes Moist - Neck Exam Neck Exam: Full ROM, Normal Inspection - Respiratory Exam Respiratory Exam: Clear to Ausculation Bilateral, NORMAL BREATHING PATTERN. absent: Rales, Rhonchi, Wheezes - Cardiovascular Exam Cardiovascular Exam: REGULAR RHYTHM, +S1, +S2. absent: Murmur - GI/Abdominal Exam GI & Abdominal Exam: Soft, Normal Bowel Sounds. absent: Guarding, Rigid, Tenderness - Extremities Exam Extremities Exam: Full ROM, Normal Capillary Refill, Normal Inspection - Back Exam Back Exam: NORMAL INSPECTION - Neurological Exam Neurological Exam: Alert, Awake, Oriented x3 - Psychiatric Exam Psychiatric exam: Normal Affect, Normal Mood - Skin Skin Exam: Dry, Normal Color, Warm Assessment and Plan - Assessment and Plan (Free Text) Assessment: 62 year old female, with a history of hypothyroidism, kidney stones, asthma, osteoporosis, diabetes, and hypertension, who presented to the ED complaining of a 10 day duration of lower abdominal pain and dysuria with new onset chest pain since time of admission. Plan: Plan: 1. Dysuria -UA on admission showed leukocyte esterase -Urine cx from 02/25 grew gram negative rods <10,000 -Will f/u urine cx sensitivities -Continue Rocephin 1gm daily (day 2) -s/p cefepime given in ED -Blood cx show no growth x 2 -Will repeat UA and Urine cx today 2. Chest Pain, r/o ACS -EKG showed NSR, troponin negative x 3 -Continue ASA -Cardiology consulted, all recs appreciated -Given risk factors, patient is scheduled for cardiac catheterization tomorrow 3. Diverticulosis -Colonoscopy scheduled as outpatient 4. History of HTN - Lisinopril decreased to 2.5mg daily - BPs stable - Continue to monitor 5. History of Hypothyroidism -TSH 0.42 -cont Synthroid 75mcg daily 6. History of HLD -held home med simvastatin -Continue Lipitor -Elevated TGs on Lipid panel - 190 7. History of DM2 -Holding metformin, patient for cardiac cath tomorrow -Carb consistent diet -HgA1c 6.8 8. GI/DVT Prophylaxis -Protonix/scd's <Cori Rubio - Last Filed: 02/27/17 15:26> Objective - Vital Signs/Intake and Output Vital Signs (last 24 hours): Temp Pulse Resp BP Pulse Ox 98.9 F 160 H 20 102/66 98 02/27/17 08:09 02/27/17 09:24 02/27/17 08:09 02/27/17 09:24 02/27/17 08:09 Intake and Output: 02/27/17 02/27/17 06:59 18:59 Intake Total 300 Balance 300 - Medications Medications: Current Medications Acetaminophen (Tylenol 325mg Tab) 650 mg PO Q6H PRN PRN Reason: Fever >100.4 F Aspirin (Ecotrin) 81 mg PO DAILY [facility] Last Admin: 02/27/17 09:22 Dose: 81 mg Atorvastatin Calcium (Lipitor) 10 mg PO DIN [facility] Last Admin: 02/26/17 18:56 Dose: 10 mg Docusate Sodium (Colace) 100 mg PO DAILY [facility] Last Admin: 02/27/17 09:22 Dose: 100 mg Ceftriaxone Sodium (Rocephin 1 Gram Ivpb) 1 gm in 100 mls @ 100 mls/hr IVPB DAILY [facility] PRN Reason: Protocol Last Admin: 02/27/17 09:23 Dose: 100 mls/hr Insulin Human Lispro (Humalog Low) 0 units SC ACHS [facility] PRN Reason: Protocol Levothyroxine Sodium (Synthroid) 75 mcg PO 0600 [facility] Last Admin: 02/27/17 05:45 Dose: 75 mcg Lisinopril (Zestril) 2.5 mg PO DAILY [facility] Metformin HCl (Glucophage) 500 mg PO BID [facility] Last Admin: 02/26/17 18:55 Dose: Not Given Pantoprazole Sodium (Protonix Ec Tab) 40 mg PO 0600 [facility] Last Admin: 02/27/17 05:45 Dose: 40 mg - Labs Labs: 02/27/17 06:30 02/27/17 06:30 PT 10.4 Seconds (9.9-11.8) 02/25/17 10:03 INR 0.96 (0.93-1.08) 02/25/17 10:03 APTT 26.1 Seconds (23.7-30.8) 02/25/17 10:03 Attending/Attestation - Attestation I have personally seen and examined this patient.: Yes I have fully participated in the care of the patient.: Yes I have reviewed all pertinent clinical information, including history, physical exam and plan: Yes Notes (Text): 02/27/17 15:20 62 year old female with past medical history of hypothyroidism, diabetes, hypertension and recent UTI presented with complaint of chest pain and dysuria. Found to have recurrent UTI and started on iv antibiotics. Ucx is growing gram negative rods. Serial cardiac enzymes have been negative. She is on aspirin, statin and lisinopril. Cardiology is following the patient and plans for cardiac cath tomorrow given her risk factors. She is on insulin ss for diabetes. Metformin is currently on hold. She is on synthroid for history of hypothyroidism. CT abd/pelvis showed diverticulosis. She states she is scheduled for colonoscopy as outpatient. Cori Rubio MD Hospitalist.
[2017-02-27] MEDS: Insulin Lispro (humaLOG) LOW Coverage SC SCH ×2 (17:14→21:03)
[2017-02-28] MEDS: Pantoprazole 40 mg EC Tab PO SCH (06:44)
[2017-02-28] MEDS: Levothyroxine 75 MCG TAB PO SCH (06:44)
[2017-02-28] MEDS: Insulin Lispro (humaLOG) LOW Coverage SC SCH ×2 (08:16→16:13)
[2017-02-28 08:37] LABS: URINE BILIRUBIN NEGATIVE (NEGATIVE); URINE BLOOD NEGATIVE (NEGATIVE); URINE GLUCOSE (UA) NEGATIVE (NEGATIVE); URINE LEUKOCYTE ESTERASE NEGATIVE Leu/uL (NEGATIVE); URINE NITRATE NEGATIVE (NEGATIVE); URINE PROTEIN NEGATIVE mg/dL (<30 mg/dL); URINE UROBILINOGEN 0.2 E.U./dL (<1 E.U./dL)
[2017-02-28 08:38] LABS: URINE APPEARANCE CLEAR (CLEAR); URINE COLOR YELLOW (YELLOW)
[2017-02-28 09:04] LABS: BASO # 0.02 K/mm3 (0.0-2.0); BASO % 0.3 % (0.0-3.0); EOS # 0.6 (0.0-0.7); EOS % 10.5 % (1.5-5.0); GRAN % 55.9 % (50.0-68.0); HEMOGLOBIN 12.1 gm/dL (12.0-16.0); LYMPH # 1.7 (1.2-3.4); LYMPH % 28.2 % (22.0-35.0); MEAN CELL VOLUME 87.7 fL (80.0-105.0); MEAN CORPUSCULAR HEMOGLOBIN 29.1 pg (25.0-35.0); MEAN CORPUSCULAR HGB CONC 33.2 g/dl (31.0-37.0); MONO # 0.3 (0.1-0.6); MONO % 5.1 % (1.0-6.0); PLATELET COUNT 187 10^3/uL (120.0-450.0); RBC 4.16 10^6/uL (3.5-6.1); RED CELL DISTRIBUTION WIDTH 12.9 % (11.5-14.5); WHITE BLOOD COUNT 6.1 10^3/ul (4.5-11.0)
[2017-02-28 09:15] LABS: ALB/GLOB RATIO 1.5 (1.1-1.8); ALBUMIN 4.3 g/dL (3.0-4.8); ALT/SGPT 30 U/L (7-56); AST/SGOT 27 U/L (15-39); BLOOD UREA NITROGEN 22 mg/dL (7-21); CALCIUM 9.8 mg/dL (8.4-10.5); GFR AFRICAN-AMERICAN > 60; GFR NON-AFRICAN AMERICAN 56
[2017-02-28] MEDS: cefTRIAXone 1 gm 1 GM/100 ML BAG IVPB SCH (09:28)
[2017-02-28 11:11] VITALS: O2SAT 98
[2017-02-28] MEDS ORDERED: Lidocaine 2% Inj (20ml) ONE (11:33)
[2017-02-28] MEDS ORDERED: Midazolam 2 MG/2 ML VIAL ONE (12:45)
[2017-02-28] MEDS ORDERED: Iohexol 350 MG/100 ML VIAL ONE (13:09)
[2017-02-28 19:07] VITALS: RESP 18; TEMP 98.2
[2017-02-28 19:08] VITALS: BP 115/76; PULSE 77
--- NOTE | 2017-02-28 19:54 | CP.PCM.DIS ---
<Ester Mcclain - Last Filed: 02/28/17 21:11> Provider - Provider Date of Admission: 02/27/17 17:51 Attending physician: Cori Rubio MD Primary care physician: Colleen Dang MD Consults: Cardiology: Dr Hoyos Time Spent in preparation of Discharge (in minutes): 33 Hospital Course - Lab Results Lab Results: Most Recent Lab Values WBC 6.1 10^3/ul (4.5-11.0) 02/28/17 08:30 RBC 4.16 10^6/uL (3.5-6.1) 02/28/17 08:30 Hgb 12.1 gm/dL (12.0-16.0) 02/28/17 08:30 Hct 36.5 % (36.0-48.0) 02/28/17 08:30 MCV 87.7 fL (80.0-105.0) 02/28/17 08:30 MCH 29.1 pg (25.0-35.0) 02/28/17 08:30 MCHC 33.2 g/dl (31.0-37.0) 02/28/17 08:30 RDW 12.9 % (11.5-14.5) 02/28/17 08:30 Plt Count 187 10^3/uL (120.0-450.0) 02/28/17 08:30 MPV 10.0 fl (7.0-11.0) 02/28/17 08:30 Gran % 55.9 % (50.0-68.0) 02/28/17 08:30 Lymph % (Auto) 28.2 % (22.0-35.0) 02/28/17 08:30 [place] % (Auto) 5.1 % (1.0-6.0) 02/28/17 08:30 Eos % (Auto) 10.5 % (1.5-5.0) H 02/28/17 08:30 Baso % (Auto) 0.3 % (0.0-3.0) 02/28/17 08:30 Gran # 3.40 (1.4-6.5) 02/28/17 08:30 Lymph # 1.7 (1.2-3.4) 02/28/17 08:30 [place] # 0.3 (0.1-0.6) 02/28/17 08:30 Eos # 0.6 (0.0-0.7) 02/28/17 08:30 Baso # 0.02 K/mm3 (0.0-2.0) 02/28/17 08:30 PT 10.4 Seconds (9.9-11.8) 02/25/17 10:03 INR 0.96 (0.93-1.08) 02/25/17 10:03 APTT 26.1 Seconds (23.7-30.8) 02/25/17 10:03 Sodium 142 mmol/L (132-148) 02/28/17 08:30 Potassium 4.7 mmol/L (3.6-5.0) 02/28/17 08:30 Chloride 105 mmol/L (98-107) 02/28/17 08:30 Carbon Dioxide 27 mmol/L (21-33) 02/28/17 08:30 Anion Gap 15 (10-20) 02/28/17 08:30 BUN 22 mg/dL (7-21) H 02/28/17 08:30 Creatinine 1.0 mg/dL (0.5-1.4) 02/28/17 08:30 Est GFR ( Amer) > 60 02/28/17 08:30 Est GFR (Non-Af Amer) 56 02/28/17 08:30 POC Glucose (mg/dL) 89 mg/dL (65-110) 02/28/17 11:19 Random Glucose 111 mg/dL (70-110) H 02/28/17 08:30 Hemoglobin A1c 6.8 % (4.2-6.5) H 02/26/17 07:30 Calcium 9.8 mg/dL (8.4-10.5) 02/28/17 08:30 Total Bilirubin 0.7 mg/dL (0.2-1.3) 02/28/17 08:30 AST 27 U/L (15-39) 02/28/17 08:30 ALT 30 U/L (7-56) 02/28/17 08:30 Alkaline Phosphatase 88 U/L (38-133) 02/28/17 08:30 Lactate Dehydrogenase 468 U/L (333-699) 02/25/17 22:18 Total Creatine Kinase 65 U/L (35-230) 02/25/17 22:18 Troponin I < 0.01 ng/mL 02/26/17 11:00 Total Protein 7.1 g/dL (5.8-8.3) 02/28/17 08:30 Albumin 4.3 g/dL (3.0-4.8) 02/28/17 08:30 Globulin 2.8 gm/dL 02/28/17 08:30 Albumin/Globulin Ratio 1.5 (1.1-1.8) 02/28/17 08:30 Triglycerides 190 mg/dL (35-160) H 02/27/17 06:30 Cholesterol 147 mg/dL (130-200) 02/27/17 06:30 LDL Cholesterol Direct 51 mg/dL (0-129) 02/27/17 06:30 HDL Cholesterol 37 mg/dL (29-60) 02/27/17 06:30 Amylase 90 U/L (35-125) 02/25/17 22:18 Lipase 129 U/L (23-300) 02/25/17 22:18 TSH 3rd Generation 0.42 mIU/mL (0.46-4.68) L 02/26/17 07:30 Urine Color Yellow (YELLOW) 02/28/17 08:00 Urine Appearance Clear (CLEAR) 02/28/17 08:00 Urine pH 6.0 (4.7-8.0) 02/28/17 08:00 Ur Specific [place] 1.020 (1.005-1.035) 02/28/17 08:00 Urine Protein Negative mg/dL (<30 mg/dL) 02/28/17 08:00 Urine Glucose (UA) Negative mg/dL (NEGATIVE) 02/28/17 08:00 Urine Ketones Negative mg/dL (NEGATIVE) 02/28/17 08:00 Urine Blood Negative (NEGATIVE) 02/28/17 08:00 Urine Nitrate Negative (NEGATIVE) 02/28/17 08:00 Urine Bilirubin Negative (NEGATIVE) 02/28/17 08:00 Urine Urobilinogen 0.2 E.U./dL (<1 E.U./dL) 02/28/17 08:00 Ur Leukocyte Esterase Negative [place]/uL (NEGATIVE) 02/28/17 08:00 Urine RBC 1 - 3 /hpf (0-2) 02/25/17 22:00 Urine WBC 2 - 5 /hpf (0-6) 02/25/17 22:00 Ur Epithelial Cells 1 - 3 /hpf (0-5) 02/25/17 22:00 - Hospital Course Hospital Course: 62 year old female, with a history of hypothyroidism, kidney stones, asthma, osteoporosis, diabetes, and hypertension, who presented to the ED complaining of a 10 day duration of lower abdominal pain and dysuria. She was evaluated for these symptoms by PMD on 02/20/2017 and was started on antibiotics. However she states that the symptoms did not improve after finishing the antibiotics course. She then went in to see her PMD yesterday (02/25) and was advised to go to the ED for further evaluation. She states that her abdominal pain usually coincides with her dysuria but that she is also having "a lot of gas". A CT abd/ pelv showed diverticulosis with no diverticulitis. Patient was given Cipro PO for outpatient treatment on UTI. Patient reports that she finished the course of antibiotics, however continued to have symptoms. Urinalysis and urine cx were collected on day of admission. Patient was started on Rocephin. Urine cx from 02/25 grew gram negative rods. Urinalysis on 02/27 was negative, repeat urine cx are still pending. During this stay, patient was complaining of chest pain. Cardiology was consulted and on the case. Patient was monitored on telemetry, troponins negative x 3. EKG showed no changes. TSH was low, patient was started on home dose of Synthroid. Patient was taken for cardiac cath considering her risk factors and family history. Metformin was held and patient was started on ISS. Per cardio, no acute findings on cath, patient tolerated the procedure well. During admission, blood cx grew coag negative staph x 1, second blood cx showed no growth. Positive blood cx likely 2/2 contaminant. Patient was stable prior to discharge. Prescription for Keflex 500mg BID x 10 days was given to the patient. Patient instructed to continue the antibiotics and to follow up with PMD and cardiology within 1 week. Patient instructed to resume Metformin after 48-72 hours. All questions and concerns were addressed. Discharge Exam - Head Exam Head Exam: ATRAUMATIC, NORMAL INSPECTION - Eye Exam Eye Exam: EOMI, Normal appearance Pupil Exam: NORMAL ACCOMODATION, PERRL - ENT Exam ENT Exam: Mucous Membranes Moist - Neck Exam Neck exam: Full Rom - Respiratory Exam Respiratory Exam: Clear to PA & Lateral, NORMAL BREATHING PATTERN. absent: Rales, Rhonchi, Wheezes - Cardiovascular Exam Cardiovascular Exam: REGULAR RHYTHM, +S1, +S2. absent: Tachycardia - GI/Abdominal Exam GI & Abdominal Exam: Normal Bowel Sounds, Soft, Tenderness. absent: Distended, Rebound, Rigid Additional comments: Mild suprapubic tenderness - Extremities Exam Extremities exam: normal inspection, pedal pulses present - Back Exam Back exam: NORMAL INSPECTION - Neurological Exam Neurological exam: Alert, CN II-XII Intact, Oriented x3 - Psychiatric Exam Psychiatric exam: Normal Affect, Normal Mood - Skin Skin Exam: Normal Color, Warm Discharge Plan - Discharge Medications Prescriptions: Cephalexin [Keflex] 500 mg PO BID 10 Days - Follow Up Plan Condition: FAIR Disposition: HOME/ ROUTINE Instructions: Angina (DC), Left Heart Catheterization (DC), Diverticulosis (GEN ), Urinary Tract Infection in Women (DC), Heart Healthy Diet (DC), Meal Planning with Diabetes Exchanges (DC) Additional Instructions: Continue Keflex 500mg BID x 10 days, Ok to resume Metformin after 48-72 hours, f /u with Cardiology and PMD within 1 week Referrals: Colleen Dang MD [Primary Care Provider] - <Croi Rubio - Last Filed: 02/28/17 22:34> Provider - Provider Date of Admission: 02/27/17 17:51 Attending physician: Cori Rubio MD Primary care physician: Colleen Dang MD Hospital Course - Lab Results Lab Results: Most Recent Lab Values WBC 6.1 10^3/ul (4.5-11.0) 02/28/17 08:30 RBC 4.16 10^6/uL (3.5-6.1) 02/28/17 08:30 Hgb 12.1 gm/dL (12.0-16.0) 02/28/17 08:30 Hct 36.5 % (36.0-48.0) 02/28/17 08:30 MCV 87.7 fL (80.0-105.0) 02/28/17 08:30 MCH 29.1 pg (25.0-35.0) 02/28/17 08:30 MCHC 33.2 g/dl (31.0-37.0) 02/28/17 08:30 RDW 12.9 % (11.5-14.5) 02/28/17 08:30 Plt Count 187 10^3/uL (120.0-450.0) 02/28/17 08:30 MPV 10.0 fl (7.0-11.0) 02/28/17 08:30 Gran % 55.9 % (50.0-68.0) 02/28/17 08:30 Lymph % (Auto) 28.2 % (22.0-35.0) 02/28/17 08:30 [place] % (Auto) 5.1 % (1.0-6.0) 02/28/17 08:30 Eos % (Auto) 10.5 % (1.5-5.0) H 02/28/17 08:30 Baso % (Auto) 0.3 % (0.0-3.0) 02/28/17 08:30 Gran # 3.40 (1.4-6.5) 02/28/17 08:30 Lymph # 1.7 (1.2-3.4) 02/28/17 08:30 [place] # 0.3 (0.1-0.6) 02/28/17 08:30 Eos # 0.6 (0.0-0.7) 02/28/17 08:30 Baso # 0.02 K/mm3 (0.0-2.0) 02/28/17 08:30 PT 10.4 Seconds (9.9-11.8) 02/25/17 10:03 INR 0.96 (0.93-1.08) 02/25/17 10:03 APTT 26.1 Seconds (23.7-30.8) 02/25/17 10:03 Sodium 142 mmol/L (132-148) 02/28/17 08:30 Potassium 4.7 mmol/L (3.6-5.0) 02/28/17 08:30 Chloride 105 mmol/L (98-107) 02/28/17 08:30 Carbon Dioxide 27 mmol/L (21-33) 02/28/17 08:30 Anion Gap 15 (10-20) 02/28/17 08:30 BUN 22 mg/dL (7-21) H 02/28/17 08:30 Creatinine 1.0 mg/dL (0.5-1.4) 02/28/17 08:30 Est GFR ( Amer) > 60 02/28/17 08:30 Est GFR (Non-Af Amer) 56 02/28/17 08:30 POC Glucose (mg/dL) 91 mg/dL (65-110) 02/28/17 16:03 Random Glucose 111 mg/dL (70-110) H 02/28/17 08:30 Hemoglobin A1c 6.8 % (4.2-6.5) H 02/26/17 07:30 Calcium 9.8 mg/dL (8.4-10.5) 02/28/17 08:30 Total Bilirubin 0.7 mg/dL (0.2-1.3) 02/28/17 08:30 AST 27 U/L (15-39) 02/28/17 08:30 ALT 30 U/L (7-56) 02/28/17 08:30 Alkaline Phosphatase 88 U/L (38-133) 02/28/17 08:30 Lactate Dehydrogenase 468 U/L (333-699) 02/25/17 22:18 Total Creatine Kinase 65 U/L (35-230) 02/25/17 22:18 Troponin I < 0.01 ng/mL 02/26/17 11:00 Total Protein 7.1 g/dL (5.8-8.3) 02/28/17 08:30 Albumin 4.3 g/dL (3.0-4.8) 02/28/17 08:30 Globulin 2.8 gm/dL 02/28/17 08:30 Albumin/Globulin Ratio 1.5 (1.1-1.8) 02/28/17 08:30 Triglycerides 190 mg/dL (35-160) H 02/27/17 06:30 Cholesterol 147 mg/dL (130-200) 02/27/17 06:30 LDL Cholesterol Direct 51 mg/dL (0-129) 02/27/17 06:30 HDL Cholesterol 37 mg/dL (29-60) 02/27/17 06:30 Amylase 90 U/L (35-125) 02/25/17 22:18 Lipase 129 U/L (23-300) 02/25/17 22:18 TSH 3rd Generation 0.42 mIU/mL (0.46-4.68) L 02/26/17 07:30 Urine Color Yellow (YELLOW) 02/28/17 08:00 Urine Appearance Clear (CLEAR) 02/28/17 08:00 Urine pH 6.0 (4.7-8.0) 02/28/17 08:00 Ur Specific [place] 1.020 (1.005-1.035) 02/28/17 08:00 Urine Protein Negative mg/dL (<30 mg/dL) 02/28/17 08:00 Urine Glucose (UA) Negative mg/dL (NEGATIVE) 02/28/17 08:00 Urine Ketones Negative mg/dL (NEGATIVE) 02/28/17 08:00 Urine Blood Negative (NEGATIVE) 02/28/17 08:00 Urine Nitrate Negative (NEGATIVE) 02/28/17 08:00 Urine Bilirubin Negative (NEGATIVE) 02/28/17 08:00 Urine Urobilinogen 0.2 E.U./dL (<1 E.U./dL) 02/28/17 08:00 Ur Leukocyte Esterase Negative [place]/uL (NEGATIVE) 02/28/17 08:00 Urine RBC 1 - 3 /hpf (0-2) 02/25/17 22:00 Urine WBC 2 - 5 /hpf (0-6) 02/25/17 22:00 Ur Epithelial Cells 1 - 3 /hpf (0-5) 02/25/17 22:00 Attending/Attestation - Attestation I have personally seen and examined this patient.: Yes I have fully participated in the care of the patient.: Yes I have reviewed all pertinent clinical information, including history, physical exam and plan: Yes Notes (Text): 02/28/17 22:29 62 year old female with past medical history of hypothyroidism, diabetes, hypertension and recent UTI who presented with complaint of chest pain and dysuria. Found to have recurrent UTI and started on iv antibiotics with improvement of symptoms. Ucx grew E coli. Serial cardiac enzymes were negative. She is on aspirin, statin and lisinopril. She was seen by cardiology and underwent cardiac cath due to her risk factors. No acute findings were found per cardiology and she was cleared for discharge. Patient is discharged home on po keflex x 5 days. Follow up with pmd. Resume metformin in 2-3 days. Cori Rubio MD Hospitalist.
--- NOTE | 2017-03-01 01:02 | CARDCATH ---
LEFT HEART CATHETERIZATION INDICATIONS: The patient is a 62-year-old female who has a history of hypertension, diabetes mellitus, presented because of urinary tract infection as well as typical chest pain radiating to left arm. Cardiac catheterization was recommended. The procedure and its risks were explained to the patient, and thus was admitted for the procedure. PROCEDURES: Left to right coronary angiography was performed with 6-[place] JL4 and JR4 diagnostic catheters. Left ventriculogram and aortogram were performed through the 6-[place] pigtail catheter. The patient tolerated the procedures well without any complications. ANGIOGRAPHIC FINDINGS: Selective injection of the left coronary artery revealed the left main to be a normal vessel. The left main trifurcated into a small-caliber tortuous LAD, a medium-sized circumflex, and a small ramus branch. The entire left coronary artery circulation was angiographically unremarkable. Selective injection of the right coronary artery revealed small-caliber vessel that was angiographically unremarkable. Left ventriculogram performed in the RAMAN projection revealed normal wall motion, ejection fraction estimated at 55%. Aortography performed in the [place] projection revealed mildly dilated aortic root and arch. There was no aortic insufficiency or dissection. CONCLUSION: Unremarkable coronary circulation and normal left ventricular systolic function. RECOMMENDATIONS: Continue current medications. The patient may possibly have a microvascular disease causing her angina and I will start Cardizem at 30 mg t.i.d. Francisco Lund MD
--- NOTE | 2017-03-01 02:52 | CARDCATH ---
PROCEDURE DATE: 02/28/2017 The patient is a 62-year-old female with history of hypertension, diabetes mellitus, presented because of both typical chest pain as well as urinary tract infection. The patient continues to have recurrent chest pain while on telemetry unit. Cardiac catheterization was recommended. The procedure and its risks were explained to the patient who understood and agreed for the procedure. PROCEDURE: After local infiltration of 1% lidocaine, a 6-[place] sheath was placed in the right femoral artery. Left to right coronary angiography were performed with 6-[place] JL4 and JR4 diagnostic catheter. The scintigram and aortogram were performed with 6-[place] pigtail catheter. The patient tolerated the procedure well without any complications. ANGIOGRAPHIC FINDINGS: Selective injection of the left coronary artery reveal the left main to be a normal vessel. The left main trifurcated into small-caliber LAD, medium-sized circumflex, and a small ramus branch. The entire left coronary circulation was angiographically unremarkable. Selective injection of right coronary artery revealed small-caliber vessel. This was angiographically unremarkable. The scintigram performed in the RAMAN projection revealed normal wall motion. Ejection fraction is estimated at 55%. Aortography performed in [place] projection revealed mildly dilated aortic root. There was no aortic insufficiency or dissection. CONCLUSION: Unremarkable coronary circulation; however, the possibility of small vessel disease or diffuse coronary spasm cannot be completely excluded. RECOMMENDATIONS: Optimize medical therapy for both hypertension and diabetes mellitus and consider initiating Cardizem at 30 mg p.o. q.8 hours besides daily baby aspirin. Francisco Lund MD
--- NOTE | 2017-03-03 16:01 | PQF GENQUE ---
03/03/17 Dr. Rubio, Please see blood culture results dated 02/25 (x2). Any additional diagnosis pertaining to these results? Thank you. Clarification of your documentation is requested to better reflect the severity of illness and intensity of treatment of your patient. Indicators present [] Specify: [] [] Specify: [] [] Specify: [] [] Specify: [] Location in the medical record that reflects the above clinical findings: [] Treatment Provided: [] PHYSICIAN'S RESPONSE Based on your medical judgment of the clinical indicators outlined above please clarify the following: Please review notes; bcx growing coag negative staph x 2 likely contamination. [] Practitioner response [] If unable to determine, please check the box, sign and date. Present On Admission (POA) Indicator: [] Present at the time of admission [] Not present at the time of admission [] Clinically Undetermined In responding to this query, please exercise your independent professional judgment. The fact that a question is asked does not imply that any particular answer is desired or expected. Thank you for your clarification on this documentation. If you have any questions please call:[ ] * Thank you, [ ] process coach THAI
== END 2017-02-28 19:27 | disposition home or self-care (01) ==
LOC: ED 21:10 → ERH 02-26 02:30 → 3RNO 02-26 04:22 → INTOOBSV 02-27 17:51 → OBSVTOIN 02-27 17:51 → 2RSO 02-28 13:54
PROVIDERS: ADMIT Internal Medicine; ATTEND Internal Medicine
PROC: B2111ZZ Fluoroscopy of Multiple Coronary Arteries using Low Osmolar Contrast (ICD-10-PCS; principal; 2017-02-28)
PROC: B2151ZZ Fluoroscopy of Left Heart using Low Osmolar Contrast (ICD-10-PCS; 2017-02-28)
PROC: B3101ZZ Fluoroscopy of Thoracic Aorta using Low Osmolar Contrast (ICD-10-PCS; 2017-02-28)
DX: R07.9 Chest pain, unspecified (principal); J43.9 Emphysema, unspecified; I10 Essential (primary) hypertension; N39.0 Urinary tract infection, site not specified; E11.9 Type 2 diabetes mellitus without complications; B96.20 Unspecified Escherichia coli [E. coli] as the cause of diseases classified elsewhere; I77.810 Thoracic aortic ectasia; E03.9 Hypothyroidism, unspecified; J45.909 Unspecified asthma, uncomplicated; Z87.442 Personal history of urinary calculi; K57.90 Diverticulosis of intestine, part unspecified, without perforation or abscess without bleeding; M81.0 Age-related osteoporosis without current pathological fracture; Z79.4 Long term (current) use of insulin; Z79.82 Long term (current) use of aspirin; Z79.899 Other long term (current) drug therapy; Z83.3 Family history of diabetes mellitus; Z87.440 Personal history of urinary (tract) infections; M19.90 Unspecified osteoarthritis, unspecified site; R40.2412 Glasgow coma scale score 13-15, at arrival to emergency department; R30.0 Dysuria; E78.5 Hyperlipidemia, unspecified
CPT/HCPCS: 36415; 74176; 80053; 80061; 81001; 81003; 82150; 82550; 82948; 83036; 83615; 83690; 84443; 84484; 85025; 85610; 85730; 87040; 87086; 87149; 87181; 87205; 93005; 93458; 99152; 99285; C1769; C2629; C9113; G0378; J0692; J0696; J1644; J2250; J3010; Q9967

== ENCOUNTER 2017-03-20 12:52 | Inpatient (IN) | payer MEDICAID ==
--- NOTE | 2017-03-20 13:21 | ED PDOC ---
Arrival/HPI - General Chief Complaint: Chest Pain Time Seen by Provider: 03/20/17 12:55 Historian: Patient, Lathe Hand - History of Present Illness Narrative History of Present Illness (Text): 03/20/17 13:18 Patient is a 62 yo female presents to ED stating that she has had squeezing chest discomfort since 9 am while she was in the bathroom. States she experienced similar discomfort last night approximately 10 pm but that it has resolved when she went to bed. She states she woke up and then after waking up experienced this chest discomfort while standing in the bathroom and she has had it constantly since then. Reports some pain in the upper back as wells. Denies pleuritic pain. States that she feels as if she feels numb to right side of face and that she has some uncontrollable twitching to face "like I'm going to bite my tongue. Reports mild headache. Denies visual symptoms. States she feels shaky but attributes this to feeling cold. Denies fever. Denies urinary symptoms. Denies leg pain or weakness. Time/Duration: Other (since last night) Symptom Onset: Gradual Past Medical History - Infectious Disease Hx of Infectious Diseases: None - Tetanus Immunization Tetanus Immunization: Unknown - Cardiac Hx Cardiac Disorders: Yes Hx Hypertension: Yes - Pulmonary Hx Respiratory Disorders: Yes Hx Asthma: Yes Hx Emphysema: Yes - Neurological Hx Neurological Disorder: No - HEENT Hx HEENT Disorder: Yes Other/Comment: left eye scraping 10/2016 - Renal Hx Renal Disorder: No Hx Kidney Stones: Yes (right) - Endocrine/Metabolic Hx Endocrine Disorders: Yes Hx Diabetes Mellitus Type 2: Yes Hx Hypothyroidism: Yes - Hematological/Oncological Hx Blood Disorders: No - Integumentary Hx Dermatological Disorder: No - Musculoskeletal/Rheumatological Hx Musculoskeletal Disorders: Yes Hx Arthritis: Yes Hx Osteoarthritis: Yes Hx Osteoporosis: Yes - Gastrointestinal Hx Gastrointestinal Disorders: No - Genitourinary/Gynecological Hx Genitourinary Disorders: No - Psychiatric Hx Psychophysiologic Disorder: Yes Hx Bipolar Disorder: No Hx Emotional Abuse: No Hx Hallucinations: No Hx Panic Disorder: No Hx Post Traumatic Stress Disorder: No Hx Psychosis: No Hx Physical Abuse: No Hx Schizophrenia: No Hx Sexual Abuse: No Hx Substance Use: No - Surgical History Hx Orthopedic Surgery: Yes (BACK 10yrs ago) Other/Comment: breast bx - Anesthesia Hx Anesthesia: Yes Hx Anesthesia Reactions: No Hx Malignant Hyperthermia: No - Suicidal Assessment Feels Threatened In Home Enviroment: No Family/Social History Family/Social History: Unknown Family HX Smoking Status: Never Smoked Hx Alcohol Use: No Hx Substance Use: No Hx Substance Use Treatment: No Allergies/Home Meds Allergies/Adverse Reactions: Allergies No Known Allergies Allergy (Verified 03/20/17 13:05) Home Medications: Home Meds Medication Instructions Recorded Confirmed Lisinopril [Zestril] 5 mg PO DAILY 04/17/16 03/20/17 MetFORMIN [glucoPHAGE] 500 mg PO BID 04/17/16 03/20/17 Simvastatin [Zocor] 20 mg PO DAILY 04/17/16 03/20/17 Albuterol 0.083% [Albuterol 0.083% 0.083 inh INH PRN PRN 03/20/17 03/20/17 Inhal Sandra (2.5 mg/3 ml) UD] Albuterol HFA [Ventolin HFA 90 2 puff INH PRN PRN 03/20/17 03/20/17 mcg/actuation (8 g)] Cholestyramine [Questran] 4 gm PO BID 03/20/17 03/20/17 Cyanocobalamin/Folic AC/Vit B6 [B 1 tab PO DAILY 03/20/17 03/20/17 Complex-Folic Acid Tablet] Ergocalciferol (Vitamin D2) 50,000 unit PO DAILY 03/20/17 03/20/17 [Vitamin D2] Ipratropium 0.02% [Atrovent] 1 tub INH PRN PRN 03/20/17 03/20/17 Levothyroxine [Synthroid] 75 mcg PO DAILY 03/20/17 03/20/17 MetFORMIN [glucOPHAGE] 500 mg PO BID 03/20/17 03/20/17 Nitrofurantoin Macrocrystal 100 mg PO DAILY 03/20/17 03/20/17 [Nitrofurantoin Macrocrystals] [id number] Ethyl Esters [OMEGA 3] 1,000 mg PO DAILY 03/20/17 03/20/17 Simvastatin [Zocor] 20 mg PO DAILY 03/20/17 03/20/17 Review of Systems - Review of Systems Constitutional: Fatigue. absent: Fevers Eyes: absent: Vision Changes, Photophobia, Eye Pain ENT: Other (uncontrollable facial movements). absent: Hearing Changes Respiratory: absent: SOB, Cough Cardiovascular: Chest Pain, ALMANZA. absent: Palpitations, Edema, Calf Pain Gastrointestinal: absent: Abdominal Pain, Diarrhea, Nausea Genitourinary Female: absent: Dysuria, Frequency Musculoskeletal: absent: Back Pain, Neck Pain Skin: absent: Rash Neurological: Headache, Gait Changes, Speech Changes, Facial Droop. absent: Dizziness, Disequilibrium, Seizure Endocrine: absent: Polyuria Hemo/Lymphatic: absent: Easy Bleeding Psychiatric: Anxiety Physical Exam Vital Signs Reviewed: Yes Vital Signs Temp Pulse Resp BP Pulse Ox 03/20/17 15:45 73 16 133/74 95 03/20/17 13:56 82 18 130/80 99 03/20/17 12:52 97.8 F 88 18 140/107 H 98 Temperature: Afebrile Appearance: Positive for: Uncomfortable Pain Distress: Mild Mental Status: Positive for: Alert and Oriented X 3 Finger Stick Blood Glucose: 146 - Systems Exam Head: Present: Atraumatic, Normocephalic Pupils: Present: PERRL Extroacular Muscles: Present: EOMI Mouth: Present: Moist Mucous Membranes Pharnyx: No: ERYTHEMA Nose (Internal): Present: Normal Inspection Neck: Present: Normal Range of Motion. No: Meningeal Signs, MIDLINE TENDERNESS Respiratory/Chest: Present: Clear to Auscultation. No: Respiratory Distress Cardiovascular: Present: Regular Rate and Rhythm Abdomen: Present: Normal Bowel Sounds. No: Tenderness, Peritoneal Signs Back: No: CVA Tenderness, Midline Tenderness Upper Extremity: Present: NORMAL PULSES. No: Cyanosis, Edema Lower Extremity: Present: NORMAL PULSES. No: Edema, CALF TENDERNESS Neurological: Present: Speech Normal, Other (right sided facial droop, left pronator drift in left upper extremity) Skin: Present: Warm Psychiatric: Present: Alert, Anxious Medical Decision Making ED Course and Treatment: 03/20/17 13:26 Patient seen upon arrival. I reviewed past records which reveal she had an unremarkable cardiac catherization earlier this month. EKG obtained today is unremarkable. She is noted to appear somewhat tremulous and anxious, although right sided facial droop is noted and left upper extremity mild pronator drift is noted. She states she feels numb to right side of face. No fever or dental pain noted. Denies headache. She feels twitching to face since yesterday. Cannot exclude cva/tia given exam, she has prior history of facial droop reportedly. BP and pulse equal in both upper extremities. No mid scapular pain currently described. Will obtain Head CT, card isos. 03/20/17 13:48 chest xray: Creator : BULMARO SHEPHERD MD IMPRESSION: No active disease. 03/20/17 14:10 CT HEAD WITHOUT CONTRAST Creator : Mic Webb MD FINDINGS: HEMORRHAGE: No intracranial hemorrhage. BRAIN: No mass effect or edema. No atrophy or chronic microvascular ischemic changes. VENTRICLES: Unremarkable. No hydrocephalus. CALVARIUM: Unremarkable. PARANASAL SINUSES: Unremarkable as visualized. No significant inflammatory changes. MASTOID AIR CELLS: Unremarkable as visualized. No inflammatory changes. IMPRESSION: No acute finding On re-exam, after ct head, patient's facial droop improved. No focal acute weakness noted. Chest pain resolved. As recent cardiac cath unremarkable, current chest pain unlikely secondary to IN , although will continue to monitor symptoms. Patients CT head unremarkable. She currently denies flank or back pain. Afebrile. Cannot exclude possible tia/cva, although not tpa candidate as patient with mild symptoms and rapidly improving. Patient's daughter presented to ED, history reviewed with daughter and treatment plan reviewed. Patient agreeable to admission. Complete history and physical also performed with manager financial reporting with patient's approval. - Lab Interpretations Lab Results: 03/20/17 13:15 03/20/17 13:15 Lab Results 03/20/17 13:15: Blood Type O POSITIVE, Antibody Screen Negative, BBK History Checked Patient has bt 03/20/17 13:15: Sodium 142, Potassium 3.9, Chloride 106, Carbon Dioxide 24, Anion Gap 16, BUN 20, Creatinine 0.8, Est GFR ( Amer) > 60, Est GFR (Non- Af Amer) > 60, Random Glucose 118 H, Calcium 10.0, Total Bilirubin 0.4, AST 28, ALT 37, Alkaline Phosphatase 109, Troponin I < 0.01, Total Protein 7.4, Albumin 4.4, Globulin 3.0, Albumin/Globulin Ratio 1.5, Triglycerides 369 H, Cholesterol 190, LDL Cholesterol Direct 48, HDL Cholesterol 51 03/20/17 13:15: PT 10.6, INR 0.98, APTT 23.3 L 03/20/17 13:15: WBC 7.8 D, RBC 3.94, Hgb 11.8 L, Hct 35.1 L, MCV 89.1, MCH 29.9 , MCHC 33.6, RDW 13.3, Plt Count 193, MPV 9.9, Gran % 58.3, Lymph % (Auto) 30.5 , [place] % (Auto) 4.5, Eos % (Auto) 6.4 H, Baso % (Auto) 0.3, Gran # 4.54, Lymph # 2.4, [place] # 0.4, Eos # 0.5, Baso # 0.02 03/20/17 13:12: POC Glucose (mg/dL) 146 H - RAD Interpretation Radiology Orders: 03/20/17 13:09 CHEST PORTABLE [RAD] Stat 03/20/17 13:29 HEAD W/O CONTRAST [CT] Stat - Medication Orders Current Medication Orders: Discontinued Medications Aspirin (Aspirin Chewable) 81 mg PO STAT STA Stop: 03/20/17 14:47 Last Admin: 03/20/17 15:01 Dose: 81 mg NIHSS Scale ([place]) Time Performed: 13:24 - How Severe is the Stoke Baseline Level of Consciousness: 0=Alert LOC to Questions: 0=Both comments correct LOC to commands: 0=Obeys both correctly Best Gaze: 0=Normal Visual: 0=No visual loss Facial: 1=Minor asymmetry Motor Arm - Left: 1=Drift noted before 10 sec Motor Arm - Right: 0=No drift Motor Leg - Left: 0=No drift Motor Leg - Right: 0=No drift Limb Ataxia: 0=Absent Sensory: 0=Normal Best Language: 0=No aphasia Dysarthia: 0=Normal articulation Extinction & Inattention (Neglect): 0=Normal, no object Score: 2 Risk Level: Minor Stroke Risk rTPA Inclusion/Exclusion - Refusal of Treatment Patient Refused Treatment: Yes - Inclusion Criteria for Altepase Time of Onset is Well Established to be Less Than 270 Minute Before Treatment Would Begin: No - Warning to TPA With Conditions Condition: Stroke Serevity Too Mild (unknown time of onset of symptoms) Disposition/Present on Arrival - Present on Arrival Any Indicators Present on Arrival: No History of DVT/PE: No History of Uncontrolled Diabetes: No Urinary Catheter: No History of Decub. Ulcer: No History Surgical Site Infection Following: None - Disposition Have Diagnosis and Disposition been Completed?: Yes Diagnosis: TIA (transient ischemic attack), Facial droop, Chest pain Disposition: HOSPITALIZED Disposition Time: 14:45 Patient Plan: Admission, Telemetry Patient Problems: Current Active Problems Problem Status Onset Chest pain Acute Facial droop Acute TIA (transient ischemic attack) Acute Condition: FAIR
[2017-03-20 13:28] LABS: BASO # 0.02 K/mm3 (0.0-2.0); BASO % 0.3 % (0.0-3.0); EOS # 0.5 (0.0-0.7); EOS % 6.4 % (1.5-5.0); GRAN # 4.54 (1.4-6.5); GRAN % 58.3 % (50.0-68.0); HEMATOCRIT 35.1 % (36.0-48.0); LYMPH # 2.4 (1.2-3.4); LYMPH % 30.5 % (22.0-35.0); MEAN CELL VOLUME 89.1 fl (80.0-105.0); MEAN CORPUSCULAR HEMOGLOBIN 29.9 pg (25.0-35.0); MEAN CORPUSCULAR HGB CONC 33.6 g/dl (31.0-37.0); MEAN PLATELET VOLUME 9.9 fl (7.0-11.0); MONO # 0.4 (0.1-0.6); MONO % 4.5 % (1.0-6.0); RED CELL DISTRIBUTION WIDTH 13.3 % (11.5-14.5); WHITE BLOOD COUNT 7.8 10^3/ul (4.5-11.0)
[2017-03-20 13:38] LABS: INR 0.98 (0.93-1.08); PARTIAL THROMBOPLASTIN TIME 23.3 Seconds (23.7-30.8)
[2017-03-20 13:40] LABS: ALB/GLOB RATIO 1.5 (1.1-1.8); ALKALINE PHOSPHATASE 109 U/L (38-133); ALT/SGPT 37 U/L (7-56); AST/SGOT 28 U/L (15-39); BILIRUBIN,TOTAL 0.4 mg/dL (0.2-1.3); BLOOD UREA NITROGEN 20 mg/dL (7-21); CARBON DIOXIDE 24 mmol/L (21-33); CHLORIDE 106 mmol/L (98-107); CHOLESTEROL 190 mg/dL (130-200); GFR AFRICAN-AMERICAN > 60; GLUCOSE,RANDOM 118 mg/dL (70-110); POTASSIUM 3.9 mmol/L (3.6-5.0); SODIUM 142 mmol/L (132-148); TOTAL PROTEIN 7.4 g/dL (5.8-8.3)
--- NOTE | 2017-03-20 13:45 | RAD ---
HISTORY: chest pain, possible cva COMPARISON: 09/29/2016 FINDINGS: LUNGS: No active pulmonary disease. PLEURA: No significant pleural effusion identified, no pneumothorax apparent. CARDIOVASCULAR: Normal. OSSEOUS STRUCTURES: No significant abnormalities. VISUALIZED UPPER ABDOMEN: Normal. OTHER FINDINGS: None. IMPRESSION: No active disease.
[2017-03-20 13:52] LABS: TROPONIN I < 0.01 ng/mL
--- NOTE | 2017-03-20 14:09 | CT ---
PROCEDURE: CT HEAD WITHOUT CONTRAST. HISTORY: right sided facial droop COMPARISON: None available. TECHNIQUE: Axial computed tomography images were obtained through the head/brain without intravenous contrast. Radiation dose: Total exam DLP = 677 mGy-cm. This CT exam was performed using one or more of the following dose reduction techniques: Automated exposure control, adjustment of the mA and/or kV according to patient size, and/or use of iterative reconstruction technique. FINDINGS: HEMORRHAGE: No intracranial hemorrhage. BRAIN: No mass effect or edema. No atrophy or chronic microvascular ischemic changes. VENTRICLES: Unremarkable. No hydrocephalus. CALVARIUM: Unremarkable. PARANASAL SINUSES: Unremarkable as visualized. No significant inflammatory changes. MASTOID AIR CELLS: Unremarkable as visualized. No inflammatory changes. OTHER FINDINGS: None. IMPRESSION: No acute finding
[2017-03-20] MEDS ORDERED: Albuterol 0.083% Inhal Sol (2.5 mg/3 mL) UD INH PRN (16:53)
[2017-03-20] MEDS ORDERED: Albuterol HFA 90 mcg/actuation (8 g) INH PRN (16:53)
[2017-03-20] MEDS ORDERED: Albuterol-Ipratrop 3 mg / 0.5 (3 ml) UD IH PRN (17:01)
[2017-03-20] MEDS ORDERED: Albuterol 0.083% Inhal Sol (2.5 mg/3 mL) UD IH PRN (17:18)
--- NOTE | 2017-03-20 18:31 | US ---
PROCEDURE: Bilateral carotid artery duplex ultrasound HISTORY: Carotid stenosis TIA PHYSICIAN(S): Jm Borjas MD. TECHNIQUE: Duplex sonography and color-flow Doppler were used to evaluate the carotid bifurcations and limited segments of the vertebral arteries bilaterally. FINDINGS: There is minimal smooth heterogeneous plaque noted at the carotid bifurcations bilaterally. The peak systolic velocity in the proximal right internal carotid artery is 58 cm/sec. This corresponds to a 0-19 percent proximal right ICA stenosis. Normal systolic velocities are noted in the proximal right external carotid artery. There is antegrade flow in the right vertebral artery. The peak systolic velocity in the proximal left internal carotid artery is 67 cm/sec. This corresponds to a 0-19 percent proximal left ICA stenosis. Normal systolic velocities are noted in the proximal left external carotid artery. There is antegrade flow in the left vertebral artery. IMPRESSION: 1. Bilateral 0-19% proximal ICA stenoses. 2. Antegrade flow in both vertebral arteries.
[2017-03-20] MEDS: Cholestyramine 4 gm/Pkt UD PO SCH (19:08)
--- NOTE | 2017-03-20 19:53 | CARD ---
APPROVED REPORT EKG Measurement Heart [id number] <Conclusion> Sinus rhythm with short OK Otherwise normal ECG
--- NOTE | 2017-03-20 21:35 | CP.PCM.HP ---
<NIA CHRISTIANSON - Last Filed: 03/20/17 21:28> History of Present Illness - History of Present Illness History of Present Illness: CC: Weakness, facial droop HPI: Pt is a 62 year old Sinhala speaking female with PMHx of Osteoporosis, emphysema, DM, HTN, HLD, CVA, hypothyroidism, and kidney stones, who reports that this morning when she woke up and went to the bathroom, she had a sensation of chest tightness and pressure, R sided facial droop, and R sided arm and leg weakness. Patient also notes that she bit her tongue. Patient states that chest pain initially resolved, but returned while in the ED. Patient still has R sided weakness in the ED as well. Patient has been evaluated multiple times in the past for stroke-like symptoms, and has had multiple head CTs, none of which showed acute intracranial changes. Of note, she has also recently treated for recent UTI, cardiac cath, TIA, and had cystoscopy 2 days ago and prescribed Flomax and Nitrofurantoin. Pt denies CP, SOB, n/v/d, abdominal pain, fever, chills, dysuria, polyuria, and BRAN. Patient is left hand dominant. PMHX: Osteoporosis, emphysema, DM, HTN, HLD, CVA, hypothyroidism, kidney stones , hiatal hernia Surgeries: Herniated disc procedure, cardiac catherization Meds: Reviewed Allergies: NKDA Social hx: Denied EtOH, tobacco, and illicit drug use PMD: [place] Present on Admission - Present on Admission Any Indicators Present on Admission: No Review of Systems - Review of Systems All systems: reviewed and no additional remarkable complaints except (12 point ROS negative other than what is stated in ED) Past Patient History - Infectious Disease Hx of Infectious Diseases: None - Tetanus Immunizations Tetanus Immunization: Unknown - Past Social History Smoking Status: Never Smoked - CARDIAC Hx Cardiac Disorders: Yes Hx Hypertension: Yes - PULMONARY Hx Respiratory Disorders: Yes Hx Asthma: Yes Hx Emphysema: Yes - NEUROLOGICAL Hx Neurological Disorder: No - HEENT Hx HEENT Problems: Yes Other/Comment: left eye scraping 10/2016 - RENAL Hx Chronic Kidney Disease: No Hx Kidney Stones: Yes (right) - ENDOCRINE/METABOLIC Hx Endocrine Disorders: Yes Hx Diabetes Mellitus Type 2: Yes Hx Hypothyroidism: Yes - HEMATOLOGICAL/ONCOLOGICAL Hx Blood Disorders: No - INTEGUMENTARY Hx Dermatological Problems: No - MUSCULOSKELETAL/RHEUMATOLOGICAL Hx Musculoskeletal Disorders: Yes Hx Arthritis: Yes Hx Osteoarthritis: Yes Hx Osteoporosis: Yes - GASTROINTESTINAL Hx Gastrointestinal Disorders: No - GENITOURINARY/GYNECOLOGICAL Hx Genitourinary Disorders: No - PSYCHIATRIC Hx Psychophysiologic Disorder: Yes Hx Bipolar Disorder: No Hx Emotional Abuse: No Hx Hallucinations: No Hx Panic Symptoms: No Hx Post Traumatic Stress Disorder: No Hx Psychosis: No Hx Physical Abuse: No Hx Schizophrenia: No Hx Sexual Abuse: No Hx Substance Use: No - SURGICAL HISTORY Hx Orthopedic Surgery: Yes (BACK 10yrs ago) Other/Comment: breast bx - ANESTHESIA Hx Anesthesia: Yes Hx Anesthesia Reactions: No Hx Malignant Hyperthermia: No Meds Allergies/Adverse Reactions: Allergies Allergy/AdvReac Type Severity Reaction Status Date / Time No Known Allergies Allergy Verified 03/20/17 18:13 Physical Exam - Constitutional Appears: No Acute Distress - Head Exam Head Exam: ATRAUMATIC, NORMOCEPHALIC - Eye Exam Eye Exam: EOMI, PERRL Pupil Exam: PERRL - ENT Exam ENT Exam: Mucous Membranes Moist - Neck Exam Neck exam: Positive for: Full Rom. Negative for: Lymphadenopathy, Tenderness, Thyromegaly - Respiratory Exam Respiratory Exam: Wheezes. absent: Accessory Muscle Use, Rales, Rhonchi, Respiratory Distress - Cardiovascular Exam Cardiovascular Exam: RRR. absent: Diastolic murmur, Gallop, Rubs, Systolic Murmur - GI/Abdominal Exam GI & Abdominal Exam: Soft. absent: Distended, Guarding, Organomegaly, Rebound, Tenderness - Extremities Exam Extremities exam: Positive for: normal inspection - Back Exam Back exam: NORMAL INSPECTION - Neurological Exam Neurological exam: Alert, CN II-XII Intact, Oriented x3 Additional comments: Mild pronator drift noted on right, No dyskinesia, dysdiadochokinesia, dysarthria, [place]. Negative [place]. R UE/LE 3/5, L UE/LE 5/5. Sensation intact. - Psychiatric Exam Psychiatric exam: Normal Affect, Normal Mood - Skin Skin Exam: Dry, Intact, Normal Color, Warm Results - Vital Signs Recent Vital Signs: Last Vital Signs Temp 98 F 03/20/17 17:48 Pulse 73 03/20/17 18:00 Resp 20 03/20/17 17:48 BP 138/89 03/20/17 17:48 Pulse Ox 97 03/20/17 17:48 - Labs Result Diagrams: 03/20/17 13:15 03/20/17 13:15 Labs: Laboratory Results - last 24 hr 03/20/17 03/20/17 03/20/17 16:26 18:54 18:54 D-Dimer, Quantitative 2.07 H POC Glucose (mg/dL) 93 Troponin I < 0.01 03/20/17 21:20 D-Dimer, Quantitative POC Glucose (mg/dL) 218 H Troponin I Assessment & Plan - Assessment and Plan (Free Text) Assessment: 62 yo F with PMHx significant for DM, TIA, emphysema, and hypothyroidism admitted for evaluation and treatment for TIA and CP r/o ACS. Plan: 1. TIA/Stroke - Admitted in-patient on telemetry - Neuro consulted - PT consulted - Passed bedside swallow, started HHD - CT showed no acute findings suggestive of bleed - F/u MRI, carotid US - Start ASA - Cont Lipitor 2. Chest Pain r/o ACS - Cardio consulted - Troponin negative x2, f/u 3rd troponin - CXR showed no active disease - EKG showed NSR 3. Emphysema - Duoneb PRN 4. HTN - Cont home med: Lisinopril 5. Hypothroidism - Cont home med: Synthroid 6. HLD - Cont home meds: Lipitor and cholestyramine 7. H/o UTI - Cont Macrobid and Flomax GI/DVT PPx - Protonix - Heparin SQ Pt seen and discussed in detail with attending. <Cori Rubio - Last Filed: 03/21/17 07:33> Results - Vital Signs Recent Vital Signs: Last Vital Signs Temp 98 F 03/20/17 21:41 Pulse 51 L 03/21/17 06:00 Resp 20 03/20/17 21:41 BP 138/89 03/20/17 21:41 Pulse Ox 97 03/20/17 17:48 - Labs Result Diagrams: 03/21/17 05:30 03/21/17 05:30 Labs: Laboratory Results - last 24 hr 03/20/17 03/20/17 03/20/17 16:26 18:54 18:54 WBC RBC Hgb Hct MCV MCH MCHC RDW Plt Count MPV D-Dimer, Quantitative 2.07 H Sodium Potassium Chloride Carbon Dioxide Anion Gap BUN Creatinine Est GFR ( Amer) Est GFR (Non-Af Amer) POC Glucose (mg/dL) 93 Random Glucose Calcium Total Bilirubin AST ALT Alkaline Phosphatase Troponin I < 0.01 Total Protein Albumin Globulin Albumin/Globulin Ratio 03/20/17 03/21/17 03/21/17 21:20 01:02 05:30 WBC 5.3 D RBC 3.71 Hgb 10.9 L Hct 32.8 L MCV 88.4 MCH 29.4 MCHC 33.2 RDW 13.7 Plt Count 199 MPV 9.9 D-Dimer, Quantitative Sodium Potassium Chloride Carbon Dioxide Anion Gap BUN Creatinine Est GFR ( Amer) Est GFR (Non-Af Amer) POC Glucose (mg/dL) 218 H Random Glucose Calcium Total Bilirubin AST ALT Alkaline Phosphatase Troponin I < 0.01 Total Protein Albumin Globulin Albumin/Globulin Ratio 03/21/17 05:30 WBC RBC Hgb Hct MCV MCH MCHC RDW Plt Count MPV D-Dimer, Quantitative Sodium 143 Potassium 4.2 Chloride 109 H Carbon Dioxide 24 Anion Gap 14 BUN 15 Creatinine 0.8 Est GFR ( Amer) > 60 Est GFR (Non-Af Amer) > 60 POC Glucose (mg/dL) Random Glucose 98 Calcium 9.3 Total Bilirubin 0.2 AST 26 ALT 31 Alkaline Phosphatase 93 Troponin I Total Protein 6.5 Albumin 3.8 Globulin 2.7 Albumin/Globulin Ratio 1.4 Attending/Attestation - Attestation I have personally seen and examined this patient.: Yes I have fully participated in the care of the patient.: Yes I have reviewed all pertinent clinical information: Yes Notes (Text): 03/20/17 62 year old female with past medical history of TIA, hypertension, diabetes and hypothyroidism who presented with complaint of chest pain, right sided weakness and facial droop. She is admitted to rule out TIA/CVA and ACS. Cardiology and neurology evaluation are requested. Serial cardiac enzymes are ordered. Patient had a recent cardiac cath which was negative. CT head was negative for acute findings. MRI and carotid dopplers are ordered. Continue with aspirin and statin. Cori Rubio MD Hospitalist.
[2017-03-20 22:07] VITALS: BMI 23.0
[2017-03-20] MEDS ORDERED: Pneumococcal 23-Valent Vaccine IM ONE (22:07)
[2017-03-21 06:37] LABS: HEMATOCRIT 32.8 % (36.0-48.0); MEAN CELL VOLUME 88.4 fl (80.0-105.0); MEAN CORPUSCULAR HEMOGLOBIN 29.4 pg (25.0-35.0); MEAN CORPUSCULAR HGB CONC 33.2 g/dl (31.0-37.0); MEAN PLATELET VOLUME 9.9 fl (7.0-11.0); RED CELL DISTRIBUTION WIDTH 13.7 % (11.5-14.5); WHITE BLOOD COUNT 5.3 10^3/ul (4.5-11.0)
[2017-03-21 06:43] LABS: ALB/GLOB RATIO 1.4 (1.1-1.8); ALKALINE PHOSPHATASE 93 U/L (38-133); ALT/SGPT 31 U/L (7-56); AST/SGOT 26 U/L (15-39); BILIRUBIN,TOTAL 0.2 mg/dL (0.2-1.3); BLOOD UREA NITROGEN 15 mg/dL (7-21); CALCIUM 9.3 mg/dL (8.4-10.5); CARBON DIOXIDE 24 mmol/L (21-33); CHLORIDE 109 mmol/L (98-107); GFR AFRICAN-AMERICAN > 60; GLUCOSE,RANDOM 98 mg/dL (70-110); POTASSIUM 4.2 mmol/L (3.6-5.0); SODIUM 143 mmol/L (132-148); TOTAL PROTEIN 6.5 g/dL (5.8-8.3)
[2017-03-21] MEDS: Insulin Lispro 1 UNITS/0.01 ML SC SCH ×3 (07:30→17:07)
[2017-03-21] MEDS ORDERED: Iodixanol 320 MG/ML 100 ML BOTTLE IV ONE (07:57)
--- NOTE | 2017-03-21 08:47 | CT ---
PROCEDURE: CT Chest with contrast (Pulmonary Angiogram) HISTORY: elevated d-dimer COMPARISON: None available. TECHNIQUE: Axial computed tomography images were obtained of the chest in the pulmonary arterial phase of enhancement. Coronal and sagittal reformatted images were created and reviewed. This CT exam was performed using one or more of the following dose reduction techniques: Automated exposure control, adjustment of the mA and/or kV according to patient size, and/or use of iterative reconstruction technique. Intravenous contrast dose: 100 cc of Visipaque Radiation dose: Total exam DLP = 290 mGy-cm. FINDINGS: PULMONARY ARTERIES: Unremarkable. No pulmonary embolism. AORTA: No acute findings. No thoracic aortic aneurysm. LUNGS: Unremarkable. No nodule, mass or pulmonary consolidation. PLEURAL SPACES: Unremarkable. No effusion or pneuomothorax. HEART: Unremarkable. No cardiomegaly. No significant pericardial effusion. LYMPH NODES: No lymphadenopathy. BONES, CHEST WALL: Unremarkable. No fracture or destructive lesion OTHER FINDINGS: Unremarkable. IMPRESSION: Unremarkable CT pulmonary angiogram. No pulmonary embolus.
[2017-03-21] MEDS: Levothyroxine 75 MCG TAB PO SCH (09:32)
[2017-03-21] MEDS: Cholestyramine 4 gm/Pkt UD PO SCH ×2 (09:33→17:13)
--- NOTE | 2017-03-21 11:50 | CP.PCM.CON ---
<Yung Bee - Last Filed: 03/21/17 11:37> History of Present Illness - History of Present Illness History of Present Illness: Neurology Consult Note for Dr. Echeverria Reason for Consult: TIA 62 y/o F with PMH of osteoporosis, emphysema, DM, HTN, HLD, CVA, hypothyroidism , and nephrolithiasis presented to the hospital for chest discomfort along with right sided facial droop. Patient states she woke up and noticed these symptoms. She also admits to having right sided weakness during this time. Patient also stated she had substernal chest pain during this time. She states pain did not radiate to her left arm or jaw. She did not take any medications for her symptoms. Today, patient states she has chest discomfort but no right sided facial droop or weakness at this time. Patient states she has had multiple episodes like this in the past. Denies SOB, N/V/D, fever, chills, syncope, dizziness PMH: Osteoporosis, emphysema, DM, HTN, HLD, CVA, hypothyroidism, Nephrolithiasis Surgical Hx: Herniated disc procedure, cardiac catherization Social hx: Denied EtOH, tobacco, and illicit drug use Meds: Reviewed, as per chart Allergies: NKDA Review of Systems - Review of Systems Review of Systems: 13 point review of systems as per HPI, otherwise negative Past Patient History - Infectious Disease Hx of Infectious Diseases: None - Tetanus Immunizations Tetanus Immunization: Unknown - Past Social History Smoking Status: Never Smoked - CARDIAC Hx Cardiac Disorders: Yes Hx Hypertension: Yes - PULMONARY Hx Respiratory Disorders: Yes Hx Asthma: Yes Hx Emphysema: Yes - NEUROLOGICAL Hx Neurological Disorder: No - HEENT Hx HEENT Problems: Yes Other/Comment: left eye scraping 10/2016 - RENAL Hx Chronic Kidney Disease: No Hx Kidney Stones: Yes (right) - ENDOCRINE/METABOLIC Hx Endocrine Disorders: Yes Hx Diabetes Mellitus Type 2: Yes Hx Hypothyroidism: Yes - HEMATOLOGICAL/ONCOLOGICAL Hx Blood Disorders: No - INTEGUMENTARY Hx Dermatological Problems: No - MUSCULOSKELETAL/RHEUMATOLOGICAL Hx Musculoskeletal Disorders: Yes Hx Arthritis: Yes Hx Osteoarthritis: Yes Hx Osteoporosis: Yes - GASTROINTESTINAL Hx Gastrointestinal Disorders: No - GENITOURINARY/GYNECOLOGICAL Hx Genitourinary Disorders: No - PSYCHIATRIC Hx Psychophysiologic Disorder: Yes Hx Bipolar Disorder: No Hx Emotional Abuse: No Hx Hallucinations: No Hx Panic Symptoms: No Hx Post Traumatic Stress Disorder: No Hx Psychosis: No Hx Physical Abuse: No Hx Schizophrenia: No Hx Sexual Abuse: No Hx Substance Use: No - SURGICAL HISTORY Hx Orthopedic Surgery: Yes (BACK 10yrs ago) Other/Comment: breast bx - ANESTHESIA Hx Anesthesia: Yes Hx Anesthesia Reactions: No Hx Malignant Hyperthermia: No Meds Allergies/Adverse Reactions: Allergies Allergy/AdvReac Type Severity Reaction Status Date / Time No Known Allergies Allergy Verified 03/20/17 18:13 - Medications Medications: Current Medications Albuterol/Ipratropium (Duoneb 3 Mg/0.5 Mg (3 Ml) Ud) 3 ml IH Q2H PRN PRN Reason: Shortness of Breath Aspirin (Aspirin Chewable) 81 mg PO DAILY [facility] Last Admin: 03/21/17 09:32 Dose: 81 mg Atorvastatin Calcium (Lipitor) 10 mg PO DIN [facility] Cholestyramine Resin (Questran) 4 gm PO BID [facility] Last Admin: 03/21/17 09:33 Dose: 4 gm Ergocalciferol (Drisdol 50,000 Intl Units Cap) 1 cap PO SUN [facility] Heparin Sodium (Porcine) (Heparin) 5,000 units SC Q12 [facility] PRN Reason: Protocol Last Admin: 03/21/17 09:33 Dose: 5,000 units Sodium Chloride (Sodium Chloride 0.9%) 1,000 mls @ 100 mls/hr IV .Q10H [facility] Insulin Human Lispro (Humalog) 0 units SC ACTID [facility] PRN Reason: Protocol Last Admin: 03/21/17 07:30 Dose: Not Given Levothyroxine Sodium (Synthroid) 75 mcg PO DAILY [facility] Last Admin: 03/21/17 09:32 Dose: 75 mcg Lisinopril (Zestril) 5 mg PO DAILY [facility] Nitrofurantoin Macrocrystals (Macrobid) 100 mg PO Q12 [facility] Last Admin: 03/21/17 09:32 Dose: 100 mg Pantoprazole Sodium (Protonix Inj) 40 mg IVP DAILY [facility] Last Admin: 03/21/17 09:32 Dose: 40 mg Tamsulosin HCl (Flomax) 0.4 mg PO DAILY [facility] Last Admin: 03/21/17 09:33 Dose: 0.4 mg Physical Exam - Constitutional Appears: Non-toxic, No Acute Distress - Head Exam Head Exam: ATRAUMATIC, NORMAL INSPECTION, NORMOCEPHALIC - Eye Exam Eye Exam: EOMI - Respiratory Exam Respiratory Exam: Clear to Auscultation Bilateral, NORMAL BREATHING PATTERN. absent: Rales, Rhonchi, Wheezes - Cardiovascular Exam Cardiovascular Exam: RRR, +S1, +S2 - GI/Abdominal Exam GI & Abdominal Exam: Normal Bowel Sounds, Soft. absent: Tenderness - Extremities Exam Extremities exam: Positive for: normal inspection - Neurological Exam Neurological exam: Alert, CN II-XII Intact, Oriented x3 Additional comments: No motor or sensory deficits Muscle strength 5/5 throughout all extremities No pronator drift Recall after 1 and 5 minutes appropriate - Psychiatric Exam Psychiatric exam: Normal Affect, Normal Mood - Skin Skin Exam: Intact, Normal Color, Warm Results - Vital Signs Recent Vital Signs: Last Vital Signs Temp 98.3 F 03/21/17 06:00 Pulse 60 03/21/17 09:33 Resp 20 03/21/17 06:00 BP 90/50 L 03/21/17 09:33 Pulse Ox 95 03/21/17 06:00 - Labs Result Diagrams: 03/21/17 05:30 03/21/17 05:30 Labs: Laboratory Results - last 24 hr 03/20/17 03/20/17 03/20/17 16:26 18:54 18:54 WBC RBC Hgb Hct MCV MCH MCHC RDW Plt Count MPV D-Dimer, Quantitative 2.07 H Sodium Potassium Chloride Carbon Dioxide Anion Gap BUN Creatinine Est GFR ( Amer) Est GFR (Non-Af Amer) POC Glucose (mg/dL) 93 Random Glucose Calcium Total Bilirubin AST ALT Alkaline Phosphatase Troponin I < 0.01 Total Protein Albumin Globulin Albumin/Globulin Ratio 03/20/17 03/21/17 03/21/17 21:20 01:02 05:30 WBC 5.3 D RBC 3.71 Hgb 10.9 L Hct 32.8 L MCV 88.4 MCH 29.4 MCHC 33.2 RDW 13.7 Plt Count 199 MPV 9.9 D-Dimer, Quantitative Sodium Potassium Chloride Carbon Dioxide Anion Gap BUN Creatinine Est GFR ( Amer) Est GFR (Non-Af Amer) POC Glucose (mg/dL) 218 H Random Glucose Calcium Total Bilirubin AST ALT Alkaline Phosphatase Troponin I < 0.01 Total Protein Albumin Globulin Albumin/Globulin Ratio 03/21/17 03/21/17 05:30 07:27 WBC RBC Hgb Hct MCV MCH MCHC RDW Plt Count MPV D-Dimer, Quantitative Sodium 143 Potassium 4.2 Chloride 109 H Carbon Dioxide 24 Anion Gap 14 BUN 15 Creatinine 0.8 Est GFR ( Amer) > 60 Est GFR (Non-Af Amer) > 60 POC Glucose (mg/dL) 106 Random Glucose 98 Calcium 9.3 Total Bilirubin 0.2 AST 26 ALT 31 Alkaline Phosphatase 93 Troponin I Total Protein 6.5 Albumin 3.8 Globulin 2.7 Albumin/Globulin Ratio 1.4 Assessment & Plan - Assessment and Plan (Free Text) Plan: 62 y/o F with PMH of osteoporosis, emphysema, DM, HTN, HLD, CVA, hypothyroidism , and nephrolithiasis presents with TIA. Patient had Head CT which showed no acute findings. Carotid US showed b/l ICA stenoses of 0-19%. Patient has brain MRI pending at this time. Patient should continue ASA and lipitor for stroke prevention. Patient neurologically stable at this time. Plan: ASA 81 mg daily Lipitor 10 mg daily Brain MRI Maintain SBP 120-130 Correct electrolyte abnormalities Rohit, PGY-2 <Ricardo Echeverria - Last Filed: 03/25/17 11:04> Results - Vital Signs Recent Vital Signs: Last Vital Signs Temp 97.5 F L 03/22/17 12:00 Pulse 61 03/22/17 14:00 Resp 20 03/22/17 12:00 BP 151/89 H 03/22/17 12:00 Pulse Ox 18 L 03/22/17 06:19 - Labs Result Diagrams: 03/22/17 06:00 03/22/17 06:00 Attending/Attestation - Attestation I have personally seen and examined this patient.: Yes I have fully participated in the care of the patient.: Yes I have reviewed all pertinent clinical information: Yes
--- NOTE | 2017-03-21 13:28 | MRI ---
PROCEDURE: MRI BRAIN WITHOUT CONTRAST HISTORY: tia/stroke COMPARISON: None. TECHNIQUE: Multiplanar, multisequence MR images of the brain were obtained without intravenous contrast enhancement. FINDINGS: HEMORRHAGE: None DWI: No evidence of an acute or early subacute infarction. BRAIN PARENCHYMA: No mass effect or edema. Minimal microvascular changes are seen in the periventricular white matter. The ventricles and sulci are normal in size VENTRICLES: Unremarkable. No hydrocephalus. CRANIUM: Unremarkable. ORBITS: Grossly unremarkable. PARANASAL SINUSES/MASTOIDS: Clear VASCULAR SYSTEM: Skull base flow voids intact. OTHER FINDINGS: None. IMPRESSION: Unremarkable non contrast enhanced MRI of the brain.
--- NOTE | 2017-03-21 14:26 | CP.PCM.PN ---
<NIA CHRISTIANSON - Last Filed: 03/21/17 14:21> Subjective - Date & Time of Evaluation Date of Evaluation: 03/21/17 Time of Evaluation: 14:23 - Subjective Subjective: Medicine Progress Note: Pt seen and examined at bedside. Pt states that her right arm and leg still feels weak, but CP has mostly subsided. Pt denies SOB, n/v/d, fever, chills, abdominal pain, dysuria, hematuria, melena, hematochezia. Objective - Vital Signs/Intake and Output Vital Signs (last 24 hours): Temp Pulse Resp BP Pulse Ox 98.3 F 60 20 90/50 L 95 03/21/17 06:00 03/21/17 09:33 03/21/17 06:00 03/21/17 09:33 03/21/17 06:00 Intake and Output: 03/21/17 03/21/17 06:59 18:59 Intake Total 400 Output Total 0 Balance 400 - Medications Medications: Current Medications Albuterol/Ipratropium (Duoneb 3 Mg/0.5 Mg (3 Ml) Ud) 3 ml IH Q2H PRN PRN Reason: Shortness of Breath Aspirin (Aspirin Chewable) 81 mg PO DAILY [facility] Last Admin: 03/21/17 09:32 Dose: 81 mg Atorvastatin Calcium (Lipitor) 10 mg PO DIN [facility] Cholestyramine Resin (Questran) 4 gm PO BID [facility] Last Admin: 03/21/17 09:33 Dose: 4 gm Ergocalciferol (Drisdol 50,000 Intl Units Cap) 1 cap PO SUN [facility] Heparin Sodium (Porcine) (Heparin) 5,000 units SC Q12 [facility] PRN Reason: Protocol Last Admin: 03/21/17 09:33 Dose: 5,000 units Sodium Chloride (Sodium Chloride 0.9%) 1,000 mls @ 100 mls/hr IV .Q10H [facility] Insulin Human Lispro (Humalog) 0 units SC ACTID [facility] PRN Reason: Protocol Last Admin: 03/21/17 07:30 Dose: Not Given Levothyroxine Sodium (Synthroid) 75 mcg PO DAILY [facility] Last Admin: 03/21/17 09:32 Dose: 75 mcg Lisinopril (Zestril) 5 mg PO DAILY [facility] Nitrofurantoin Macrocrystals (Macrobid) 100 mg PO Q12 [facility] Last Admin: 03/21/17 09:32 Dose: 100 mg Pantoprazole Sodium (Protonix Inj) 40 mg IVP DAILY [facility] Last Admin: 03/21/17 09:32 Dose: 40 mg Tamsulosin HCl (Flomax) 0.4 mg PO DAILY [facility] Last Admin: 03/21/17 09:33 Dose: 0.4 mg - Labs Labs: 03/21/17 05:30 03/21/17 05:30 PT 10.6 Seconds (9.9-11.8) 03/20/17 13:15 INR 0.98 (0.93-1.08) 03/20/17 13:15 APTT 23.3 Seconds (23.7-30.8) L 03/20/17 13:15 - Constitutional Appears: No Acute Distress - Head Exam Head Exam: ATRAUMATIC, NORMOCEPHALIC - Eye Exam Eye Exam: EOMI, PERRL - ENT Exam ENT Exam: Mucous Membranes Moist - Neck Exam Neck Exam: Full ROM. absent: Lymphadenopathy, Tenderness, Thyromegaly - Respiratory Exam Respiratory Exam: Clear to Ausculation Bilateral. absent: Rales, Rhonchi, Wheezes - Cardiovascular Exam Cardiovascular Exam: RRR, +S1, +S2. absent: Diastolic murmur, Gallop, Rubs, Murmur - GI/Abdominal Exam GI & Abdominal Exam: Soft. absent: Distended, Guarding, Rigid, Tenderness, Organomegaly, Rebound - Extremities Exam Extremities Exam: Normal Inspection - Back Exam Back Exam: NORMAL INSPECTION - Neurological Exam Neurological Exam: Awake, Normal Gait, Oriented x3 Neuro motor strength exam: Left Upper Extremity: 4, Left Lower Extremity: 3, Right Lower Extremity: 4 - Psychiatric Exam Psychiatric exam: Normal Affect, Normal Mood - Skin Skin Exam: Dry, Intact, Normal Color, Warm Assessment and Plan - Assessment and Plan (Free Text) Assessment: 62 yo F with PMHx significant for DM, TIA, emphysema, and hypothyroidism admitted for evaluation and treatment for TIA and CP r/o ACS. Plan: 1. TIA/Stroke - Admitted in-patient on telemetry - Neuro consulted, recommends out-patient follow up - PT consulted, recommends TCU/KUN - Passed bedside swallow, started HHD - CT showed no acute findings suggestive of bleed - MRI, carotid US negative - Cont Lipitor, ASA 2. Chest Pain r/o ACS - Cardio consulted, f/u recs - Troponin negative x3 - CXR showed no active disease - EKG showed NSR - EF shows 55% 3. Elevated D-dimer - D-dimer - CT angio negative for PE - F/u LE DVT venous doppler 4. HTN - Hypotensive 90/50 today will hold lisinopril - NS @100 5. Emphysema - Duoneb PRN 6. Hypothroidism - Cont home med: Synthroid 7. HLD - Cont home meds: Lipitor and cholestyramine 8. H/o UTI - Cont Macrobid and Flomax GI/DVT PPx - Protonix - Heparin SQ Pt seen and discussed in detail with attending. <Cori Rubio - Last Filed: 03/21/17 15:39> Objective - Vital Signs/Intake and Output Vital Signs (last 24 hours): Temp Pulse Resp BP Pulse Ox 98.3 F 60 20 90/50 L 95 03/21/17 06:00 03/21/17 09:33 03/21/17 06:00 03/21/17 09:33 03/21/17 06:00 Intake and Output: 03/21/17 03/21/17 06:59 18:59 Intake Total 400 Output Total 0 Balance 400 - Medications Medications: Current Medications Albuterol/Ipratropium (Duoneb 3 Mg/0.5 Mg (3 Ml) Ud) 3 ml IH Q2H PRN PRN Reason: Shortness of Breath Aspirin (Aspirin Chewable) 81 mg PO DAILY [facility] Last Admin: 03/21/17 09:32 Dose: 81 mg Atorvastatin Calcium (Lipitor) 10 mg PO DIN [facility] Cholestyramine Resin (Questran) 4 gm PO BID [facility] Last Admin: 03/21/17 09:33 Dose: 4 gm Ergocalciferol (Drisdol 50,000 Intl Units Cap) 1 cap PO SUN [facility] Heparin Sodium (Porcine) (Heparin) 5,000 units SC Q12 [facility] PRN Reason: Protocol Last Admin: 03/21/17 09:33 Dose: 5,000 units Sodium Chloride (Sodium Chloride 0.9%) 1,000 mls @ 100 mls/hr IV .Q10H [facility] Insulin Human Lispro (Humalog) 0 units SC ACTID [facility] PRN Reason: Protocol Last Admin: 03/21/17 07:30 Dose: Not Given Levothyroxine Sodium (Synthroid) 75 mcg PO DAILY [facility] Last Admin: 03/21/17 09:32 Dose: 75 mcg Lisinopril (Zestril) 5 mg PO DAILY [facility] Nitrofurantoin Macrocrystals (Macrobid) 100 mg PO Q12 [facility] Last Admin: 03/21/17 09:32 Dose: 100 mg Pantoprazole Sodium (Protonix Inj) 40 mg IVP DAILY [facility] Last Admin: 03/21/17 09:32 Dose: 40 mg Tamsulosin HCl (Flomax) 0.4 mg PO DAILY [facility] Last Admin: 03/21/17 09:33 Dose: 0.4 mg - Labs Labs: 03/21/17 05:30 03/21/17 05:30 PT 10.6 Seconds (9.9-11.8) 03/20/17 13:15 INR 0.98 (0.93-1.08) 03/20/17 13:15 APTT 23.3 Seconds (23.7-30.8) L 03/20/17 13:15 Attending/Attestation - Attestation I have personally seen and examined this patient.: Yes I have fully participated in the care of the patient.: Yes I have reviewed all pertinent clinical information, including history, physical exam and plan: Yes Notes (Text): 03/21/17 15:36 62 year old female with past medical history of TIA, hypertension, diabetes and hypothyroidism who presented with complaint of chest pain, right sided weakness and facial droop. She is admitted for possible TIA. CT head, MRI brain and carotid dopplers were negative. PT evaluation was appreciated who is recommending KUN/TCU. Serial cardiac enzymes were negative and ACS was ruled out. Patient had a recent cardiac cath which was negative. Cardiology and neurology evaluation were appreciated. Continue with aspirin and statin. D-dimer was elevated but CT angio is negative. LE dopplers was done with pending read. BP is 90/60 this morning and her lisinopril is on hold. Continue with fluids for now. Will monitor. Cori Rubio MD Hospitalist.
[2017-03-21] MEDS: Sodium Chloride 0.9% 1,000 ML IV SCH ×2 (15:00→21:34)
--- NOTE | 2017-03-21 18:04 | US ---
HISTORY: Leg pain and swelling. Evaluate for DVT PHYSICIAN(S): Jm Borjas MD. TECHNIQUE: Duplex sonography and color-flow Doppler with graded compression were used to evaluate the deep venous systems of both lower extremities. FINDINGS: The visualized deep venous systems of both lower extremities are sonographically normal and compressible. Normal wave forms and augmentation are seen. There is no sonographic evidence for deep venous thrombosis in the visualized segments of both lower extremities. IMPRESSION: No sonographic evidence for deep venous thrombosis in the visualized segments of both lower extremities.
--- NOTE | 2017-03-21 22:36 | PN ---
DATE: CARDIOLOGY CONSULTATION REASON FOR CONSULTATION: Chest pain. SUBJECTIVE: The patient is 62-year-old female who is recently admitted to [facility] because of urinary tract infection. The patient has a history of ureteric stone. The patient at that time reported chest pain. Cardiac catheterization performed on February 28 revealed unremarkable coronary circulation and normal left ventricular systolic function, possibility of microvascular disease or chronic spasm was entertained and I recommended that the patient be discharged on Cardizem 30 mg t.i.d. The patient was admitted at this time because of chest pain. The patient experienced chest pain while in the bathroom around 10:00 p.m. last night. The patient denies any associated diaphoresis or dizziness. SOCIAL HISTORY: The patient is a smoker. MEDICATIONS: Aspirin 81 mg once a day, albuterol inhaler, heparin 5000 units subcutaneously twice a day, Lipitor 10 mg once a day, Macrobid 100 mg p.o. twice a day, Protonix 40 mg at least once a day, Synthroid 75 mcg once a day, Zestril 5 mg once a day. PHYSICAL EXAMINATION GENERAL: The patient is a middle-aged female who does not appear to be in any distress. VITAL SIGNS: Blood pressure 90/50, heart rate 52, temperature 98.3, respirations 20. HEENT: Normocephalic. CHEST: Clear. HEART: S1 and S2 regular. EXTREMITIES: No edema. LABORATORY DATA: Hemoglobin and hematocrit 10.9 and 32.5, white count and platelet count are within normal limits. D-dimer is 2.07. SMA-7 is within normal limits except for chloride of 109. Two sets of troponins are negative. Chest CT angio, no pulmonary embolism. Brain MRI unremarkable noncontrast MRI of the brain. ASSESSMENT AND PLAN: 1. Chest pain, myocardial infraction is ruled out. 2. Unremarkable coronary circulation, possibility of microvascular disease. Coronary artery spasm cannot be excluded. 3. Hypertension. 4. Urinary tract infection. RECOMMENDATIONS: Continue current conservative medical approach including aspirin, subcutaneous heparin, Lipitor, Vistaril, as well as Synthroid. I did review the coronary angiogram that was done earlier this month, which revealed no significant coronary lesion and normal left ventricular systolic function. Francisco Lund MD
[2017-03-22] MEDS ORDERED: Pantoprazole 40 mg EC Tab PO SCH (06:00)
[2017-03-22 06:21] VITALS: O2SAT 18
--- NOTE | 2017-03-22 06:49 | CP.PCM.PN ---
<Alexandr Dimasima - Last Filed: 03/22/17 11:23> Subjective - Date & Time of Evaluation Date of Evaluation: 03/22/17 Time of Evaluation: 07:00 - Subjective Subjective: PGY2 Medicine note for Dr. Rubio Patient seen and examined at bedside. Nursing reports no acute events overnight. Patient reports she feels better this AM but still complains of R arm and leg weakness and some cramping in her RLE. Patient reports chest pain has resolved and she denies any fever, chills, headache, dizziness, palpitations , SOB, cough, abdominal pain, nausea, vomiting, bowel/bladder complaints, swelling in her legs bilaterally. Patient does not want to go to rehab and wants to be discharged home. Patient is tolerating diet. Objective - Vital Signs/Intake and Output Vital Signs (last 24 hours): Temp Pulse Resp BP Pulse Ox 98.1 F 55 L 98 H 115/68 18 L 03/22/17 06:19 03/22/17 06:19 03/22/17 06:19 03/22/17 06:19 03/22/17 06:19 Intake and Output: 03/21/17 03/22/17 18:59 06:59 Intake Total 680 Output Total 350 Balance 330 - Medications Medications: Current Medications Albuterol/Ipratropium (Duoneb 3 Mg/0.5 Mg (3 Ml) Ud) 3 ml IH Q2H PRN PRN Reason: Shortness of Breath Aspirin (Aspirin Chewable) 81 mg PO DAILY [facility] Last Admin: 03/21/17 09:32 Dose: 81 mg Atorvastatin Calcium (Lipitor) 10 mg PO DIN [facility] Last Admin: 03/21/17 17:13 Dose: 10 mg Cholestyramine Resin (Questran) 4 gm PO BID [facility] Last Admin: 03/21/17 17:13 Dose: 4 gm Ergocalciferol (Drisdol 50,000 Intl Units Cap) 1 cap PO SUN [facility] Heparin Sodium (Porcine) (Heparin) 5,000 units SC Q12 [facility] PRN Reason: Protocol Last Admin: 03/21/17 21:24 Dose: 5,000 units Sodium Chloride (Sodium Chloride 0.9%) 1,000 mls @ 100 mls/hr IV .Q10H [facility] Last Admin: 03/21/17 21:34 Dose: 100 mls/hr Insulin Human Lispro (Humalog) 0 units SC ACTID [facility] PRN Reason: Protocol Last Admin: 03/21/17 17:07 Dose: Not Given Levothyroxine Sodium (Synthroid) 75 mcg PO DAILY [facility] Last Admin: 03/21/17 09:32 Dose: 75 mcg Lisinopril (Zestril) 5 mg PO DAILY [facility] Nitrofurantoin Macrocrystals (Macrobid) 100 mg PO Q12 [facility] Last Admin: 03/21/17 21:30 Dose: 100 mg Pantoprazole Sodium (Protonix Ec Tab) 40 mg PO 0600 [facility] Last Admin: 03/22/17 05:12 Dose: 40 mg Tamsulosin HCl (Flomax) 0.4 mg PO DAILY [facility] Last Admin: 03/21/17 09:33 Dose: 0.4 mg - Labs Labs: 03/21/17 05:30 03/21/17 05:30 PT 10.6 Seconds (9.9-11.8) 03/20/17 13:15 INR 0.98 (0.93-1.08) 03/20/17 13:15 APTT 23.3 Seconds (23.7-30.8) L 03/20/17 13:15 - Constitutional Appears: Non-toxic, No Acute Distress - Head Exam Head Exam: ATRAUMATIC, NORMOCEPHALIC - Eye Exam Eye Exam: EOMI, Normal appearance. absent: Conjunctival injection, Scleral icterus - ENT Exam ENT Exam: Mucous Membranes Moist - Neck Exam Neck Exam: Full ROM, Normal Inspection - Respiratory Exam Respiratory Exam: Clear to Ausculation Bilateral, NORMAL BREATHING PATTERN. absent: Rales, Rhonchi, Wheezes, Respiratory Distress - Cardiovascular Exam Cardiovascular Exam: RRR, +S1, +S2. absent: Murmur - GI/Abdominal Exam GI & Abdominal Exam: Soft, Normal Bowel Sounds. absent: Firm, Guarding, Rigid, Tenderness - Extremities Exam Extremities Exam: Normal Inspection. absent: Pedal Edema - Neurological Exam Neurological Exam: Alert, Awake, Oriented x3 - Psychiatric Exam Psychiatric exam: Normal Affect, Normal Mood - Skin Skin Exam: Dry, Intact, Normal Color, Warm Assessment and Plan - Assessment and Plan (Free Text) Assessment: 62 yo female PMHx significant for DM, TIA, emphysema, and hypothyroidism admitted for evaluation and treatment for TIA and CP r/o ACS. Plan: Trasient Ischemic Attack - Neurologically stable at this time - Head CT 03/20: unremarkable - Carotid artery u/s 03/20: b/l 0-19% proximal ICA stenosis; antegrade flow b/l vertebral arteries - Brain MRI 03/21: unremarkable - ASA 81mg po daily - Lipitor 10mg po daily - Neuro Dr. Echeverria on board- recommends out-patient follow up - PT consulted, recommends TCU/KUN Chest Pain r/o ACS - Resolved - Troponin negative x3 - CXR showed no active disease - EKG showed NSR - Echo 08/13: EF shows 55% - Cardiology Dr. Lund on board- continue current conservative medical approach; coronary angiogram reviewed: normal LV systolic function Elevated D-dimer - D-dimer 2.07 on admission - CT angio 03/21: negative for PE - LE venous dopplers 03/21: negative for DVT b/l Hx of HTN - Lisinopril 2.5mg po daily - Monitor BP Hx of Emphysema - Duoneb 3ml inh q2 PRN Hx of Hypothroidism - Synthroid 75mg po daily Hx of HLD - Lipid panel TG 369 Cholesterol 190 LDL 48 HDL 51 - Lipitor 10mg po daily - Cholestyramine 4gm po bid Hx of low vitamin D - Drisdol 50,000u 1 cap po qweekly Hx of DM2 - HgbA1c 6.8 - RISS - Accuchecks Hx of UTI - Flomax 0.4mg po daily - Macrobid 100mg po q12 GI ppx: Protonix 40mg po daily VTE ppx: Heparin 5000u sc q12 Fluids: NS @ 100cc/hr Diet: Heart Healthy diet PT/OT on board Dispo: pending placement Case discussed with Dr. Ramiro Dimas PGY2 <Cori Rubio - Last Filed: 03/22/17 14:03> Objective - Vital Signs/Intake and Output Vital Signs (last 24 hours): Temp Pulse Resp BP Pulse Ox 97.5 F L 56 L 20 151/89 H 18 L 03/22/17 12:00 03/22/17 12:00 03/22/17 12:00 03/22/17 12:00 03/22/17 06:19 Intake and Output: 03/22/17 03/22/17 06:59 18:59 Intake Total 1160 Output Total 350 Balance 810 - Medications Medications: Current Medications Albuterol/Ipratropium (Duoneb 3 Mg/0.5 Mg (3 Ml) Ud) 3 ml IH Q2H PRN PRN Reason: Shortness of Breath Aspirin (Aspirin Chewable) 81 mg PO DAILY [facility] Last Admin: 03/22/17 10:24 Dose: 81 mg Atorvastatin Calcium (Lipitor) 10 mg PO DIN [facility] Last Admin: 03/21/17 17:13 Dose: 10 mg Cholestyramine Resin (Questran) 4 gm PO BID [facility] Last Admin: 03/22/17 10:23 Dose: 4 gm Ergocalciferol (Drisdol 50,000 Intl Units Cap) 1 cap PO SUN [facility] Heparin Sodium (Porcine) (Heparin) 5,000 units SC Q12 [facility] PRN Reason: Protocol Last Admin: 03/22/17 10:24 Dose: Not Given Insulin Human Lispro (Humalog) 0 units SC ACTID [facility] PRN Reason: Protocol Last Admin: 03/22/17 12:11 Dose: Not Given Levothyroxine Sodium (Synthroid) 75 mcg PO DAILY [facility] Last Admin: 03/22/17 10:24 Dose: 75 mcg Lisinopril (Zestril) 2.5 mg PO DAILY [facility] Nitrofurantoin Macrocrystals (Macrobid) 100 mg PO Q12 [facility] Last Admin: 03/22/17 10:24 Dose: 100 mg Pantoprazole Sodium (Protonix Ec Tab) 40 mg PO 0600 [facility] Last Admin: 03/22/17 05:12 Dose: 40 mg Tamsulosin HCl (Flomax) 0.4 mg PO DAILY [facility] Last Admin: 03/22/17 10:24 Dose: 0.4 mg - Labs Labs: 03/22/17 06:00 03/22/17 06:00 PT 10.6 Seconds (9.9-11.8) 03/20/17 13:15 INR 0.98 (0.93-1.08) 03/20/17 13:15 APTT 23.3 Seconds (23.7-30.8) L 03/20/17 13:15 Attending/Attestation - Attestation I have personally seen and examined this patient.: Yes I have fully participated in the care of the patient.: Yes I have reviewed all pertinent clinical information, including history, physical exam and plan: Yes Notes (Text): 03/22/17 13:58 62 year old female with past medical history of TIA, hypertension, diabetes and hypothyroidism who presented with complaint of right sided weakness and facial droop from possible TIA. CT head, MRI brain and carotid dopplers were negative. PT evaluation was appreciated who has recommended KUN/TCU as she still has some weakness and gait unsteadiness. However she is refusing to go to [facility] and wants to go home with home services. Will discuss with upper caser / bilingual social worker on Friday. Continue with aspirin and statin. Continue with physical therapy. She also complained of chest pain. Serial cardiac enzymes are negative and ACS was ruled out. Cardiology is following the patient. She had a recent cardiac cath which was negative. Her blood pressure has improved and we will resume her lisinopril at a lower dose. She is on insulin ss for diabetes. Cori Rubio MD Hospitalist.
[2017-03-22 06:57] LABS: HEMATOCRIT 32.4 % (36.0-48.0); MEAN CELL VOLUME 88.8 fl (80.0-105.0); MEAN CORPUSCULAR HGB CONC 32.7 g/dl (31.0-37.0); MEAN PLATELET VOLUME 9.7 fl (7.0-11.0); RED CELL DISTRIBUTION WIDTH 13.6 % (11.5-14.5); WHITE BLOOD COUNT 5.2 10^3/ul (4.5-11.0)
[2017-03-22 06:59] LABS: ALB/GLOB RATIO 1.3 (1.1-1.8); ALKALINE PHOSPHATASE 88 U/L (38-133); ALT/SGPT 35 U/L (7-56); AST/SGOT 32 U/L (15-39); BILIRUBIN,TOTAL 0.1 mg/dL (0.2-1.3); BLOOD UREA NITROGEN 15 mg/dL (7-21); CALCIUM 8.9 mg/dL (8.4-10.5); CARBON DIOXIDE 25 mmol/L (21-33); CHLORIDE 111 mmol/L (98-107); GFR AFRICAN-AMERICAN > 60; GLUCOSE,RANDOM 121 mg/dL (70-110); POTASSIUM 4.5 mmol/L (3.6-5.0); SODIUM 144 mmol/L (132-148); TOTAL PROTEIN 6.2 g/dL (5.8-8.3)
[2017-03-22] MEDS: Insulin Lispro 1 UNITS/0.01 ML SC SCH ×2 (07:48→12:11)
[2017-03-22] MEDS: Cholestyramine 4 gm/Pkt UD PO SCH (10:23)
[2017-03-22] MEDS: Levothyroxine 75 MCG TAB PO SCH (10:24)
[2017-03-22] MEDS: Sodium Chloride 0.9% 1,000 ML IV SCH (10:25)
[2017-03-22 12:09] VITALS: BP 151/89; RESP 20; TEMP 97.5
--- NOTE | 2017-03-22 15:09 | CP.PCM.DIS ---
<Marjan Dimas - Last Filed: 03/22/17 17:35> Provider - Provider Date of Admission: 03/20/17 14:49 Attending physician: Cori Rubio MD Primary care physician: Colleen Dang MD Consults: Neurology Dr. Echeverria Cardiology Dr. Lund Time Spent in preparation of Discharge (in minutes): 45 Hospital Course - Lab Results Lab Results: Most Recent Lab Values WBC 5.2 10^3/ul (4.5-11.0) 03/22/17 06:00 RBC 3.65 10^6/uL (3.5-6.1) 03/22/17 06:00 Hgb 10.6 g/dL (12.0-16.0) L 03/22/17 06:00 Hct 32.4 % (36.0-48.0) L 03/22/17 06:00 MCV 88.8 fl (80.0-105.0) 03/22/17 06:00 MCH 29.0 pg (25.0-35.0) 03/22/17 06:00 MCHC 32.7 g/dl (31.0-37.0) 03/22/17 06:00 RDW 13.6 % (11.5-14.5) 03/22/17 06:00 Plt Count 175 10^3/uL (120.0-450.0) 03/22/17 06:00 MPV 9.7 fl (7.0-11.0) 03/22/17 06:00 Gran % 58.3 % (50.0-68.0) 03/20/17 13:15 Lymph % (Auto) 30.5 % (22.0-35.0) 03/20/17 13:15 [place] % (Auto) 4.5 % (1.0-6.0) 03/20/17 13:15 Eos % (Auto) 6.4 % (1.5-5.0) H 03/20/17 13:15 Baso % (Auto) 0.3 % (0.0-3.0) 03/20/17 13:15 Gran # 4.54 (1.4-6.5) 03/20/17 13:15 Lymph # 2.4 (1.2-3.4) 03/20/17 13:15 [place] # 0.4 (0.1-0.6) 03/20/17 13:15 Eos # 0.5 (0.0-0.7) 03/20/17 13:15 Baso # 0.02 K/mm3 (0.0-2.0) 03/20/17 13:15 PT 10.6 Seconds (9.9-11.8) 03/20/17 13:15 INR 0.98 (0.93-1.08) 03/20/17 13:15 APTT 23.3 Seconds (23.7-30.8) L 03/20/17 13:15 D-Dimer, Quantitative 2.07 mg/L FEU (0-0.50) H 03/20/17 18:54 Sodium 144 mmol/L (132-148) 03/22/17 06:00 Potassium 4.5 mmol/L (3.6-5.0) 03/22/17 06:00 Chloride 111 mmol/L (98-107) H 03/22/17 06:00 Carbon Dioxide 25 mmol/L (21-33) 03/22/17 06:00 Anion Gap 13 (10-20) 03/22/17 06:00 BUN 15 mg/dL (7-21) 03/22/17 06:00 Creatinine 0.9 mg/dL (0.5-1.4) 03/22/17 06:00 Est GFR ( Amer) > 60 03/22/17 06:00 Est GFR (Non-Af Amer) > 60 03/22/17 06:00 POC Glucose (mg/dL) 83 mg/dL (65-110) 03/22/17 11:29 Random Glucose 121 mg/dL (70-110) H 03/22/17 06:00 Hemoglobin A1c 6.8 % (4.2-6.5) H 03/20/17 13:15 Calcium 8.9 mg/dL (8.4-10.5) 03/22/17 06:00 Total Bilirubin 0.1 mg/dL (0.2-1.3) L 03/22/17 06:00 AST 32 U/L (15-39) 03/22/17 06:00 ALT 35 U/L (7-56) 03/22/17 06:00 Alkaline Phosphatase 88 U/L (38-133) 03/22/17 06:00 Troponin I < 0.01 ng/mL 03/21/17 01:02 Total Protein 6.2 g/dL (5.8-8.3) 03/22/17 06:00 Albumin 3.6 g/dL (3.0-4.8) 03/22/17 06:00 Globulin 2.7 gm/dL 03/22/17 06:00 Albumin/Globulin Ratio 1.3 (1.1-1.8) 03/22/17 06:00 Triglycerides 369 mg/dL (35-160) H 03/20/17 13:15 Cholesterol 190 mg/dL (130-200) 03/20/17 13:15 LDL Cholesterol Direct 48 mg/dL (0-129) 03/20/17 13:15 HDL Cholesterol 51 mg/dL (29-60) 03/20/17 13:15 Blood Type O POSITIVE 03/20/17 13:15 Antibody Screen Negative 03/20/17 13:15 BBK History Checked Patient has bt 03/20/17 13:15 - Hospital Course Hospital Course: Upon Admission 62 year old Japanese speaking female PMHx of Osteoporosis, emphysema, DM, HTN, HLD, CVA, hypothyroidism, and kidney stones presented to ED with chest tightness and pressure, R sided facial droop, and R sided arm and leg weakness. Patient has been evaluated multiple times in the past for stroke-like symptoms, and has had multiple head CTs, none of which showed acute intracranial changes. Of note, she has also recently treated for recent UTI, cardiac cath, TIA, and had cystoscopy 2 days ago and prescribed Flomax and Nitrofurantoin. Patient was admitted to [facility]. Neurology Dr. Echeverria and Cardiology Dr. Lund consulted. Patient had negative troponin x 3 and EKG had no acute changes. Patient's head CT was unremarkable and carotid artery u/s showed b/l 0-19% proximal ICA stenosis; antegrade flow b/l vertebral arteries. Brain MRI was unremarkable. Patient's elevated D dimer was worked up and CTA was negative for PE and b/l venous dopplers were negative for DVT. Neurology recommended outpatient follow up and continuation of ASA and Lipitor. Patient's Echo showed EF shows 55% and cardiology recommended continuation of conservative medical management after review of coronary angiogram. Patient was evaluated by physical therapy who recommended TCU/KUN. On 03/22 patient signed out against medical advice. Risks of leaving were discussed in great detail with patient and daughter at bedside however patient was adamant on leaving. Patient refused further medical intervention, examination, and gait therapy that was recommended by hospitalist and physical therapy. Nursing witnessed conversation and AMA paperwork is in patient's chart. Discharge Exam - Additional Findings Additional findings: Patient signed out AMA and refused examination Discharge Plan - Follow Up Plan Condition: FAIR Disposition: AGAINST MEDICAL ADVICE Instructions: Chest Pain (ED) Additional Instructions: 1. Follow up with neurology within 1 week 2. Follow up with cardiology within 1 week 3. Follow up with PMD within 1 week 4. Start [id number] aspirin 81 mg once daily 5. Take medications as prescribed 6. Return to ED if symptoms or condition worsens. Referrals: Francisco Lund MD [Staff Provider] - Colleen Dang MD [Primary Care Provider] - Hardik Echeverria MD [Staff Provider] - <Cori Rubio - Last Filed: 03/22/17 17:50> Provider - Provider Date of Admission: 03/20/17 14:49 Attending physician: Cori Rubio MD Primary care physician: Colleen Dang MD Hospital Course - Lab Results Lab Results: Most Recent Lab Values WBC 5.2 10^3/ul (4.5-11.0) 03/22/17 06:00 RBC 3.65 10^6/uL (3.5-6.1) 03/22/17 06:00 Hgb 10.6 g/dL (12.0-16.0) L 03/22/17 06:00 Hct 32.4 % (36.0-48.0) L 03/22/17 06:00 MCV 88.8 fl (80.0-105.0) 03/22/17 06:00 MCH 29.0 pg (25.0-35.0) 03/22/17 06:00 MCHC 32.7 g/dl (31.0-37.0) 03/22/17 06:00 RDW 13.6 % (11.5-14.5) 03/22/17 06:00 Plt Count 175 10^3/uL (120.0-450.0) 03/22/17 06:00 MPV 9.7 fl (7.0-11.0) 03/22/17 06:00 Gran % 58.3 % (50.0-68.0) 03/20/17 13:15 Lymph % (Auto) 30.5 % (22.0-35.0) 03/20/17 13:15 [place] % (Auto) 4.5 % (1.0-6.0) 03/20/17 13:15 Eos % (Auto) 6.4 % (1.5-5.0) H 03/20/17 13:15 Baso % (Auto) 0.3 % (0.0-3.0) 03/20/17 13:15 Gran # 4.54 (1.4-6.5) 03/20/17 13:15 Lymph # 2.4 (1.2-3.4) 03/20/17 13:15 [place] # 0.4 (0.1-0.6) 03/20/17 13:15 Eos # 0.5 (0.0-0.7) 03/20/17 13:15 Baso # 0.02 K/mm3 (0.0-2.0) 03/20/17 13:15 PT 10.6 Seconds (9.9-11.8) 03/20/17 13:15 INR 0.98 (0.93-1.08) 03/20/17 13:15 APTT 23.3 Seconds (23.7-30.8) L 03/20/17 13:15 D-Dimer, Quantitative 2.07 mg/L FEU (0-0.50) H 03/20/17 18:54 Sodium 144 mmol/L (132-148) 03/22/17 06:00 Potassium 4.5 mmol/L (3.6-5.0) 03/22/17 06:00 Chloride 111 mmol/L (98-107) H 03/22/17 06:00 Carbon Dioxide 25 mmol/L (21-33) 03/22/17 06:00 Anion Gap 13 (10-20) 03/22/17 06:00 BUN 15 mg/dL (7-21) 03/22/17 06:00 Creatinine 0.9 mg/dL (0.5-1.4) 03/22/17 06:00 Est GFR ( Amer) > 60 03/22/17 06:00 Est GFR (Non-Af Amer) > 60 03/22/17 06:00 POC Glucose (mg/dL) 83 mg/dL (65-110) 03/22/17 11:29 Random Glucose 121 mg/dL (70-110) H 03/22/17 06:00 Hemoglobin A1c 6.8 % (4.2-6.5) H 03/20/17 13:15 Calcium 8.9 mg/dL (8.4-10.5) 03/22/17 06:00 Total Bilirubin 0.1 mg/dL (0.2-1.3) L 03/22/17 06:00 AST 32 U/L (15-39) 03/22/17 06:00 ALT 35 U/L (7-56) 03/22/17 06:00 Alkaline Phosphatase 88 U/L (38-133) 03/22/17 06:00 Troponin I < 0.01 ng/mL 03/21/17 01:02 Total Protein 6.2 g/dL (5.8-8.3) 03/22/17 06:00 Albumin 3.6 g/dL (3.0-4.8) 03/22/17 06:00 Globulin 2.7 gm/dL 03/22/17 06:00 Albumin/Globulin Ratio 1.3 (1.1-1.8) 03/22/17 06:00 Triglycerides 369 mg/dL (35-160) H 03/20/17 13:15 Cholesterol 190 mg/dL (130-200) 03/20/17 13:15 LDL Cholesterol Direct 48 mg/dL (0-129) 03/20/17 13:15 HDL Cholesterol 51 mg/dL (29-60) 03/20/17 13:15 Blood Type O POSITIVE 03/20/17 13:15 Antibody Screen Negative 03/20/17 13:15 BBK History Checked Patient has bt 03/20/17 13:15 Discharge Exam - Head Exam Additional comments: see AM note's physical exam Attending/Attestation - Attestation I have personally seen and examined this patient.: Yes I have fully participated in the care of the patient.: Yes I have reviewed all pertinent clinical information, including history, physical exam and plan: Yes Notes (Text): 03/22/17 17:48 62 year old female with past medical history of TIA, hypertension, diabetes and hypothyroidism who presented with complaint of right sided weakness and facial droop from possible TIA. CT head, MRI brain and carotid dopplers were negative. She is on aspirin and statin. She also complained of chest pain. Serial cardiac enzymes are negative and ACS was ruled out. She was seen by PT who recommended KUN/TCU as she still has some weakness and gait unsteadiness. However she refused to go to KUN and did not wish to wait for home services. She did not want PT follow up and signed out against medical advice. Cori Rubio MD Hospitalist.
[2017-03-22 15:29] VITALS: PULSE 61
[2017-03-23] MEDS ORDERED: Ergocalciferol 50,000 Intl Units Cap PO SCH (10:00)
== END 2017-03-22 15:28 | disposition left against medical advice (07) | DRG 832 ==
LOC: ED 12:52 → ERH 14:49 → 2RSO 16:12 → 2RNO 16:14
PROVIDERS: ADMIT Internal Medicine; ATTEND Internal Medicine
DX: G45.9 Transient cerebral ischemic attack, unspecified (principal); N39.0 Urinary tract infection, site not specified; J43.9 Emphysema, unspecified; I10 Essential (primary) hypertension; R07.9 Chest pain, unspecified; R29.702 NIHSS score 2; M81.0 Age-related osteoporosis without current pathological fracture; R29.810 Facial weakness; E78.5 Hyperlipidemia, unspecified; E11.9 Type 2 diabetes mellitus without complications; E03.9 Hypothyroidism, unspecified; K44.9 Diaphragmatic hernia without obstruction or gangrene; F17.200 Nicotine dependence, unspecified, uncomplicated; Z79.84 Long term (current) use of oral hypoglycemic drugs; Z87.442 Personal history of urinary calculi

== ENCOUNTER 2017-06-17 16:49 | Emergency (ER) | payer OTHER, MEDICAID ==
[2017-06-17 16:49] VITALS: BMI 23.0
[2017-06-17 16:57] VITALS: BP 144/86; PULSE 81; RESP 18; TEMP 98.3; O2SAT 98
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
--- NOTE | 2017-06-18 08:09 | CARD ---
APPROVED REPORT EKG Measurement Heart [id number] <Conclusion> Normal sinus rhythm Normal ECG
== END 2017-06-17 17:52 | disposition home or self-care (01) ==
LOC: ED 16:49
DX: S20.211A Contusion of right front wall of thorax, initial encounter (principal); S40.021A Contusion of right upper arm, initial encounter; V49.49XA Driver injured in collision with other motor vehicles in traffic accident, initial encounter; Y92.410 Unspecified street and highway as the place of occurrence of the external cause

== ENCOUNTER 2017-07-02 14:13 | Emergency (ER) | payer MEDICAID, OTHER ==
[2017-07-02 14:15] VITALS: BMI 23.0
[2017-07-02 15:14] VITALS: RESP 18; TEMP 98.4; O2SAT 99
[2017-07-02 15:21] VITALS: BP 138/61; PULSE 71
--- NOTE | 2017-07-02 15:50 | ED PDOC ---
Arrival/HPI - General Historian: Patient, Family (Daughter) - General Chief Complaint: Chest Pain Time Seen by Provider: 07/02/17 14:24 - History of Present Illness Narrative History of Present Illness (Text): Patient is a 62 year old female with PMHx of TIA x 2, HLD, kidney stones, Hypothyroidism, HTN, osteoporosis, emphysema, and hiatal hernia who presents with sharp/achy, mid-sternal, 8/10, reproducible chest pain that started at 12: 30 today. Patient states the pain is non-radiating but is associated with left arm pain with slight tingling in the fingers. She denies any focal muscle weakness of sensory loss. Her pain is aggravated with deep inspiration. She cannot identify any relieving factors. Patient also complains of lateral neck pain. She denies any SOB. She does complain of slight headache and dizziness. Note: In February patient had elevated d-dimer with negative CTA. Patient had cardiac workup which was negative; and cardiac cath which was unremarkable. Her carotid US in February showed 0-19% stenosis of the proximal ICA. MRI was also unremarkable. ROS POSITIVES: midsternal chest pain, blurry vision, headache, dizziness, diffuse abdominal pain, lethargy, NEGATIVES: SOB, Vomiting, changes in bowel habits, urinary symptoms, focal muscle weakness, sensory loss, palpitations PMHx: TIA x 2, HLD, kidney stones, Hypothyroidism, HTN, osteoporosis, emphysema , and hiatal hernia PSHx: cardiac cath (February), Herniated Disk (2000) Allergies: NKDA Social Hx: Denies tobacco, alcohol, or illicit drug use Hos: February 2017 for TIA and Chest Pain R/O ACS FamHx: Sister has HTN and unspecified thyroid disease Meds: Reviewed. Patient states her meds are the same as last visit except she no longer takes lisinopril and her stat was changed ti Atorvostatin 40 HS (Elda Kaye) Past Medical History - Provider Review Nursing Documentation Reviewed: Yes - Past History Past History: Non-Contributing - Infectious Disease Hx of Infectious Diseases: None - Tetanus Immunization Tetanus Immunization: Unknown - Reproductive Menopause: Yes - Past Medical History Past Medical History: Non-Contributing - Cardiac Hx Cardiac Disorders: Yes Hx Hypertension: Yes - Pulmonary Hx Respiratory Disorders: Yes Hx Asthma: Yes Hx Emphysema: Yes - Neurological Hx Neurological Disorder: No HX Cerebrovascular Accident: Yes Hx Transient Ischemic Attacks (TIA): Yes - HEENT Hx HEENT Disorder: Yes Other/Comment: left eye scraping 10/2016 - Renal Hx Renal Disorder: No Hx Kidney Stones: Yes (right) - Endocrine/Metabolic Hx Endocrine Disorders: Yes Hx Diabetes Mellitus Type 2: Yes Hx Hypothyroidism: Yes - Hematological/Oncological Hx Blood Disorders: No - Integumentary Hx Dermatological Disorder: No - Musculoskeletal/Rheumatological Hx Musculoskeletal Disorders: Yes Hx Arthritis: Yes Hx Osteoarthritis: Yes Hx Osteoporosis: Yes - Gastrointestinal Hx Gastrointestinal Disorders: No - Genitourinary/Gynecological Hx Genitourinary Disorders: No - Psychiatric Hx Psychophysiologic Disorder: Yes Hx Bipolar Disorder: No Hx Emotional Abuse: No Hx Hallucinations: No Hx Panic Disorder: No Hx Post Traumatic Stress Disorder: No Hx Psychosis: No Hx Physical Abuse: No Hx Schizophrenia: No Hx Sexual Abuse: No Hx Substance Use: No - Surgical History Hx Orthopedic Surgery: Yes (BACK 10yrs ago) Other/Comment: breast bx - Anesthesia Hx Anesthesia: Yes Hx Anesthesia Reactions: No Hx Malignant Hyperthermia: No - Suicidal Assessment Feels Threatened In Home Enviroment: No Family/Social History - Physician Review Nursing Documentation Reviewed: Yes Family/Social History: Hypertension Smoking Status: Never Smoked Hx Alcohol 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: Yes (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) Hx Substance Use: No Hx Substance Use Treatment: No Allergies/Home Meds Allergies/Adverse Reactions: Allergies No Known Allergies Allergy (Verified 07/02/17 14:28) Home Medications: Home Meds Medication Instructions Recorded Confirmed Lisinopril [Zestril] 5 mg PO DAILY 04/17/16 03/20/17 Albuterol 0.083% [Albuterol 0.083% 0.083 inh INH PRN PRN 03/20/17 03/20/17 Inhal Sandra (2.5 mg/3 ml) UD] Albuterol HFA [Ventolin HFA 90 2 puff INH PRN PRN 03/20/17 03/20/17 mcg/actuation (8 g)] Ergocalciferol (Vitamin D2) 50,000 unit PO QWK 03/20/17 03/20/17 [Vitamin D2] Ipratropium 0.02% [Atrovent] 1 tub INH PRN PRN 03/20/17 03/20/17 Levothyroxine [Synthroid] 75 mcg PO DAILY 03/20/17 03/20/17 MetFORMIN [glucOPHAGE] 500 mg PO BID 03/20/17 03/20/17 Nitrofurantoin Macrocrystal 100 mg PO DAILY 03/20/17 03/20/17 [Nitrofurantoin Macrocrystals] Iasyr-5-Ctpe Ethyl Esters [OMEGA 3] 1,000 mg PO DAILY 03/20/17 03/20/17 Simvastatin [Zocor] 20 mg PO DAILY 03/20/17 03/20/17 Review of Systems - Physician Review All systems were reviewed & negative as marked: Yes (As per HPI) - Review of Systems Respiratory: Normal. absent: SOB Genitourinary Female: Normal. absent: Dysuria Physical Exam Vital Signs Reviewed: Yes Temperature: Afebrile Blood Pressure: Hypotensive Pulse: Regular Respiratory Rate: Normal Appearance: Positive for: Well-Appearing Pain Distress: Moderate Mental Status: Positive for: Alert and Oriented X 3 - Systems Exam Head: Present: Atraumatic, Normocephalic Pupils: Present: PERRL Extroacular Muscles: Present: EOMI Conjunctiva: Present: Normal Ears: Present: Normal Mouth: Present: Moist Mucous Membranes Nose (External): Present: Atraumatic Neck: Present: Normal Range of Motion, Paraspinal Tenderness, Other (left lateral tenderness). No: JVD, Lymphadenopathy, Bruit Respiratory/Chest: Present: Clear to Auscultation, Tender to Palpation. No: Wheezes, Rales, Rhonchi Cardiovascular: Present: Regular Rate and Rhythm, Normal S1, S2, Peripheal Pulses Present. No: Murmurs, Tachycardic, Bradycardic, Rub, Gallop, Muffled Abdomen: Present: Tenderness (Diffuse ), Normal Bowel Sounds. No: Distention, Peritoneal Signs, Rebound, Guarding, McBurney's Point Tender, Rovsing's Sign Present, Mass/Organomegaly Back: Present: CVA Tenderness, Paraspinal Tenderness Upper Extremity: Present: Normal Inspection, NORMAL PULSES, Capillary Refill < 2s Lower Extremity: Present: Normal Inspection. No: Swelling Neurological: Present: GCS=15, Speech Normal Skin: Present: Warm, Dry, Normal Color Lymphatic: No: Cervical Adenopathy Psychiatric: Present: Alert, Oriented x 3, Normal Affect, Normal Mood Vital Signs Temp Pulse Resp BP Pulse Ox 07/02/17 15:21 71 18 138/61 99 07/02/17 14:15 98.4 F 76 18 140/56 L 99 Medical Decision Making ED Course and Treatment: 62 year old female with PMHx of TIA x 2, HLD, kidney stones, Hypothyroidism, HTN , osteoporosis, emphysema, and hiatal hernia who presents with chest pain. --EKG --CXR --CMP/CBC --Lipase --Magnesium --Cardiac ISO --BNP --ASA 325 --Reassess and Disposition Reassessment: EKG: NSR w/ no ST or T wave changes. --CXR: Pending --CMP: WNL --CBC: Unremarkable --Lipase: WNL --Magnesium: Normal at 2 --Cardiac ISO: NEGATIVE --BNP: WNL @ 111 --UA: NEGATIVE Dispo: Admit for observation (CP R/O ACS) Reassessment II: --CXR: No active disease Process Dispo: Patient is refusing inpatient admission and states that she would like to go home. Risk and benefits of leaving have been thoroughly explained to patient and her daughter. She has been advised to follow up with her regular physician and to return to the ED immediately if her symptoms return or worsen. (Elda Kaye) Admission was rec for further eval of chest pain however pt does not want to stay. risks/benefits were explained and pt v/u and still wishes to leave. I believe she has the ability to make decisions for herself at this time. She understands she may return at any time should she change her mind. (Adeel Caceres) - Lab Interpretations Lab Results: 07/02/17 16:00 07/02/17 16:00 Lab Results 07/02/17 16:00: Urine Color Yellow, Urine Appearance Clear, Urine pH 7.0, Ur Specific [place] 1.010, Urine Protein Negative, Urine Glucose (UA) Negative, Urine Ketones Negative, Urine Blood Negative, Urine Nitrate Negative, Urine Bilirubin Negative, Urine Urobilinogen 0.2, Ur Leukocyte Esterase Negative 07/02/17 16:00: Sodium 146, Potassium 4.1, Chloride 107, Carbon Dioxide 30, Anion Gap 13, BUN 17, Creatinine 0.9, Est GFR ( Amer) > 60, Est GFR (Non- Af Amer) > 60, Random Glucose 103, Calcium 10.1, Magnesium 2.0, Total Bilirubin 0.5, AST 26, ALT 30, Alkaline Phosphatase 111, Lactate Dehydrogenase 446, Total Creatine Kinase 86, Troponin I < 0.01, NT-Pro-B Natriuret Pep 111, Total Protein 7.6, Albumin 4.4, Globulin 3.1, Albumin/Globulin Ratio 1.4, Lipase 126 07/02/17 16:00: PT 11.1, INR 1.02, APTT 29.3 07/02/17 16:00: WBC 8.3 D, RBC 4.15, Hgb 12.3, Hct 36.8, MCV 88.7, MCH 29.6, MCHC 33.4, RDW 13.5, Plt Count 215, MPV 9.7, Gran % 53.0, Lymph % (Auto) 34.8, [place] % (Auto) 4.7, Eos % (Auto) 7.0 H, Baso % (Auto) 0.5, Gran # 4.43, Lymph # 2.9, [place] # 0.4, Eos # 0.6, Baso # 0.04 - RAD Interpretation Radiology Orders: 07/02/17 16:30 CXR [CHEST PORTABLE] [RAD] Stat - Medication Orders Current Medication Orders: Discontinued Medications Aspirin (Aspirin) 325 mg PO STAT STA Stop: 07/02/17 15:18 Last Admin: 07/02/17 16:10 Dose: 325 mg Disposition/Present on Arrival - Present on Arrival Any Indicators Present on Arrival: No History of DVT/PE: No History of Uncontrolled Diabetes: No Urinary Catheter: No History of Decub. Ulcer: No History Surgical Site Infection Following: None - Disposition Have Diagnosis and Disposition been Completed?: Yes Disposition Time: 17:16 Patient Plan: Other (Patient refused admit for observation. Is leaving AMA) - Disposition Diagnosis: Chest pain Disposition: AGAINST MEDICAL ADVICE Condition: STABLE Discharge Instructions (ExitCare): Chest Pain (ED) Additional Instructions: You have agreed to leave against medical advice (AMA) Please return to the ED if your symptoms worsen or exacerbate. Please follow up with your primary medical physician. Referrals: Taye Mckinney MD [Primary Care Provider] - Follow up with primary Forms: [employer] ([place])
[2017-07-02 16:18] LABS: BASO # 0.04 K/mm3 (0.0-2.0); BASO % 0.5 % (0.0-3.0); EOS # 0.6 (0.0-0.7); GRAN # 4.43 (1.4-6.5); HEMATOCRIT 36.8 % (36.0-48.0); LYMPH # 2.9 (1.2-3.4); LYMPH % 34.8 % (22.0-35.0); MEAN CELL VOLUME 88.7 fl (80.0-105.0); MEAN CORPUSCULAR HEMOGLOBIN 29.6 pg (25.0-35.0); MEAN CORPUSCULAR HGB CONC 33.4 g/dl (31.0-37.0); MEAN PLATELET VOLUME 9.7 fl (7.0-11.0); MONO # 0.4 (0.1-0.6); MONO % 4.7 % (1.0-6.0); RED CELL DISTRIBUTION WIDTH 13.5 % (11.5-14.5); WHITE BLOOD COUNT 8.3 10^3/ul (4.5-11.0)
[2017-07-02 16:25] LABS: URINE BILIRUBIN NEGATIVE (NEGATIVE); URINE BLOOD NEGATIVE (NEGATIVE); URINE GLUCOSE (UA) NEGATIVE (NEGATIVE); URINE KETONE NEGATIVE (NEGATIVE); URINE LEUKOCYTE ESTERASE NEGATIVE Leu/uL (NEGATIVE); URINE PROTEIN NEGATIVE mg/dL (<30 mg/dL); URINE UROBILINOGEN 0.2 E.U./dL (<1 E.U./dL)
[2017-07-02 16:26] LABS: ALB/GLOB RATIO 1.4 (1.1-1.8); ALKALINE PHOSPHATASE 111 U/L (38-126); ALT/SGPT 30 U/L (7-56); AST/SGOT 26 U/L (14-36); BILIRUBIN,TOTAL 0.5 mg/dL (0.2-1.3); BLOOD UREA NITROGEN 17 mg/dL (7-21); CALCIUM 10.1 mg/dL (8.4-10.5); CARBON DIOXIDE 30 mmol/L (21-33); CHLORIDE 107 mmol/L (98-107); GFR AFRICAN-AMERICAN > 60; GLUCOSE,RANDOM 103 mg/dL (70-110); LIPASE 126 U/L (23-300); POTASSIUM 4.1 mmol/L (3.6-5.0); SODIUM 146 mmol/L (132-148); TOTAL PROTEIN 7.6 g/dL (5.8-8.3); URINE APPEARANCE CLEAR (CLEAR); URINE COLOR YELLOW (YELLOW)
[2017-07-02 16:28] LABS: INR 1.02 (0.93-1.08); PARTIAL THROMBOPLASTIN TIME 29.3 Seconds (25.1-36.5)
[2017-07-02 16:37] LABS: TROPONIN I < 0.01 ng/mL
--- NOTE | 2017-07-02 16:53 | RAD ---
HISTORY: chest pain COMPARISON: 03/20/2017 FINDINGS: LUNGS: No active pulmonary disease. Study rotated rightwardly PLEURA: No significant pleural effusion identified, no pneumothorax apparent. CARDIOVASCULAR: Normal. OSSEOUS STRUCTURES: No significant abnormalities. VISUALIZED UPPER ABDOMEN: Normal. OTHER FINDINGS: None. IMPRESSION: No active disease.
--- NOTE | 2017-07-02 19:39 | CARD ---
APPROVED REPORT EKG Measurement Heart [id number] <Conclusion> Normal sinus rhythm Normal ECG
== END 2017-07-02 17:30 | disposition left against medical advice (07) ==
LOC: ED 14:13
DX: R07.9 Chest pain, unspecified (principal); I10 Essential (primary) hypertension; Z86.73 Personal history of transient ischemic attack (TIA), and cerebral infarction without residual deficits

== ENCOUNTER 2017-07-26 13:20 | Emergency (ER) | payer MEDICAID ==
[2017-07-26 13:21] VITALS: BMI 23.0
[2017-07-26 13:30] VITALS: TEMP 98.1; O2SAT 97
[2017-07-26] MEDS ORDERED: Lidocaine 1% Inj (20ml) ONE (13:57)
--- NOTE | 2017-07-26 13:57 | ED PDOC ---
Arrival/HPI - General Chief Complaint: Finger,Hand,&Wrist Time Seen by Provider: 07/26/17 13:40 Historian: Patient, Family (daughter) - History of Present Illness Narrative History of Present Illness (Text): 07/26/17 13:56 This 62 yo female with pmh DM, hypothyroidism, hyperlipedemia, presents to this ED c/o left 3rd finger tip pain x 1 day. Patient stated pain is causing her to feel pain on left thumb. Patient denies recent trauma, weakness, paresthesias, drainage, skin rash, streaking erythema, or other somatic complains. 07/26/17 15:54 Patient admits bitting her fingernails at all time. Time/Duration: Other (see hpi) Context: Home Past Medical History - Provider Review Nursing Documentation Reviewed: Yes - Past History Past History: Non-Contributing - Infectious Disease Hx of Infectious Diseases: None - Tetanus Immunization Tetanus Immunization: Unknown - Past Medical History Past Medical History: Non-Contributing - Cardiac Hx Cardiac Disorders: Yes Hx Hypertension: Yes - Pulmonary Hx Respiratory Disorders: Yes Hx Asthma: Yes Hx Emphysema: Yes - Neurological Hx Neurological Disorder: No HX Cerebrovascular Accident: Yes Hx Transient Ischemic Attacks (TIA): Yes - HEENT Hx HEENT Disorder: Yes Other/Comment: left eye scraping 10/2016 - Renal Hx Renal Disorder: No Hx Kidney Stones: Yes (right) - Endocrine/Metabolic Hx Endocrine Disorders: Yes Hx Diabetes Mellitus Type 2: Yes Hx Hypothyroidism: Yes - Hematological/Oncological Hx Blood Disorders: No - Integumentary Hx Dermatological Disorder: No - Musculoskeletal/Rheumatological Hx Musculoskeletal Disorders: Yes Hx Arthritis: Yes Hx Osteoarthritis: Yes Hx Osteoporosis: Yes - Gastrointestinal Hx Gastrointestinal Disorders: No - Genitourinary/Gynecological Hx Genitourinary Disorders: No - Psychiatric Hx Psychophysiologic Disorder: Yes Hx Bipolar Disorder: No Hx Emotional Abuse: No Hx Hallucinations: No Hx Panic Disorder: No Hx Post Traumatic Stress Disorder: No Hx Psychosis: No Hx Physical Abuse: No Hx Schizophrenia: No Hx Sexual Abuse: No Hx Substance Use: No - Surgical History Hx Orthopedic Surgery: Yes (BACK 10yrs ago) Other/Comment: breast bx - Anesthesia Hx Anesthesia: Yes Hx Anesthesia Reactions: No Hx Malignant Hyperthermia: No - Suicidal Assessment Feels Threatened In Home Enviroment: No Family/Social History - Physician Review Nursing Documentation Reviewed: Yes Family/Social History: Other (noncontributory) Smoking Status: Never Smoked Hx Alcohol Use: Yes (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) Hx Substance Use: No Hx Substance Use Treatment: No Allergies/Home Meds Allergies/Adverse Reactions: Allergies No Known Allergies Allergy (Verified 07/26/17 13:25) Home Medications: Home Meds Medication Instructions Recorded Confirmed Albuterol 0.083% [Albuterol 0.083% 0.083 inh INH PRN PRN 03/20/17 07/26/17 Inhal Sandra (2.5 mg/3 ml) UD] Albuterol HFA [Ventolin HFA 90 2 puff INH PRN PRN 03/20/17 07/26/17 mcg/actuation (8 g)] Levothyroxine [Synthroid] 75 mcg PO DAILY 03/20/17 07/26/17 MetFORMIN [glucOPHAGE] 500 mg PO BID 03/20/17 07/26/17 [id number] Ethyl Esters [OMEGA 3] 1,000 mg PO DAILY 03/20/17 07/26/17 Atorvastatin [Lipitor] 40 mg PO HS 07/26/17 07/26/17 Review of Systems - Review of Systems Constitutional: Normal. absent: Fatigue, Weight Change, Fevers Eyes: Normal ENT: Normal Respiratory: Normal Cardiovascular: Normal Gastrointestinal: Normal Genitourinary Female: Normal Musculoskeletal: Other (see hpi) Skin: Normal Neurological: Normal Endocrine: Normal Hemo/Lymphatic: Normal Psychiatric: Normal Physical Exam Vital Signs Temp Pulse Resp BP Pulse Ox 07/26/17 13:29 98.1 F 88 16 115/73 97 Temperature: Afebrile Blood Pressure: Normal Pulse: Regular Respiratory Rate: Normal Appearance: Positive for: Well-Appearing, Non-Toxic, Comfortable Pain Distress: None Mental Status: Positive for: Alert and Oriented X 3 - Systems Exam Head: Present: Atraumatic, Normocephalic Pupils: Present: PERRL Extroacular Muscles: Present: EOMI Conjunctiva: Present: Normal Mouth: Present: Moist Mucous Membranes Neck: Present: Normal Range of Motion Back: Present: Normal Inspection Upper Extremity: Present: Normal ROM, NORMAL PULSES, Neurovascularly Intact, Capillary Refill < 2s, Other (no streaking erythema on left 3rd finger, thumb or left hand or forearm). No: Cyanosis, Edema, Erythema, Temperature Abnormalties Lower Extremity: Present: Normal Inspection, Normal ROM. No: Edema Neurological: Present: GCS=15, CN II-XII Intact, Speech Normal, Motor Func Grossly Intact, Normal Sensory Function, Normal Cerebellar Funct, Gait Normal Skin: Present: Warm, Dry, Normal Color. No: Rashes Psychiatric: Present: Alert, Oriented x 3, Normal Insight, Normal Concentration Medical Decision Making ED Course and Treatment: 07/26/17 15:48 Re-evaluation. Patient feels better. Discussed results and plan with patient who expresses understanding. All questions answered and there is agreement with the plan to discharge home with instructions. Patient stable for discharge. Return if symptoms persist or worsen. A smal I&D was performed at left 3rd finger tip. ABX were ordered. Patient recommended to return to ED in 2 days for wound recheck. Sooner if infection worsen. Patient understood plan. Re-evaluation Time: 15:49 Reassessment Condition: Re-examined, Improved - RAD Interpretation Radiology Orders: 07/26/17 13:56 HAND LEFT 3RD DIGIT (FINGER) [RAD] Stat Disposition/Present on Arrival - Present on Arrival Any Indicators Present on Arrival: No History of DVT/PE: No History of Uncontrolled Diabetes: No Urinary Catheter: No History of Decub. Ulcer: No History Surgical Site Infection Following: None - Disposition Have Diagnosis and Disposition been Completed?: Yes Diagnosis: Paronychia of finger Disposition: HOME/ ROUTINE Disposition Time: 15:49 Patient Plan: Discharge Patient Problems: Current Active Problems Problem Status Onset Paronychia of finger Acute Condition: GOOD Discharge Instructions (ExitCare): Paronychia (ED) Additional Instructions: Call private doctor for wound check in 2 days. Return to emergency if unable to see your doctor in 2 days, or sooner if infection worsen. Keep wound clean and dry till evaluated by doctor in 2 days. Take OTC tylenol for pain as needed. Stop bitting finger nails Prescriptions: Cephalexin [Keflex] 500 mg PO QID #28 capsule Sulfamethoxazole/Trimethoprim [Bactrim DS 800 mg-160 mg] 1 tab PO BID #20 tab Referrals: Lauryn Silva, [Non-Staff] - Follow up with primary [facility] [Outside] - Follow up with primary [facility] [Outside] - Follow up with primary Forms: [employer] ([place])
[2017-07-26] MEDS ORDERED: Tmp-Smz 800 mg-160 mg DS Tab PO STA (15:50)
[2017-07-26 16:32] VITALS: BP 117/83; PULSE 70; RESP 18
--- NOTE | 2017-07-26 16:56 | RAD ---
PROCEDURE: Left middle finger radiographs dated 07/26/2017. HISTORY: pain COMPARISON: None. TECHNIQUE: AP radiograph of the left hand, as well as spot oblique and lateral images of left middle finger were obtained. FINDINGS: LEFT MIDDLE FINGER: Left middle finger normal, without fracture of focal lesion. Remainder of the left hand (as seen on the AP view) is grossly unremarkable. JOINTS: Joint spaces appear relatively preserved. No significant osteoarthritis. SOFT TISSUES: Soft tissues appear grossly unremarkable without evidence of subcutaneous air or radiopaque foreign bodies OTHER FINDINGS: None. IMPRESSION: No obvious acute displaced fracture nor dislocation. If symptoms persist or occult fracture suspected clinically recommend repeat radiographs 5-10 days as most fractures should become radiographically evident in this timeframe.
== END 2017-07-26 16:32 | disposition home or self-care (01) ==
LOC: ED 13:20
DX: L03.012 Cellulitis of left finger (principal)

== ENCOUNTER 2017-07-28 13:31 | Emergency (ER) | payer MEDICAID ==
[2017-07-28 13:32] VITALS: BMI 23.0
[2017-07-28 13:41] VITALS: TEMP 98.4; O2SAT 98
--- NOTE | 2017-07-28 14:37 | ED PDOC ---
Arrival/HPI - General Chief Complaint: Abnormal Skin Integrity Time Seen by Provider: 07/28/17 13:45 Historian: Patient - History of Present Illness Narrative History of Present Illness (Text): 07/28/17 14:20 This 62 yo female presents to this ED for wound check. Patient stated she was seen in this ED x 2 days ago for finger tip infection. Patient is diabetic, so she was recommended to return to ED after 2 days for wound recheck. Patient denies new complains. Patient stated finger infection has improved. Time/Duration: Other (see hpi) Context: Home Past Medical History - Provider Review Nursing Documentation Reviewed: Yes - Past History Past History: Non-Contributing - Infectious Disease Hx of Infectious Diseases: None - Tetanus Immunization Tetanus Immunization: Unknown - Past Medical History Past Medical History: Non-Contributing - Cardiac Hx Cardiac Disorders: Yes Hx Hypertension: Yes - Pulmonary Hx Respiratory Disorders: Yes Hx Asthma: Yes Hx Emphysema: Yes - Neurological Hx Neurological Disorder: No HX Cerebrovascular Accident: Yes Hx Transient Ischemic Attacks (TIA): Yes - HEENT Hx HEENT Disorder: Yes Other/Comment: left eye scraping 10/2016 - Renal Hx Renal Disorder: No Hx Kidney Stones: Yes (right) - Endocrine/Metabolic Hx Endocrine Disorders: Yes Hx Diabetes Mellitus Type 2: Yes Hx Hypothyroidism: Yes - Hematological/Oncological Hx Blood Disorders: No - Integumentary Hx Dermatological Disorder: No - Musculoskeletal/Rheumatological Hx Musculoskeletal Disorders: Yes Hx Arthritis: Yes Hx Osteoarthritis: Yes Hx Osteoporosis: Yes - Gastrointestinal Hx Gastrointestinal Disorders: No - Genitourinary/Gynecological Hx Genitourinary Disorders: No - Psychiatric Hx Psychophysiologic Disorder: Yes Hx Bipolar Disorder: No Hx Emotional Abuse: No Hx Hallucinations: No Hx Panic Disorder: No Hx Post Traumatic Stress Disorder: No Hx Psychosis: No Hx Physical Abuse: No Hx Schizophrenia: No Hx Sexual Abuse: No Hx Substance Use: No - Surgical History Hx Orthopedic Surgery: Yes (BACK 10yrs ago) Other/Comment: breast bx - Anesthesia Hx Anesthesia: Yes Hx Anesthesia Reactions: No Hx Malignant Hyperthermia: No - Suicidal Assessment Feels Threatened In Home Enviroment: No Family/Social History - Physician Review Nursing Documentation Reviewed: Yes Family/Social History: Other (noncontributory) Smoking Status: Never Smoked Hx Alcohol Use: Yes (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) Hx Substance Use: No Hx Substance Use Treatment: No Allergies/Home Meds Allergies/Adverse Reactions: Allergies No Known Allergies Allergy (Verified 07/28/17 13:34) Home Medications: Home Meds Medication Instructions Recorded Confirmed Albuterol HFA [Ventolin HFA 90 2 puff INH PRN PRN 03/20/17 07/28/17 mcg/actuation (8 g)] Levothyroxine [Synthroid] 75 mcg PO DAILY 03/20/17 07/28/17 MetFORMIN [glucOPHAGE] 500 mg PO BID 03/20/17 07/28/17 Howep-6-Hyyt Ethyl Esters [OMEGA 3] 1,000 mg PO DAILY 03/20/17 07/28/17 Atorvastatin [Lipitor] 40 mg PO HS 07/26/17 07/28/17 Review of Systems - Review of Systems Constitutional: Normal Eyes: Normal ENT: Normal Respiratory: Normal Cardiovascular: Normal Gastrointestinal: Normal Genitourinary Female: Normal Musculoskeletal: Normal Skin: Other (see hpi) Neurological: Normal Endocrine: Normal Hemo/Lymphatic: Normal Psychiatric: Normal Physical Exam Vital Signs Temp Pulse Resp BP Pulse Ox 07/28/17 14:42 70 17 108/70 98 07/28/17 13:38 98.4 F 73 16 100/64 98 Temperature: Afebrile Blood Pressure: Normal Pulse: Regular Respiratory Rate: Normal Appearance: Positive for: Well-Appearing, Non-Toxic, Comfortable Pain Distress: None Mental Status: Positive for: Alert and Oriented X 3 - Systems Exam Head: Present: Atraumatic, Normocephalic Mouth: Present: Moist Mucous Membranes Neck: Present: Normal Range of Motion Upper Extremity: Present: Normal Inspection, Normal ROM, NORMAL PULSES, Neurovascularly Intact, Capillary Refill < 2s, Other ((+) left 2nd finger tip wound is healing well. No erythema, or drainage. No swelling). No: Tenderness , Swelling, Erythema, Temperature Abnormalties Lower Extremity: Present: Normal Inspection, Normal ROM Neurological: Present: GCS=15, CN II-XII Intact, Speech Normal Psychiatric: Present: Alert, Oriented x 3 Medical Decision Making ED Course and Treatment: 07/28/17 14:34 Re-evaluation. Patient feels better. Discussed results and plan with patient who expresses understanding. All questions answered and there is agreement with the plan to discharge home with instructions. Patient stable for discharge. Return if symptoms persist or worsen. Re-evaluation Time: 14:34 Reassessment Condition: Re-examined, Improved - Procedure PROCEDURE NOTE (Text): Wound was clean and dressing was applied by staging technician Disposition/Present on Arrival - Present on Arrival Any Indicators Present on Arrival: No History of DVT/PE: No History of Uncontrolled Diabetes: No Urinary Catheter: No History of Decub. Ulcer: No History Surgical Site Infection Following: None - Disposition Have Diagnosis and Disposition been Completed?: Yes Diagnosis: Encounter for wound re-check Disposition: HOME/ ROUTINE Disposition Time: 14:35 Condition: IMPROVED Discharge Instructions (ExitCare): Acute Wound Care (ED) Additional Instructions: Call private doctor for follow up visit in 1-2 days. Continue with antibiotic. Clean wound daily with soap and water. Return to emergency if wound gets infected, increasing pain, or drainage from wound. Referrals: Taye Mckinney MD [Family Provider] - Follow up with primary Forms: [employer] ([place])
[2017-07-28 14:44] VITALS: BP 108/70; PULSE 70; RESP 17
== END 2017-07-28 14:44 | disposition home or self-care (01) ==
LOC: ED 13:31
DX: Z51.89 Encounter for other specified aftercare (principal)

== ENCOUNTER 2017-08-16 09:27 | Emergency (ER) | payer MEDICAID ==
[2017-08-16 09:28] VITALS: BMI 23.0
[2017-08-16] MEDS ORDERED: Sodium Chloride 0.9% 1,000 ML IV STA (09:56)
[2017-08-16 10:21] VITALS: TEMP 98; O2SAT 97
[2017-08-16 10:29] LABS: URINE BILIRUBIN NEGATIVE (NEGATIVE); URINE BLOOD NEGATIVE (NEGATIVE); URINE GLUCOSE (UA) NEGATIVE (NEGATIVE); URINE LEUKOCYTE ESTERASE TRACE Leu/uL (NEGATIVE); URINE NITRATE NEGATIVE (NEGATIVE); URINE PROTEIN NEGATIVE mg/dL (<30 mg/dL); URINE UROBILINOGEN 0.2 E.U./dL (<1 E.U./dL)
[2017-08-16 10:31] LABS: BASO # 0.03 [, K/mm3] (0.0-2.0); BASO % 0.4 % (0.0-3.0); EOS # 0.7 (0.0-0.7); EOS % 9.2 % (1.5-5.0); GRAN # 4.55 (1.4-6.5); GRAN % 58.9 % (50.0-68.0); HEMOGLOBIN 12.3 g/dL (12.0-16.0); LYMPH # 2.1 (1.2-3.4); LYMPH % 26.6 % (22.0-35.0); MEAN CELL VOLUME 89.4 fl (80.0-105.0); MEAN CORPUSCULAR HEMOGLOBIN 29.6 pg (25.0-35.0); MEAN CORPUSCULAR HGB CONC 33.1 g/dl (31.0-37.0); MEAN PLATELET VOLUME 10.2 fl (7.0-11.0); MONO # 0.4 (0.1-0.6); MONO % 4.9 % (1.0-6.0); RBC 4.16 [, 10^6/uL] (3.5-6.1); RED CELL DISTRIBUTION WIDTH 13.7 % (11.5-14.5); WHITE BLOOD COUNT 7.7 [, 10^3/ul] (4.5-11.0)
[2017-08-16 10:33] LABS: ALB/GLOB RATIO 1.4 (1.1-1.8); ALBUMIN 4.5 g/dL (3.0-4.8); ALT/SGPT 32 U/L (7-56); AMYLASE 83 U/L (35-125); AST/SGOT 28 U/L (14-36); BLOOD UREA NITROGEN 18 mg/dL (7-21); CALCIUM 10.2 mg/dL (8.4-10.5); GFR AFRICAN-AMERICAN > 60; GFR NON-AFRICAN AMERICAN > 60; LIPASE 107 U/L (23-300)
[2017-08-16 10:39] LABS: PARTIAL THROMBOPLASTIN TIME 29.5 Seconds (25.1-36.5); PROTHROMBIN TIME 11.5 SECONDS (9.4-12.5)
[2017-08-16 10:45] LABS: TROPONIN I < 0.01 ng/mL
[2017-08-16 10:53] LABS: URINE APPEARANCE CLEAR (CLEAR); URINE COLOR STRAW (YELLOW)
[2017-08-16 10:54] LABS: URINE BACTERIA FEW (NEG); URINE RBC 0 - 2 /hpf (0-2)
--- NOTE | 2017-08-16 12:02 | ED PDOC ---
Arrival/HPI - General Historian: Patient <Raji Vivar - Last Filed: 08/16/17 20:25> <KittyLuc chandler - Last Filed: 08/19/17 15:19> - General Chief Complaint: Abdominal Pain Time Seen by Provider: 08/16/17 09:36 - History of Present Illness Narrative History of Present Illness (Text): 08/16/17 11:59 62yo female with PMHx of Diabetes, hypertension, hyperlipdemia who present with complaint of epigastric and suprapubic abdominal pain. Reports 2episodes of diarrhea yesterday. Also reports urinary frequency since yesterday and positional dizziness. She notes that she had the same epigastric abdominal pain multiple times in the past and had a negative EGD a year ago. She describes pain as burning. She denies chest pain, SOB, heaache, visual cahnges, slurred speech, vomiting, fever, chills, sick contact, any other complaint. (Raji Vivar) Past Medical History - Provider Review Nursing Documentation Reviewed: Yes - Past History Past History: Non-Contributing - Infectious Disease Hx of Infectious Diseases: None - Tetanus Immunization Tetanus Immunization: Unknown - Reproductive Menopause: Yes - Past Medical History Past Medical History: Non-Contributing - Cardiac Hx Cardiac Disorders: Yes Hx Hypertension: Yes - Pulmonary Hx Respiratory Disorders: Yes Hx Asthma: Yes Hx Emphysema: Yes - Neurological Hx Neurological Disorder: Yes HX Cerebrovascular Accident: Yes Hx Transient Ischemic Attacks (TIA): Yes - HEENT Hx HEENT Disorder: Yes Other/Comment: left eye scraping 10/2016 - Renal Hx Renal Disorder: Yes Hx Kidney Stones: Yes (right) - Endocrine/Metabolic Hx Endocrine Disorders: Yes Hx Diabetes Mellitus Type 2: Yes Hx Hypothyroidism: Yes - Hematological/Oncological Hx Blood Disorders: No - Integumentary Hx Dermatological Disorder: No - Musculoskeletal/Rheumatological Hx Musculoskeletal Disorders: Yes Hx Arthritis: Yes Hx Back Pain: Yes Hx Osteoarthritis: Yes Hx Osteoporosis: Yes - Gastrointestinal Hx Gastrointestinal Disorders: No - Genitourinary/Gynecological Hx Genitourinary Disorders: No - Psychiatric Hx Psychophysiologic Disorder: No (denies) Hx Bipolar Disorder: No Hx Emotional Abuse: No Hx Hallucinations: No Hx Panic Disorder: No Hx Post Traumatic Stress Disorder: No Hx Psychosis: No Hx Physical Abuse: No Hx Schizophrenia: No Hx Sexual Abuse: No Hx Substance Use: No - Surgical History Hx Orthopedic Surgery: Yes (2001) Other/Comment: breast bx - Anesthesia Hx Anesthesia: Yes Hx Anesthesia Reactions: No Hx Malignant Hyperthermia: No - Suicidal Assessment Feels Threatened In Home Enviroment: No <Raji Vivar A - Last Filed: 08/16/17 20:25> Family/Social History - Physician Review Nursing Documentation Reviewed: Yes Family/Social History: Unknown Family HX Smoking Status: Never Smoked Hx Alcohol Use: Yes (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) Frequency of alcohol use: Socially Hx Substance Use: No Hx Substance Use Treatment: No <GhazalaHappiness A - Last Filed: 08/16/17 20:25> Allergies/Home Meds <GhazalaHappiness A - Last Filed: 08/16/17 20:25> <Luc Tang - Last Filed: 08/19/17 15:19> Allergies/Adverse Reactions: Allergies No Known Allergies Allergy (Verified 07/28/17 13:34) Home Medications: Home Meds Medication Instructions Recorded Confirmed Albuterol HFA [Ventolin HFA 90 2 puff INH PRN PRN 03/20/17 07/28/17 mcg/actuation (8 g)] Levothyroxine [Synthroid] 75 mcg PO DAILY 03/20/17 07/28/17 MetFORMIN [glucOPHAGE] 500 mg PO BID 03/20/17 07/28/17 Sslke-2-Cwaw Ethyl Esters [OMEGA 3] 1,000 mg PO DAILY 03/20/17 07/28/17 Atorvastatin [Lipitor] 40 mg PO HS 07/26/17 07/28/17 Review of Systems - Physician Review All systems were reviewed & negative as marked: Yes - Review of Systems Constitutional: Normal Eyes: Normal ENT: Normal Respiratory: Normal Cardiovascular: Normal Gastrointestinal: Abdominal Pain, Diarrhea. absent: Constipation, Nausea, Vomiting, Hematochezia, Hematemesis Genitourinary Female: Normal Musculoskeletal: Arthralgias (B/L leg pain) Skin: Normal Neurological: Dizziness. absent: Headache, Focal Weakness Endocrine: Normal Hemo/Lymphatic: Normal Psychiatric: Normal <GhazalaHappiness A - Last Filed: 08/16/17 20:25> Physical Exam Vital Signs Reviewed: Yes Temperature: Afebrile Blood Pressure: Normal Pulse: Regular Respiratory Rate: Normal Appearance: Positive for: Well-Appearing, Non-Toxic, Comfortable Pain Distress: None Mental Status: Positive for: Alert and Oriented X 3 Finger Stick Blood Glucose: 110 - Systems Exam Head: Present: Atraumatic, Normocephalic Pupils: Present: PERRL Extroacular Muscles: Present: EOMI Conjunctiva: Present: Normal Mouth: Present: Moist Mucous Membranes Neck: Present: Normal Range of Motion Respiratory/Chest: Present: Clear to Auscultation, Good Air Exchange. No: Respiratory Distress, Accessory Muscle Use Cardiovascular: Present: Regular Rate and Rhythm, Normal S1, S2. No: Murmurs Abdomen: Present: Tenderness (suprapubic tenderness), Normal Bowel Sounds, Other (soft). No: Distention, Peritoneal Signs, Rebound, Guarding, McBurney's Point Tender, Rovsing's Sign Present Back: Present: Normal Inspection Upper Extremity: Present: Normal Inspection. No: Cyanosis, Edema Lower Extremity: Present: NORMAL PULSES, Normal ROM, Neurovascularly Intact. No : Edema, CALF TENDERNESS, Herlinda's Sign, Tenderness, Swelling Neurological: Present: GCS=15, CN II-XII Intact, Speech Normal, Motor Func Grossly Intact, Normal Sensory Function, Normal Cerebellar Funct, Norm Deep Tendon Reflexes, Gait Normal, Memory Normal, Other (No focal neurological deficit) Skin: Present: Warm, Dry, Normal Color. No: Rashes Psychiatric: Present: Alert, Oriented x 3, Normal Insight, Normal Concentration <Diru,Happiness A - Last Filed: 08/16/17 20:25> Vital Signs Temp Pulse Resp BP Pulse Ox 08/16/17 12:00 69 18 132/74 97 08/16/17 10:42 98.0 F 74 17 134/80 97 08/16/17 09:28 98.0 F 72 18 134/80 97 Medical Decision Making <Diru,Happiness A - Last Filed: 08/16/17 20:25> <Luc Tang - Last Filed: 08/19/17 15:19> ED Course and Treatment: 08/16/17 20:25 PT in ED for stated history. She was neurologically intact. Comfortable, not in distress and hemodynamically stable. Lab was unremarkable. Pt had UTI and was treated with Macrobid. PT have had similar abdominal pain and dizziness and was seen here. she have also seen her PMD and a specialist for these symptoms. She is stable and will be DC home. Preliminary b/l Doppler was negative for DVT All result was DW both pt and the family member . Pt reports that her symptom resolved prior to DC. she was DC home with caralfate, meclizine, macrobid and strongly advised to f/.u with her PMD. TRT ED for any new or worsening symptoms. (Diru,Happiness A) - Lab Interpretations Microbiology Results: Microbiology Results 08/16/17 10:00 Urine,Clean Catch Urine Culture - Final No Growth (<1,000 CFU/ML) Lab Results: 08/16/17 10:00 08/16/17 10:00 Lab Results 08/16/17 10:13: POC Glucose (mg/dL) 110 08/16/17 10:00: Sodium 140, Potassium 4.4, Chloride 105, Carbon Dioxide 24, Anion Gap 16, BUN 18, Creatinine 0.9, Est GFR ( Amer) > 60, Est GFR (Non- Af Amer) > 60, Random Glucose 108, Calcium 10.2, Total Bilirubin 0.7, AST 28, ALT 32, Alkaline Phosphatase 125, Lactate Dehydrogenase 456, Total Creatine Kinase 135, Troponin I < 0.01, Total Protein 7.7, Albumin 4.5, Globulin 3.2, Albumin/Globulin Ratio 1.4, Amylase 83, Lipase 107 08/16/17 10:00: Urine Color Straw, Urine Appearance Clear, Urine pH 7.0, Ur Specific [place] 1.010, Urine Protein Negative, Urine Glucose (UA) Negative, Urine Ketones Negative, Urine Blood Negative, Urine Nitrate Negative, Urine Bilirubin Negative, Urine Urobilinogen 0.2, Ur Leukocyte Esterase Trace H, Urine RBC 0 - 2, Urine WBC 1 - 3, Ur Epithelial Cells 3 - 4, Urine Bacteria Few 08/16/17 10:00: PT 11.5, INR 1.00, APTT 29.5 08/16/17 10:00: WBC 7.7, RBC 4.16, Hgb 12.3, Hct 37.2, MCV 89.4, MCH 29.6, MCHC 33.1, RDW 13.7, Plt Count 203, MPV 10.2, Gran % 58.9, Lymph % (Auto) 26.6, [place] % (Auto) 4.9, Eos % (Auto) 9.2 H, Baso % (Auto) 0.4, Gran # 4.55, Lymph # 2.1, [place] # 0.4, Eos # 0.7, Baso # 0.03 - RAD Interpretation Radiology Orders: 08/16/17 09:57 DUPLEX LOWER EXTRM VEIN BILAT [US] Stat - Medication Orders Current Medication Orders: Discontinued Medications Famotidine (Pepcid) 20 mg IVP STAT STA Stop: 08/16/17 09:57 Last Admin: 08/16/17 10:30 Dose: 20 mg IVP Administration Document 08/16/17 10:30 SF (Rec: 08/16/17 10:30 [place] [facility] [id number][place] Charges for Administration # of IVP Administrations 1 Sodium Chloride (Sodium Chloride 0.9%) 1,000 mls @ 100 mls/hr IV .Q10H STA Stop: 08/16/17 19:55 Last Admin: 08/16/17 10:30 Dose: 100 mls/hr eMAR Start Stop Document 08/16/17 10:30 SF (Rec: 08/16/17 10:30 SF [facility] [id number]) Intravenous Solution Start Date 08/16/17 Start Time 10:30 End Date 08/16/17 Nitrofurantoin Macrocrystals (Macrobid) 100 mg PO ONCE STA Stop: 08/16/17 11:02 Last Admin: 08/16/17 11:51 Dose: 100 mg Ondansetron HCl (Zofran Inj) 4 mg IVP STAT STA Stop: 08/16/17 09:57 Last Admin: 08/16/17 10:30 Dose: 4 mg IVP Administration Document 08/16/17 10:30 SF (Rec: 08/16/17 10:30 SF [facility] [id number]) Charges for Administration # of IVP Administrations 1 - PA / LIFE ENRICHMENT ASSISTANT / Resident Statement /DO has reviewed & agrees with the documentation as recorded. <Luc Tang - Last Filed: 08/19/17 15:19> Disposition/Present on Arrival - Present on Arrival Any Indicators Present on Arrival: No History of DVT/PE: No History of Uncontrolled Diabetes: No Urinary Catheter: No History of Decub. Ulcer: No History Surgical Site Infection Following: None - Disposition Have Diagnosis and Disposition been Completed?: Yes Disposition Time: 12:05 Patient Plan: Discharge <Raji Vivar - Last Filed: 08/16/17 20:25> <Luc Tang - Last Filed: 08/19/17 15:19> - Disposition Diagnosis: Urinary tract infection, Abdominal pain, Dizziness Disposition: HOME/ ROUTINE Condition: STABLE Discharge Instructions (ExitCare): Urinary Tract Infection in Women (ED), Acute Abdominal Pain (ED) Additional Instructions: Follow up with your private Doctor Drink plenty of fluid Return to ED for any new or worsening symptoms Prescriptions: Meclizine [Antivert] 12.5 mg PO Q6 #10 tab Nitrofurantoin Macrocrystals [Macrobid] 100 mg PO BID #14 cap Sucralfate [Carafate] 1 gm PO TID #21 tablet Referrals: Taye Mckinney MD [Primary Care Provider] - Follow up with primary Forms: [employer] (Romanian)
[2017-08-16 12:11] VITALS: BP 132/74; PULSE 69; RESP 18
--- NOTE | 2017-08-17 09:50 | CARD ---
APPROVED REPORT EKG Measurement Heart [id number] <Conclusion> Normal sinus rhythm Normal ECG
== END 2017-08-16 12:52 | disposition home or self-care (01) ==
LOC: ED 09:27
DX: N39.0 Urinary tract infection, site not specified (principal); R10.30 Lower abdominal pain, unspecified; R42 Dizziness and giddiness; E11.9 Type 2 diabetes mellitus without complications; I10 Essential (primary) hypertension; E03.9 Hypothyroidism, unspecified
CPT/HCPCS: 80053; 81001; 82150; 82550; 82948; 83615; 83690; 84484; 85025; 85610; 85730; 87086; 93005; 93970; 96374; 96375; 99285; J2405; J7040

== ENCOUNTER 2017-09-23 15:44 | Emergency (ER) | payer MEDICAID ==
[2017-09-23 15:44] VITALS: BMI 23.0
[2017-09-23 16:02] VITALS: TEMP 98.2
--- NOTE | 2017-09-23 16:35 | ED PDOC ---
Arrival/HPI - General Chief Complaint: Chest Pain Time Seen by Provider: 09/23/17 15:54 Historian: Patient, Family - History of Present Illness Narrative History of Present Illness (Text): you were treated in the ED today for hx of htn, diabetes, hypothyroid, TIA/ stroke with prior facial droop which is unchanged but having mid-sternal chest pain which is going to the left arm/neck/left face but otherwise without any nausea/vomiting/headache/dizziness/difficulty breathing/chest pain/abdomen pain/ numbness/tingling/loss of limb function/pain with urination. 09/23/17 16:33 Time/Duration: 4-6 hours Symptom Onset: Gradual Symptom Course: Unchanged Quality: Aching Severity Level: 2 Activities at Onset: Rest Context: Sitting Past Medical History - Provider Review Nursing Documentation Reviewed: Yes - Travel History Have you recently traveled outside [place] w/in the past 3 mons?: No - Past History Past History: Non-Contributing - Infectious Disease Hx of Infectious Diseases: None - Tetanus Immunization Tetanus Immunization: Unknown - Reproductive Menopause: Yes - Past Medical History Past Medical History: Non-Contributing - Cardiac Hx Cardiac Disorders: Yes Hx Hypertension: Yes - Pulmonary Hx Respiratory Disorders: Yes Hx Asthma: Yes Hx Emphysema: Yes - Neurological Hx Neurological Disorder: Yes HX Cerebrovascular Accident: Yes Hx Transient Ischemic Attacks (TIA): Yes - HEENT Hx HEENT Disorder: Yes Other/Comment: left eye scraping 10/2016 - Renal Hx Renal Disorder: Yes Hx Kidney Stones: Yes (right) - Endocrine/Metabolic Hx Endocrine Disorders: Yes Hx Diabetes Mellitus Type 2: Yes Hx Hypothyroidism: Yes - Hematological/Oncological Hx Blood Disorders: No - Integumentary Hx Dermatological Disorder: No - Musculoskeletal/Rheumatological Hx Musculoskeletal Disorders: Yes Hx Arthritis: Yes Hx Back Pain: Yes Hx Osteoarthritis: Yes Hx Osteoporosis: Yes - Gastrointestinal Hx Gastrointestinal Disorders: No - Genitourinary/Gynecological Hx Genitourinary Disorders: No - Psychiatric Hx Psychophysiologic Disorder: No (denies) Hx Bipolar Disorder: No Hx Emotional Abuse: No Hx Hallucinations: No Hx Panic Disorder: No Hx Post Traumatic Stress Disorder: No Hx Psychosis: No Hx Physical Abuse: No Hx Schizophrenia: No Hx Sexual Abuse: No Hx Substance Use: No - Surgical History Hx Orthopedic Surgery: Yes (2001) Other/Comment: breast bx - Anesthesia Hx Anesthesia: Yes Hx Anesthesia Reactions: No Hx Malignant Hyperthermia: No - Suicidal Assessment Feels Threatened In Home Enviroment: No Family/Social History - Physician Review Nursing Documentation Reviewed: Yes Family/Social History: No Known Family HX Smoking Status: Never Smoked Hx Alcohol Use: Yes (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) Hx Substance Use: No Hx Substance Use Treatment: No Allergies/Home Meds Allergies/Adverse Reactions: Allergies No Known Allergies Allergy (Verified 07/28/17 13:34) Home Medications: Home Meds Medication Instructions Recorded Confirmed Albuterol HFA [Ventolin HFA 90 2 puff INH PRN PRN 03/20/17 09/23/17 mcg/actuation (8 g)] Levothyroxine [Synthroid] 75 mcg PO DAILY 03/20/17 09/23/17 MetFORMIN [glucOPHAGE] 500 mg PO BID 03/20/17 09/23/17 Cvask-1-Ymqo Ethyl Esters [OMEGA 3] 1,000 mg PO DAILY 03/20/17 09/23/17 Atorvastatin [Lipitor] 40 mg PO HS 07/26/17 09/23/17 Review of Systems - Review of Systems Constitutional: Normal Eyes: Normal ENT: Normal Respiratory: Normal Cardiovascular: Chest Pain Gastrointestinal: Normal Genitourinary Female: Normal Musculoskeletal: Normal Skin: Normal Neurological: Headache Endocrine: Normal Hemo/Lymphatic: Normal Psychiatric: Normal Physical Exam Vital Signs Reviewed: Yes Vital Signs Temp Pulse Resp BP Pulse Ox 09/23/17 18:48 65 18 112/69 98 09/23/17 16:50 68 18 110/68 97 09/23/17 15:58 98.2 F 73 16 108/70 97 Temperature: Afebrile Blood Pressure: Normal Pulse: Regular Respiratory Rate: Normal Appearance: Positive for: Well-Appearing, Non-Toxic, Comfortable Pain Distress: None Mental Status: Positive for: Alert and Oriented X 3 - Systems Exam Head: Present: Atraumatic, Normocephalic Pupils: Present: PERRL Extroacular Muscles: Present: EOMI Conjunctiva: Present: Normal Ears: Present: Normal Mouth: Present: Moist Mucous Membranes Pharnyx: Present: Normal Nose (External): Present: Atraumatic Nose (Internal): Present: Normal Inspection Neck: Present: Normal Range of Motion Respiratory/Chest: Present: Clear to Auscultation, Good Air Exchange Cardiovascular: Present: Regular Rate and Rhythm Abdomen: No: Tenderness, Distention, Normal Bowel Sounds, Peritoneal Signs, Rebound, Guarding, McBurney's Point Tender, Rovsing's Sign Present, Hernias, Feeding Tubes, Ostomy Tubes, Mass/Organomegaly, Scars, Other Back: Present: Normal Inspection Upper Extremity: Present: Normal Inspection Lower Extremity: Present: Normal Inspection Neurological: Present: GCS=15, CN II-XII Intact, Speech Normal, Motor Func Grossly Intact, Other (no change in facial expression from prior per pt and daughter) Skin: Present: Warm, Normal Color Psychiatric: Present: Alert, Oriented x 3, Normal Insight, Normal Concentration Medical Decision Making ED Course and Treatment: you were treated in the ED today for hx of htn, diabetes, hypothyroid, coronary heart catheterization with unremarkable circulation 02/27/[address] Collado, TIA/stroke with prior facial droop which is unchanged but having mid-sternal chest pain which is going to the left arm/neck/left face but otherwise without any nausea/vomiting/headache/dizziness/difficulty breathing/chest pain/abdomen pain/numbness/tingling/loss of limb function/pain with urination. You were otherwise breathing easily, pink moist lips, talking with your daughter, good strength/sensation, alert/oriented, walking easily, clear lungs, no abdomen tenderness, no change in facial droop or strength/sensation, no fever temp 98.2 , stable heart rate 73, stable breathing rate 16, excellent oxygen level 97% room air, stable blood pressure 108/70 which we recommend repeat in 2-3 days primary care office to determine further treatment, you have blood tests no infection count 7, stable blood level hemoglobin 11/platelets 208, stable chemistry, mildly elevated magnesium 2.4, heart blood test negative, urine test trace infection, radiology ct head no acute findings and chest xray mild bibasilar atelectasis/emphysema, ECG normal sinus rhythm, tylenol, observation , asprin after CT head no acute findings, observation done in the ED with improvement, counselled to stay for further testing/observation but you refused and cautioned for complications/ and you went home with daughter. 1. Recommend continue your home meds. 2. Recommend follow-up primary care 1-2 days to review symptoms, get final urine culture to determine further treatment , referral to cardiology and neurology clinic to review your symptoms. 3. If any worsening pain, fever, chills, nausea, vomiting, difficulty breathing, numbness, loss of limb function, pain with urination or any medical condition then return to the ED. 09/23/17 18:15 CT HEAD WITHOUT CONTRAST Creator : Cesar Hussein MD IMPRESSION: No evidence of acute intracranial hemorrhage. Mild generalized volume loss. 09/23/17 18:29 09/23/17 18:29 09/23/17 19:34 09/23/17 19:45 09/23/17 20:04 Reassessment Condition: Re-examined, Improved - Lab Interpretations Lab Results: 09/23/17 16:50 09/23/17 16:50 Lab Results 09/23/17 18:40: POC Glucose (mg/dL) 87 09/23/17 16:50: Sodium 143, Potassium 4.0, Chloride 105, Carbon Dioxide 30, Anion Gap 12, BUN 24 H, Creatinine 0.8, Est GFR ( Amer) > 60, Est GFR ( Non-Af Amer) > 60, Random Glucose 104, Calcium 10.0, Magnesium 2.4 H, Total Bilirubin 0.5, AST 36 D, ALT 32, Alkaline Phosphatase 122, Lactate Dehydrogenase 432, Total Creatine Kinase 77, Troponin I < 0.01, NT-Pro-B Natriuret Pep 35.8, Total Protein 7.2, Albumin 4.1, Globulin 3.1, Albumin/ Globulin Ratio 1.3 09/23/17 16:50: PT 11.7, INR 1.03, APTT 30.5 09/23/17 16:50: WBC 7.1, RBC 4.05, Hgb 11.9 L, Hct 36.5, MCV 90.1, MCH 29.4, MCHC 32.6, RDW 13.5, Plt Count 208, MPV 9.8, Gran % 56.9, Lymph % (Auto) 29.7, [place] % (Auto) 3.8, Eos % (Auto) 9.2 H, Baso % (Auto) 0.4, Gran # 4.01, Lymph # ( Auto) 2.1, [place] # (Auto) 0.3, Eos # (Auto) 0.7, Baso # (Auto) 0.03 09/23/17 16:35: Urine Color Yellow, Urine Appearance Clear, Urine pH 6.0, Ur Specific [place] 1.020, Urine Protein Negative, Urine Glucose (UA) Negative, Urine Ketones Negative, Urine Blood Trace-intact H, Urine Nitrate Negative, Urine Bilirubin Negative, Urine Urobilinogen 0.2, Ur Leukocyte Esterase Trace H , Urine RBC 1 - 3, Urine WBC 2 - 5, Ur Epithelial Cells 3 - 4, Amorphous Sediment Few, Urine Bacteria Many, Urine Other Uyeast I have reviewed the lab results: Yes - RAD Interpretation Radiology Orders: 09/23/17 16:31 HEAD W/O CONTRAST [CT] Stat CHEST PORTABLE [RAD] Stat Sheeter Machine Operator: Radiologist (see mdm) - EKG Interpretation Interpreted by ED Physician: Yes (NSR, flipped t waves avr, v1) Type: 12 lead EKG Comparison: Similar to previous EKG (08/16/17) - Medication Orders Current Medication Orders: Discontinued Medications Acetaminophen (Tylenol 325mg Tab) 975 mg PO STAT STA Stop: 09/23/17 16:32 Last Admin: 09/23/17 16:50 Dose: 975 mg MAR Pain/Vitals Document 09/23/17 16:50 SE (Rec: 09/23/17 16:52 SE [id number]) Pain Reassessment Is This A Pain ReAssessment? No Sleep Is patient sleeping during reassessment? No Presence of Pain Presence of Pain Yes Pain Scale Used Pain Scale Used Numeric Aspirin (Aspirin Chewable) 324 mg PO STAT STA Stop: 09/23/17 18:30 Last Admin: 09/23/17 18:45 Dose: 324 mg NIHSS Stroke Scale 3 - Date/Time Evaluation Performed Date Performed: 09/23/17 When Was NIHSS Performed: Baseline - How Severe is the Stroke Level of Consciousness: 0=Alert LOC to Questions: 0=Both comments correct LOC to commands: 0=Obeys both correctly Best Gaze: 0=Normal Visual: 0=No visual loss Facial: 0=Normal Motor Arm - Left: 0=No drift Motor Arm - Right: 0=No drift Motor Leg - Left: 0=No drift Motor Leg - Right: 0=No drift Limb Ataxia: 0=Absent Sensory: 0=Normal Best Language: 0=No aphasia Dysarthia: 0=Normal articulation Extinction & Inattention (Neglect): 0=Normal, no object Score: 0 Disposition/Present on Arrival - Present on Arrival Any Indicators Present on Arrival: No History of DVT/PE: No History of Uncontrolled Diabetes: No Urinary Catheter: No History of Decub. Ulcer: No History Surgical Site Infection Following: None - Disposition Have Diagnosis and Disposition been Completed?: Yes Diagnosis: Chest pain Disposition: AGAINST MEDICAL ADVICE Disposition Time: 20:06 Patient Plan: Discharge Condition: IMPROVED Discharge Instructions (ExitCare): Chest Pain (ED) Additional Instructions: you were treated in the ED today for hx of htn, diabetes, hypothyroid, coronary heart catheterization with unremarkable circulation 02/27/[address] Collado, TIA/stroke with prior facial droop which is unchanged but having mid-sternal chest pain which is going to the left arm/neck/left face but otherwise without any nausea/vomiting/headache/dizziness/difficulty breathing/chest pain/abdomen pain/numbness/tingling/loss of limb function/pain with urination. You were otherwise breathing easily, pink moist lips, talking with your daughter, good strength/sensation, alert/oriented, walking easily, clear lungs, no abdomen tenderness, no change in facial droop or strength/sensation, no fever temp 98.2 , stable heart rate 73, stable breathing rate 16, excellent oxygen level 97% room air, stable blood pressure 108/70 which we recommend repeat in 2-3 days primary care office to determine further treatment, you have blood tests no infection count 7, stable blood level hemoglobin 11/platelets 208, stable chemistry, mildly elevated magnesium 2.4, heart blood test negative, urine test trace infection, radiology ct head no acute findings and chest xray mild bibasilar atelectasis/emphysema, ECG normal sinus rhythm, tylenol, observation , asprin after CT head no acute findings, observation done in the ED with improvement, counselled to stay for further testing/observation but you refused and cautioned for complications/ and you went home with daughter. 1. Recommend continue your home meds. 2. Recommend follow-up primary care 1-2 days to review symptoms, get final urine culture to determine further treatment , referral to cardiology and neurology clinic to review your symptoms. 3. If any worsening pain, fever, chills, nausea, vomiting, difficulty breathing, numbness, loss of limb function, pain with urination or any medical condition then return to the ED. Referrals: Lauryn Silva, [Primary Care Provider] - Follow up with primary Forms: [employer] (Macedonian)
[2017-09-23 16:51] VITALS: RESP 18
[2017-09-23 17:06] LABS: BASO # 0.03 K/mm3 (0.0-2.0); BASO % 0.4 % (0.0-3.0); EOS # 0.7 (0.0-0.7); EOS % 9.2 % (1.5-5.0); GRAN # 4.01 (1.4-6.5); GRAN % 56.9 % (50.0-68.0); HEMOGLOBIN 11.9 g/dL (12.0-16.0); LYMPH # 2.1 (1.2-3.4); LYMPH % 29.7 % (22.0-35.0); MEAN CELL VOLUME 90.1 fl (80.0-105.0); MEAN CORPUSCULAR HEMOGLOBIN 29.4 pg (25.0-35.0); MEAN CORPUSCULAR HGB CONC 32.6 g/dl (31.0-37.0); MEAN PLATELET VOLUME 9.8 fl (7.0-11.0); MONO # 0.3 (0.1-0.6); MONO % 3.8 % (1.0-6.0); RBC 4.05 10^6/uL (3.5-6.1); RED CELL DISTRIBUTION WIDTH 13.5 % (11.5-14.5); WHITE BLOOD COUNT 7.1 10^3/ul (4.5-11.0)
[2017-09-23 17:08] LABS: URINE APPEARANCE CLEAR (CLEAR); URINE BILIRUBIN NEGATIVE (NEGATIVE); URINE BLOOD TRACE-INTACT (NEGATIVE); URINE COLOR YELLOW (YELLOW); URINE GLUCOSE (UA) NEGATIVE (NEGATIVE); URINE LEUKOCYTE ESTERASE TRACE Leu/uL (NEGATIVE); URINE NITRATE NEGATIVE (NEGATIVE); URINE PROTEIN NEGATIVE mg/dL (<30 mg/dL); URINE UROBILINOGEN 0.2 E.U./dL (<1 E.U./dL)
[2017-09-23 17:13] LABS: URINE AMORPHOUS SEDIMENT FEW; URINE BACTERIA MANY (NEG)
[2017-09-23 17:26] LABS: ALB/GLOB RATIO 1.3 (1.1-1.8); ALBUMIN 4.1 g/dL (3.0-4.8); ALT/SGPT 32 U/L (7-56); AST/SGOT 36 U/L (14-36); BLOOD UREA NITROGEN 24 mg/dL (7-21); GFR AFRICAN-AMERICAN > 60; GFR NON-AFRICAN AMERICAN > 60; INR 1.03 (0.93-1.08); MAGNESIUM 2.4 mg/dL (1.7-2.2); PROTHROMBIN TIME 11.7 SECONDS (9.4-12.5)
[2017-09-23 17:27] LABS: PARTIAL THROMBOPLASTIN TIME 30.5 Seconds (25.1-36.5)
[2017-09-23 17:37] LABS: TROPONIN I < 0.01 ng/mL
[2017-09-23 17:39] LABS: B-TYPE NATRIURETIC PEPTIDE 35.8 pg/mL (0-450)
--- NOTE | 2017-09-23 18:05 | CT ---
PROCEDURE: CT HEAD WITHOUT CONTRAST. HISTORY: 62yoF, w hx of TIA/CVA, with headache. COMPARISON: Comparison made with prior CT scan brain 03/20/2017 TECHNIQUE: Axial computed tomography images were obtained through the head/brain without intravenous contrast. Radiation dose: Total exam DLP = 990.75 mGy-cm. This CT exam was performed using one or more of the following dose reduction techniques: Automated exposure control, adjustment of the mA and/or kV according to patient size, and/or use of iterative reconstruction technique. FINDINGS: HEMORRHAGE: No acute parenchymal, subarachnoid nor extra-axial hemorrhage. BRAIN: No evidence of large acute infarct. No obvious parenchymal nor extra-axial mass or collection. . Mild generalized volume loss VENTRICLES: No obstructive hydrocephalus. CALVARIUM: Unremarkable. PARANASAL SINUSES: Unremarkable as visualized. No significant inflammatory changes. MASTOID AIR CELLS: Unremarkable as visualized. No inflammatory changes. OTHER FINDINGS: None. IMPRESSION: No evidence of acute intracranial hemorrhage. Mild generalized volume loss.
--- NOTE | 2017-09-23 18:40 | RAD ---
HISTORY: 62yoF, chest pain COMPARISON: Comparison chest 07/02/2017. Comparison also made with CTA chest dated 03/21/2017. FINDINGS: LUNGS: Minor bibasilar atelectasis. . Lucent appearance of the upper lung recinos felt to be secondary to emphysematous changes. PLEURA: No significant pleural effusion identified, no pneumothorax apparent. CARDIOVASCULAR: Normal. OSSEOUS STRUCTURES: No significant abnormalities. VISUALIZED UPPER ABDOMEN: Normal. OTHER FINDINGS: None. IMPRESSION: Minor bibasilar atelectasis. Emphysema.
[2017-09-23 21:17] VITALS: BP 115/68; PULSE 72; O2SAT 100
--- NOTE | 2017-09-24 08:33 | CARD ---
APPROVED REPORT EKG Measurement Heart [id number] <Conclusion> Normal sinus rhythm Normal ECG
== END 2017-09-23 20:14 | disposition left against medical advice (07) ==
LOC: ED 15:44
DX: R07.9 Chest pain, unspecified (principal); I10 Essential (primary) hypertension; E11.9 Type 2 diabetes mellitus without complications; Z86.73 Personal history of transient ischemic attack (TIA), and cerebral infarction without residual deficits

== ENCOUNTER 2017-12-02 16:28 | Emergency (ER) | payer MEDICAID ==
[2017-12-02 16:28] VITALS: BMI 23.0
--- NOTE | 2017-12-02 17:06 | ED PDOC ---
Arrival/HPI - General Chief Complaint: Eye Problem Time Seen by Provider: 12/02/17 16:47 - History of Present Illness Narrative History of Present Illness (Text): 62 y/o F c PMHx COPD, DM, HTN, no contact lenses p/w red eye upon awakening this morning. Notes it is mildly painful with occasional discharge of tears. Denies trauma, foreign body, vision change, photophobia. Past Medical History - Past History Past History: Non-Contributing - Infectious Disease Hx of Infectious Diseases: None - Tetanus Immunization Tetanus Immunization: Unknown - Past Medical History Past Medical History: Non-Contributing - Cardiac Hx Cardiac Disorders: Yes Hx Hypertension: Yes - Pulmonary Hx Respiratory Disorders: Yes Hx Asthma: Yes Hx Emphysema: Yes - Neurological Hx Neurological Disorder: Yes HX Cerebrovascular Accident: Yes Hx Transient Ischemic Attacks (TIA): Yes - HEENT Hx HEENT Disorder: Yes Other/Comment: left eye scraping 10/2016 - Renal Hx Renal Disorder: Yes Hx Kidney Stones: Yes (right) - Endocrine/Metabolic Hx Endocrine Disorders: Yes Hx Diabetes Mellitus Type 2: Yes Hx Hypothyroidism: Yes - Hematological/Oncological Hx Blood Disorders: No - Integumentary Hx Dermatological Disorder: No - Musculoskeletal/Rheumatological Hx Musculoskeletal Disorders: Yes Hx Arthritis: Yes Hx Back Pain: Yes Hx Osteoarthritis: Yes Hx Osteoporosis: Yes - Gastrointestinal Hx Gastrointestinal Disorders: No - Genitourinary/Gynecological Hx Genitourinary Disorders: No - Psychiatric Hx Psychophysiologic Disorder: No (denies) Hx Bipolar Disorder: No Hx Emotional Abuse: No Hx Hallucinations: No Hx Panic Disorder: No Hx Post Traumatic Stress Disorder: No Hx Psychosis: No Hx Physical Abuse: No Hx Schizophrenia: No Hx Sexual Abuse: No Hx Substance Use: No - Surgical History Hx Orthopedic Surgery: Yes (2001) Other/Comment: breast bx - Anesthesia Hx Anesthesia: Yes Hx Anesthesia Reactions: No Hx Malignant Hyperthermia: No - Suicidal Assessment Feels Threatened In Home Enviroment: No Family/Social History Family/Social History: No Known Family HX Smoking Status: Never Smoked Hx Alcohol Use: Yes (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) Hx Substance Use: No Hx Substance Use Treatment: No Allergies/Home Meds Allergies/Adverse Reactions: Allergies No Known Allergies Allergy (Verified 12/02/17 16:34) Home Medications: Home Meds Medication Instructions Recorded Confirmed Albuterol HFA [Ventolin HFA 90 2 puff INH PRN PRN 03/20/17 09/23/17 mcg/actuation (8 g)] Levothyroxine [Synthroid] 75 mcg PO DAILY 03/20/17 09/23/17 MetFORMIN [glucOPHAGE] 500 mg PO BID 03/20/17 09/23/17 [id number] Ethyl Esters [OMEGA 3] 1,000 mg PO DAILY 03/20/17 09/23/17 Atorvastatin [Lipitor] 40 mg PO HS 07/26/17 09/23/17 Review of Systems - Physician Review All systems were reviewed & negative as marked: Yes - Review of Systems Constitutional: absent: Fevers Eyes: absent: Vision Changes Physical Exam - Physical Exam Narrative Physical Exam (Text): Gen: NAD Head: NC/AT Eyes: PERRL. EOMI. No foreign body under eyelids. R eye medially with redness. Neuro: Alert Vital Signs Temp Pulse Resp BP Pulse Ox 12/02/17 16:35 97.6 F 68 16 108/73 94 L Medical Decision Making ED Course and Treatment: F/u Ophtho, start antibiotic drops, return to ED for worsening pain or vision change. Disposition/Present on Arrival - Present on Arrival Any Indicators Present on Arrival: No History of DVT/PE: No History of Uncontrolled Diabetes: No Urinary Catheter: No History of Decub. Ulcer: No History Surgical Site Infection Following: None - Disposition Have Diagnosis and Disposition been Completed?: Yes Diagnosis: Red eye Disposition: HOME/ ROUTINE Disposition Time: 17:06 Patient Plan: Discharge Patient Problems: Current Active Problems Problem Status Onset Red eye Acute Condition: STABLE Discharge Instructions (ExitCare): Subconjunctival Hemorrhage Prescriptions: Polymyxin/Trimethoprim Sulfate [Polytrim Ophth Soln] 2 drop OD Q6H #1 bottle Referrals: Sinan Edmonds MD [Staff Provider] - Follow up with primary Forms: [employer] (Kazakh)
[2017-12-02 17:49] VITALS: BP 120/69; PULSE 70; RESP 17; TEMP 97.5; O2SAT 96
== END 2017-12-02 17:42 | disposition home or self-care (01) ==
LOC: ED 16:28
DX: H57.8 Other specified disorders of eye and adnexa (principal)

== ENCOUNTER 2018-08-01 11:31 | Emergency (ER) | payer MEDICAID ==
[2018-08-01 11:31] VITALS: BMI 23.0
[2018-08-01 11:47] VITALS: BP 121/72
--- NOTE | 2018-08-01 12:52 | ED PDOC ---
Arrival/HPI - General Chief Complaint: Female Genitourinary Time Seen by Provider: 08/01/18 11:44 Historian: Patient - History of Present Illness Narrative History of Present Illness (Text): 08/01/18 12:46 63-year-old female presents today with a 2 day history of dysuria and urinary frequency. Patient also complaining of slight low back pain. Patient denies fevers or chills. No nausea vomiting diarrhea or constipation. No chest pain or shortness of breath. Patient denies abdominal pain. No medications have been taken at home. No other complaints Past Medical History - Provider Review Nursing Documentation Reviewed: Yes - Travel History Have you recently traveled outside [place] w/in the past 3 mons?: No - Past History Past History: Non-Contributing - Infectious Disease Hx of Infectious Diseases: None - Tetanus Immunization Tetanus Immunization: Unknown - Reproductive Menopause: No - Past Medical History Past Medical History: Non-Contributing - Cardiac Hx Cardiac Disorders: Yes Hx Hypertension: Yes - Pulmonary Hx Respiratory Disorders: Yes Hx Asthma: Yes Hx Emphysema: Yes - Neurological Hx Neurological Disorder: Yes HX Cerebrovascular Accident: Yes Hx Transient Ischemic Attacks (TIA): Yes - HEENT Hx HEENT Disorder: Yes Other/Comment: left eye scraping 10/2016 - Renal Hx Renal Disorder: Yes Hx Kidney Stones: Yes (right) - Endocrine/Metabolic Hx Endocrine Disorders: Yes Hx Diabetes Mellitus Type 2: Yes Hx Hypothyroidism: Yes - Hematological/Oncological Hx Blood Disorders: No - Integumentary Hx Dermatological Disorder: No - Musculoskeletal/Rheumatological Hx Musculoskeletal Disorders: Yes Hx Arthritis: Yes Hx Back Pain: Yes Hx Osteoarthritis: Yes Hx Osteoporosis: Yes - Gastrointestinal Hx Gastrointestinal Disorders: No - Genitourinary/Gynecological Hx Genitourinary Disorders: No - Psychiatric Hx Psychophysiologic Disorder: No (denies) Hx Bipolar Disorder: No Hx Emotional Abuse: No Hx Hallucinations: No Hx Panic Disorder: No Hx Post Traumatic Stress Disorder: No Hx Psychosis: No Hx Physical Abuse: No Hx Schizophrenia: No Hx Sexual Abuse: No Hx Substance Use: No - Surgical History Hx Orthopedic Surgery: Yes (2001) Other/Comment: breast bx - Anesthesia Hx Anesthesia: Yes Hx Anesthesia Reactions: No Hx Malignant Hyperthermia: No - Suicidal Assessment Feels Threatened In Home Enviroment: No Family/Social History - Physician Review Nursing Documentation Reviewed: Yes Family/Social History: Unknown Family HX Smoking Status: Never Smoked Hx Alcohol Use: Yes (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) Hx Substance Use: No Hx Substance Use Treatment: No Allergies/Home Meds Allergies/Adverse Reactions: Allergies No Known Allergies Allergy (Verified 04/17/18 14:59) Home Medications: Home Meds Medication Instructions Recorded Confirmed Albuterol HFA [Ventolin HFA 90 2 puff INH PRN PRN 03/20/17 12/02/17 mcg/actuation (8 g)] Levothyroxine [Synthroid] 75 mcg PO DAILY 03/20/17 08/01/18 MetFORMIN [glucOPHAGE] 500 mg PO BID 03/20/17 08/01/18 [id number] Ethyl Esters [OMEGA 3] 1,000 mg PO DAILY 03/20/17 08/01/18 Atorvastatin [Lipitor] 40 mg PO HS 07/26/17 08/01/18 Review of Systems - Review of Systems Constitutional: absent: Fatigue, Fevers Respiratory: absent: SOB, Cough Cardiovascular: absent: Chest Pain, Palpitations Gastrointestinal: absent: Abdominal Pain, Constipation, Diarrhea, Nausea, Vomiting Genitourinary Female: Dysuria, Frequency. absent: Hematuria, Vaginal Bleeding, Vaginal Discharge Musculoskeletal: Back Pain. absent: Arthralgias, Neck Pain Skin: absent: Rash, Pruritis Neurological: absent: Headache, Dizziness Psychiatric: absent: Anxiety, Depression Physical Exam Vital Signs Reviewed: Yes Vital Signs Temp Pulse Resp BP Pulse Ox 08/01/18 11:39 98 F 73 18 121/72 97 Temperature: Afebrile Blood Pressure: Normal Pulse: Regular Respiratory Rate: Normal Appearance: Positive for: Well-Appearing, Non-Toxic, Comfortable Pain Distress: None Mental Status: Positive for: Alert and Oriented X 3 - Systems Exam Head: Present: Atraumatic Mouth: Present: Moist Mucous Membranes Neck: Present: Normal Range of Motion Respiratory/Chest: Present: Clear to Auscultation, Good Air Exchange. No: Respiratory Distress, Accessory Muscle Use Cardiovascular: Present: Regular Rate and Rhythm, Normal S1, S2. No: Murmurs Abdomen: No: Tenderness, Distention, Peritoneal Signs, Rebound, Guarding Back: Present: Normal Inspection. No: CVA Tenderness, Midline Tenderness, Paraspinal Tenderness Upper Extremity: Present: Normal ROM Lower Extremity: Present: Normal ROM Neurological: Present: GCS=15, Speech Normal Skin: Present: Warm, Dry, Normal Color. No: Rashes Psychiatric: Present: Alert, Oriented x 3 Medical Decision Making ED Course and Treatment: 08/01/18 12:54 Patient is nontoxic well-appearing in no distress with stable vital signs Urinalysis: + blood, + leukocytes keflex PO Urine culture: pending pt is non toxic well appearing; no distress; abdomen in non tender. no cva tenderness. advised follow up with the primary care physician within the next 2 days. advised immediate return if symptoms worsen,persist or if new symptoms develop. Patient verbalizes understanding of discharge instructions and need for immediate followup. all aspects of this case were discussed the attending of record. Impression: Urinary tract infection/cystitis Motrin every 6 hours as needed for pain keflex; 1 tablet twice daily x 10 days Pyridium one tablet twice daily x3 days Followup with primary care physician within the next 2 days Follow up with the urologist for the next 2 days Return if symptoms worsen persist or if new symptoms develop Disposition/Present on Arrival - Present on Arrival Any Indicators Present on Arrival: No History of DVT/PE: No History of Uncontrolled Diabetes: No Urinary Catheter: No History of Decub. Ulcer: No History Surgical Site Infection Following: None - Disposition Have Diagnosis and Disposition been Completed?: Yes Diagnosis: Urinary tract infection Disposition: HOME/ ROUTINE Disposition Time: 12:52 Patient Plan: Discharge Patient Problems: Current Active Problems Problem Status Onset Urinary tract infection Acute Condition: GOOD Discharge Instructions (ExitCare): Urinary Tract Infection, Adult (DC) Additional Instructions: Motrin every 6 hours as needed for pain keflex; 1 tablet twice daily x 10 days Pyridium one tablet twice daily x3 days Followup with primary care physician within the next 2 days Follow up with the urologist for the next 2 days Return if symptoms worsen persist or if new symptoms develop Prescriptions: Cephalexin [Keflex] 500 mg PO BID #14 capsule Phenazopyridine [Phenazopyridine HCl] 200 mg PO BID #6 tab Referrals: Ivan Wiley MD [Staff Provider] - Follow up with primary Lolly Mendiola MD [Medical Doctor] - Follow up with primary [employer] [Outside] - Follow up with primary Forms: [employer] (Yoruba), WORK NOTE
[2018-08-01 13:32] LABS: URINE BILIRUBIN NEGATIVE (NEGATIVE); URINE BLOOD LARGE (NEGATIVE); URINE GLUCOSE (UA) NEGATIVE (NEGATIVE); URINE LEUKOCYTE ESTERASE MODERATE Leu/uL (NEGATIVE); URINE PROTEIN 30 mg/dL (<30 mg/dL); URINE UROBILINOGEN 0.2 E.U./dL (<1 E.U./dL)
[2018-08-01 13:33] LABS: URINE APPEARANCE SLIGHT-CLOUDY (CLEAR); URINE COLOR YELLOW (YELLOW)
[2018-08-01 13:48] LABS: URINE RBC 25 - 30 /hpf (0-2); URINE WBC 15 - 20 /hpf (0-6)
[2018-08-01 13:49] LABS: URINE BACTERIA FEW /hpf
[2018-08-01 14:22] VITALS: TEMP 98.6; O2SAT 100
[2018-08-01 14:23] VITALS: PULSE 70; RESP 18
== END 2018-08-01 14:22 | disposition home or self-care (01) ==
LOC: ED 11:31
DX: N39.0 Urinary tract infection, site not specified (principal)

== ENCOUNTER 2018-09-16 11:25 | Outpatient (CLI) | payer MEDICAID | END 2018-09-16 11:26 | disposition home or self-care (01) | LOC: RAD 11:25 ==

== ENCOUNTER 2018-11-04 15:10 | Emergency (ER) | payer MEDICAID, OTHER ==
[2018-11-04 15:28] VITALS: BP 140/76; PULSE 65; RESP 18; TEMP 97.7; O2SAT 97
[2018-11-04 15:42] VITALS: BMI 24.0
--- NOTE | 2018-11-04 15:57 | ED PDOC ---
Arrival/HPI - General Time Seen by Provider: 11/04/18 15:24 Historian: Patient, Family (daughter) - History of Present Illness Narrative History of Present Illness (Text): 63 year old F with pmh of chronic gastritis, COPD and HTN presents with chief complaint of abdominal pain 3days. Per daughter, patient has suffered from chronic intermittent abdominal pain x1yr. 3 days ago, patient had an endoscopy and biopsy done with Dr. Vu, brush painter, and has suffered from worsening abdominal pain since. Dr. Vu prescribed them Bentyl which has failed to relive any pain. Pt and family do not know results of endoscope. The family was told by Dr. Vu to present to the [facility] emergency department for evaluation of the abdominal pain. Patient also complains of nausea and but none currently at bedside. Patient denies any vomiting, dysuria, any fevers, chills, headache, chest pain, shortness of breath, dyspnea on exertion, cough, diaphoresis, diarrhea, back pain, neck pain, or any other complaint. Time/Duration: < week Symptom Onset: Sudden Symptom Course: Worsening Activities at Onset: Light Context: Home Past Medical History - Provider Review Nursing Documentation Reviewed: Yes - Past History Past History: Non-Contributing - Infectious Disease Hx of Infectious Diseases: None - Tetanus Immunization Tetanus Immunization: Unknown - Past Medical History Past Medical History: Non-Contributing - Cardiac Hx Cardiac Disorders: Yes Hx Heart Murmur: Yes Hx Hypertension: Yes - Pulmonary Hx Respiratory Disorders: Yes Hx Emphysema: Yes - Neurological Hx Neurological Disorder: Yes HX Cerebrovascular Accident: Yes Hx Transient Ischemic Attacks (TIA): Yes - HEENT Hx HEENT Disorder: No - Renal Hx Renal Disorder: No - Endocrine/Metabolic Hx Endocrine Disorders: Yes Hx Diabetes Mellitus Type 2: Yes Hx Hypothyroidism: Yes - Hematological/Oncological Hx Blood Disorders: No - Integumentary Hx Dermatological Disorder: No - Musculoskeletal/Rheumatological Hx Musculoskeletal Disorders: Yes Hx Arthritis: Yes - Gastrointestinal Hx Gastrointestinal Disorders: No - Genitourinary/Gynecological Hx Genitourinary Disorders: No - Psychiatric Hx Psychophysiologic Disorder: No Hx Emotional Abuse: No Hx Physical Abuse: No Hx Substance Use: No - Surgical History Hx Breast Biopsy: Yes Hx Cardiac Catheterization: Yes Hx Orthopedic Surgery: Yes (LUMBAR SPINAL) - Anesthesia Hx Anesthesia: Yes Hx Anesthesia Reactions: No Hx Malignant Hyperthermia: No - Suicidal Assessment Feels Threatened In Home Enviroment: No Family/Social History - Physician Review Nursing Documentation Reviewed: Yes Family/Social History: Unknown Family HX Smoking Status: Never Smoked Hx Alcohol Use: Yes (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) Hx Substance Use: No Hx Substance Use Treatment: No Allergies/Home Meds Allergies/Adverse Reactions: Allergies No Known Allergies Allergy (Verified 04/17/18 14:59) Home Medications: Home Meds Medication Instructions Recorded Confirmed Levothyroxine [Synthroid] 75 mcg PO DAILY 03/20/17 11/02/18 MetFORMIN [glucOPHAGE] 500 mg PO BID 03/20/17 11/02/18 Atorvastatin [Lipitor] 40 mg PO HS 07/26/17 11/02/18 Review of Systems - Review of Systems Constitutional: absent: Fevers Eyes: absent: Vision Changes, Photophobia ENT: absent: Sore Throat, Rhinorrhea, Epistaxis Respiratory: absent: SOB, Cough, Wheezing Cardiovascular: absent: Chest Pain, Palpitations, Syncope Gastrointestinal: Abdominal Pain, Nausea. absent: Constipation, Diarrhea, Vomiting Genitourinary Female: absent: Dysuria, Urine Output Changes Musculoskeletal: absent: Arthralgias, Back Pain, Myalgias Skin: absent: Rash Neurological: absent: Headache, Dizziness Endocrine: absent: Diaphoresis, Polyuria Psychiatric: absent: Anxiety, Depression Physical Exam Vital Signs Reviewed: Yes Vital Signs Temp Pulse Resp BP Pulse Ox 11/04/18 15:28 97.7 F 65 18 140/76 97 Temperature: Afebrile Blood Pressure: Normal Pulse: Regular Respiratory Rate: Normal Appearance: Positive for: Well-Appearing, Non-Toxic, Comfortable Pain Distress: Mild Mental Status: Positive for: Alert and Oriented X 3 - Systems Exam Head: Present: Atraumatic, Normocephalic Pupils: Present: PERRL Extroacular Muscles: Present: EOMI Conjunctiva: Present: Normal Mouth: Present: Moist Mucous Membranes Pharnyx: No: ERYTHEMA, EXUDATE, TONSILS ENLARGED Neck: Present: Normal Range of Motion. No: Meningeal Signs, MIDLINE TENDERNESS Respiratory/Chest: Present: Clear to Auscultation, Good Air Exchange. No: Respiratory Distress, Accessory Muscle Use Cardiovascular: Present: Regular Rate and Rhythm, Normal S1, S2. No: Murmurs Abdomen: Present: Tenderness (Epigastric), Normal Bowel Sounds. No: Distention, Peritoneal Signs, Rebound, Guarding, McBurney's Point Tender, Rovsing's Sign Present Back: Present: Normal Inspection. No: CVA Tenderness, Midline Tenderness, Paraspinal Tenderness Upper Extremity: Present: Normal Inspection. No: Cyanosis, Edema Lower Extremity: Present: Normal Inspection. No: Edema Neurological: Present: GCS=15, CN II-XII Intact, Speech Normal Skin: Present: Warm, Dry, Normal Color. No: Rashes Psychiatric: Present: Alert, Oriented x 3, Normal Insight, Normal Concentration Medical Decision Making ED Course and Treatment: 11/04/18 15:51 Impression: 63 year old F presents with chief complaint of abdominal pain 3days. Per daughter, patient has suffered from chronic intermittent abdominal pain x1yr. Recent endoscopy w/ epigastric pain on exam. Pt in NAd however, will seek labs and likely CT. No chest pain or sob. No constipation, diarrhea or dark or bloody stool. No trauma or fall. Plan: -- Labs -- Pepcid -- CT Abd/Pelvis IV Contrast -- UA -- Reassess and disposition Prior Visits: Notes and results from previous visits were reviewed. Progress Notes: EKG shows NSR at 64 BPM, No STEMI. Interpreted by me. 11/04/18 1640 Per RN Pt eloped prior to imaging / labs - Scribe Statement The provider has reviewed the documentation as recorded by the Jan Yao All medical record entries made by the Marcusibe were at my direction and personally dictated by me. I have reviewed the chart and agree that the record accurately reflects my personal performance of the history, physical exam, medical decision making, and the department course for this patient. I have also personally directed, reviewed, and agree with the discharge instructions and disposition. Disposition/Present on Arrival - Present on Arrival Any Indicators Present on Arrival: No History of DVT/PE: No History of Uncontrolled Diabetes: No Urinary Catheter: No History Surgical Site Infection Following: None - Disposition Have Diagnosis and Disposition been Completed?: Yes Diagnosis: Abdominal pain Disposition: LEFT W/O TREATMENT - ER ONLY Disposition Time: 16:30 Condition: STABLE Referrals: Taye Mckinney MD [Primary Care Provider] - Follow up with primary Forms: [employer] (Macedonian)
[2018-11-04] MEDS ORDERED: Sodium Chloride 0.9% 1,000 ML IV SCH (16:00)
--- NOTE | 2018-11-04 19:08 | CARD ---
APPROVED REPORT Date of service: 11/04/2018 EKG Measurement Heart [id number] <Conclusion> Poor data quality, interpretation may be adversely affected Normal sinus rhythm Normal ECG
== END 2018-11-04 16:30 | disposition left against medical advice (07) ==
LOC: ED 15:10
DX: R10.9 Unspecified abdominal pain (principal); E11.9 Type 2 diabetes mellitus without complications; I10 Essential (primary) hypertension; J44.9 Chronic obstructive pulmonary disease, unspecified; E03.9 Hypothyroidism, unspecified

== ENCOUNTER 2018-11-13 20:40 | Emergency (ER) | payer MEDICAID, OTHER ==
[2018-11-13 20:55] VITALS: RESP 18; O2SAT 98; BMI 24.3
[2018-11-13] MEDS ORDERED: Sodium Chloride 0.9% 1,000 ML IV STA (21:10)
--- NOTE | 2018-11-13 21:13 | ED PDOC ---
Arrival/HPI - General Chief Complaint: High Blood Sugar Time Seen by Provider: 11/13/18 21:10 Historian: Patient - History of Present Illness Narrative History of Present Illness (Text): 11/13/18 21:11 63 y/o female, pmh including htn/dm/cva/hypothryoidism, nkda, biba for elevated glucose over 600 at home. Pt. has been eating at home this evening, curiously checking the glucose while eating and noted to have glucose 600s, concerned and called the ambulance. Pt. is here at the ER stated that she feels nauseous after over eating, no abdominal pain, no nausea/vomiting, no rash, no dizziness, no other medical or psychological complaints. Past Medical History - Provider Review Nursing Documentation Reviewed: Yes - Past History Past History: Non-Contributing - Infectious Disease Hx of Infectious Diseases: None - Tetanus Immunization Tetanus Immunization: Unknown - Reproductive Menopause: Yes - Past Medical History Past Medical History: Non-Contributing - Cardiac Hx Cardiac Disorders: Yes Hx Hypertension: Yes - Pulmonary Hx Respiratory Disorders: Yes Hx Asthma: Yes Hx Emphysema: Yes - Neurological Hx Neurological Disorder: Yes Hx Dementia: Yes Hx Transient Ischemic Attacks (TIA): Yes - HEENT Hx HEENT Disorder: No - Renal Hx Renal Disorder: Yes Hx Kidney Stones: Yes (right) - Endocrine/Metabolic Hx Endocrine Disorders: Yes Hx Diabetes Mellitus Type 2: Yes Hx Hypothyroidism: Yes - Hematological/Oncological Hx Blood Disorders: No - Integumentary Hx Dermatological Disorder: No - Musculoskeletal/Rheumatological Hx Musculoskeletal Disorders: Yes Hx Arthritis: Yes Hx Osteoporosis: Yes - Gastrointestinal Hx Gastrointestinal Disorders: Yes Hx Gastritis: Yes - Genitourinary/Gynecological Hx Genitourinary Disorders: No - Psychiatric Hx Psychophysiologic Disorder: Yes Hx Anxiety: Yes Hx Bipolar Disorder: No Hx Depression: Yes Hx Post Traumatic Stress Disorder: No Hx Schizophrenia: No Hx Substance Use: No - Surgical History Hx Breast Biopsy: Yes Hx Cardiac Catheterization: Yes Hx Orthopedic Surgery: Yes (LUMBAR SPINAL) - Anesthesia Hx Anesthesia: Yes Hx Anesthesia Reactions: No Hx Malignant Hyperthermia: No - Suicidal Assessment Feels Threatened In Home Enviroment: No Family/Social History - Physician Review Nursing Documentation Reviewed: Yes Family/Social History: Unknown Family HX Smoking Status: Never Smoked Hx Alcohol Use: No Hx Substance Use: No Hx Substance Use Treatment: No Allergies/Home Meds Allergies/Adverse Reactions: Allergies No Known Allergies Allergy (Verified 11/07/18 15:21) Home Medications: Home Meds Medication Instructions Recorded Confirmed Levothyroxine [Synthroid] 75 mcg PO DAILY 03/20/17 11/13/18 Atorvastatin [Lipitor] 40 mg PO HS 07/26/17 11/13/18 metFORMIN [glucOPHAGE] 500 mg PO DAILY 11/13/18 11/13/18 Review of Systems - Review of Systems Constitutional: absent: Fatigue, Fevers Eyes: absent: Vision Changes ENT: absent: Hearing Changes Respiratory: absent: SOB, Cough Cardiovascular: absent: Chest Pain Gastrointestinal: Nausea. absent: Abdominal Pain, Diarrhea, Vomiting Skin: absent: Rash, Pruritis Neurological: absent: Headache, Dizziness Psychiatric: absent: Anxiety, Depression, Suicidal Ideation Physical Exam Vital Signs Reviewed: Yes Vital Signs Temp Pulse Resp BP Pulse Ox 11/13/18 20:54 97.6 F 72 18 129/69 98 Temperature: Afebrile Blood Pressure: Normal Pulse: Regular Respiratory Rate: Normal Appearance: Positive for: Well-Appearing, Non-Toxic, Comfortable Pain Distress: None Mental Status: Positive for: Alert and Oriented X 3 Finger Stick Blood Glucose: 271 - Systems Exam Head: Present: Atraumatic, Normocephalic Pupils: Present: PERRL Extroacular Muscles: Present: EOMI Conjunctiva: Present: Normal Mouth: Present: Moist Mucous Membranes Neck: Present: Normal Range of Motion Respiratory/Chest: Present: Clear to Auscultation, Good Air Exchange. No: Respiratory Distress, Accessory Muscle Use Cardiovascular: Present: Regular Rate and Rhythm, Normal S1, S2. No: Murmurs Abdomen: Present: Normal Bowel Sounds. No: Tenderness, Distention, Peritoneal Signs, Rebound, Guarding, McBurney's Point Tender, Rovsing's Sign Present, Scars Back: Present: Normal Inspection. No: CVA Tenderness, Midline Tenderness, Paraspinal Tenderness, Pain with Leg Raise, Decubitus Ulcer Upper Extremity: Present: Normal Inspection. No: Cyanosis, Edema Lower Extremity: Present: Normal Inspection, NORMAL PULSES, Normal ROM, Neurovascularly Intact, Capillary Refill < 2 s. No: Edema, Tenderness, Swelling, Deformity Neurological: Present: GCS=15, CN II-XII Intact, Speech Normal, Motor Func Grossly Intact, Normal Cerebellar Funct, Gait Normal, Memory Normal Skin: Present: Warm, Dry, Normal Color. No: Rashes Psychiatric: Present: Alert, Oriented x 3, Normal Insight, Normal Concentration Medical Decision Making ED Course and Treatment: 11/13/18 21:13 -Labs -VBG -IVF/pepcid/reglan -Observe and reassess 11/13/18 22:08 -VBG Ph 7.46, no signs of DKA -Labs are non significant with glucose 227 -UA show mild UTI -Pt. feels well, eating and drinking well, no abdominal pain, no nausea/vomiting. -Discharge home with education on follow up with your own pmd and piercer operator within 2 days, return to the ER for any new or worsening signs or symptoms. - Medication Orders Current Medication Orders: Famotidine (Pepcid) 20 mg IVP STAT STA Stop: 11/13/18 21:11 - PA / MAXILLOFACIAL SURGEON / Resident Statement / has reviewed & agrees with the documentation as recorded. Disposition/Present on Arrival - Present on Arrival Any Indicators Present on Arrival: No History of DVT/PE: No History of Uncontrolled Diabetes: No Urinary Catheter: No History of Decub. Ulcer: No History Surgical Site Infection Following: None - Disposition Have Diagnosis and Disposition been Completed?: Yes Diagnosis: Hyperglycemia Disposition: HOME/ ROUTINE Disposition Time: 22:10 Patient Plan: Discharge Patient Problems: Current Active Problems Problem Status Onset Hyperglycemia Acute Condition: GOOD Additional Instructions: -Discharge home with education on follow up with your own pmd and piercer operator within 2 days, return to the ER for any new or worsening signs or symptoms. Referrals: Mary Ramirez MD [Medical Doctor] - Follow up with primary [facility] at [facility] [place] [Outside] - Follow up with primary Forms: [employer] (Palauan), WORK NOTE
[2018-11-13 21:41] LABS: BASO # 0.04 K/mm3 (0.0-2.0); BASO % 0.5 % (0.0-3.0); EOS # 0.7 (0.0-0.7); EOS % 8.6 % (1.5-5.0); HEMOGLOBIN 11.7 g/dL (12.0-16.0); LYMPH # 2.7 (1.2-3.4); LYMPH % 34.1 % (22.0-35.0); MEAN CELL VOLUME 87.4 fl (80.0-105.0); MEAN CORPUSCULAR HGB CONC 33.1 g/dl (31.0-37.0); MEAN PLATELET VOLUME 10.8 fl (7.0-11.0); MONO # 0.4 (0.1-0.6); MONO % 5.2 % (1.0-6.0); RBC 4.04 10^6/uL (3.5-6.1); RED CELL DISTRIBUTION WIDTH 13.3 % (11.5-14.5)
[2018-11-13 21:42] LABS: URINE BILIRUBIN NEGATIVE (NEGATIVE); URINE BLOOD NEGATIVE (NEGATIVE); URINE GLUCOSE (UA) NEGATIVE (NEGATIVE); URINE LEUKOCYTE ESTERASE TRACE Leu/uL (NEGATIVE); URINE PROTEIN NEGATIVE mg/dL (<30 mg/dL); URINE UROBILINOGEN 0.2 E.U./dL (<1 E.U./dL)
[2018-11-13 21:44] LABS: URINE APPEARANCE CLEAR (CLEAR); URINE COLOR YELLOW (YELLOW)
[2018-11-13 21:48] LABS: VENOUS BLOOD GAS PO2 161 mm/Hg (30-55); VENOUS BLOOD PH 7.46 (7.32-7.43)
[2018-11-13 21:54] LABS: ALB/GLOB RATIO 1.4 (1.1-1.8); ALBUMIN 4.1 g/dL (3.0-4.8); ALT/SGPT 14 U/L (7-56); AST/SGOT 30 U/L (14-36); BLOOD UREA NITROGEN 23 mg/dL (7-21); CALCIUM 9.5 mg/dL (8.4-10.5); GFR NON-AFRICAN AMERICAN > 60; LIPASE 139 U/L (23-300)
[2018-11-13 21:57] LABS: URINE EPITHELIAL CELLS 0 - 2 /hpf (0-5); URINE WBC 0 - 2 /hpf (0-6)
[2018-11-13 22:38] VITALS: BP 127/75; PULSE 70; TEMP 97.7
== END 2018-11-13 22:15 | disposition home or self-care (01) ==
LOC: ED 20:40
DX: E11.65 Type 2 diabetes mellitus with hyperglycemia (principal); E03.9 Hypothyroidism, unspecified; I10 Essential (primary) hypertension; M81.0 Age-related osteoporosis without current pathological fracture; Z86.73 Personal history of transient ischemic attack (TIA), and cerebral infarction without residual deficits

== ENCOUNTER 2018-11-30 07:51 | Outpatient (CLI) | payer MEDICAID | END 2018-11-30 07:52 | disposition home or self-care (01) | LOC: RAD 07:51 ==

== ENCOUNTER 2018-12-03 14:06 | Emergency (ER) | payer MEDICAID ==
[2018-12-03 14:06] VITALS: BMI 24.3
--- NOTE | 2018-12-03 14:14 | ED PDOC ---
Arrival/HPI - General Historian: Patient - History of Present Illness Narrative History of Present Illness (Text): 12/03/18 14:15 Patient is a 63 yo female with HTN, T2DM, h/o TIA, anemia, asthma/COPD, chronic gastritis, and hypothyroidism who presents with chest pain and nausea. Daughter is at bedside. Patient states that she started having epigastric and midsternal chest pain yesterday. It has been constant. She also complains of nausea and diffuse weakness. She at a yam and an egg today. She denies vomiting. She says she took her BP at home and it was "low," but she cannot say the actual value. She also complains of abdominal pain and cannot remember her last BM but thinks it was soft. SHe recently had an EGD but did not take the medication she was prescribed for gastritis and hiatal hernia. She said she was recently diagnosed with a UTI but did not take the antibiotic prescribed. She admits to increase urinary frequency. She denies dysuria. Patient admits to noncompliance with all her medications. Of note, patient has been seen 3 times in the ED during the last month for similar complaints. Patient AMA'd and eloped during previous ED visits. 12/03/18 14:42 Patient had an Abd US 3 days ago that was unremarkable. AXR on 11/07/18 unremarkable. Time/Duration: < week Symptom Onset: Gradual Symptom Course: Unchanged <Yessi Fried - Last Filed: 12/03/18 15:59> <Alexander Tovar - Last Filed: 12/03/18 19:29> - General Chief Complaint: Chest Pain Time Seen by Provider: 12/03/18 14:14 Past Medical History - Provider Review Nursing Documentation Reviewed: Yes - Past History Past History: Non-Contributing - Infectious Disease Hx of Infectious Diseases: None - Tetanus Immunization Tetanus Immunization: Unknown - Past Medical History Past Medical History: Non-Contributing - Cardiac Hx Cardiac Disorders: Yes Hx Hypertension: Yes - Pulmonary Hx Respiratory Disorders: Yes Hx Asthma: Yes Hx Emphysema: Yes - Neurological Hx Neurological Disorder: Yes Hx Dementia: Yes Hx Transient Ischemic Attacks (TIA): Yes - HEENT Hx HEENT Disorder: No - Renal Hx Renal Disorder: Yes Hx Kidney Stones: Yes (right) - Endocrine/Metabolic Hx Endocrine Disorders: Yes Hx Diabetes Mellitus Type 2: Yes Hx Hypothyroidism: Yes - Hematological/Oncological Hx Blood Disorders: No - Integumentary Hx Dermatological Disorder: No - Musculoskeletal/Rheumatological Hx Musculoskeletal Disorders: Yes Hx Arthritis: Yes Hx Osteoporosis: Yes - Gastrointestinal Hx Gastrointestinal Disorders: Yes Hx Gastritis: Yes - Genitourinary/Gynecological Hx Genitourinary Disorders: No - Psychiatric Hx Psychophysiologic Disorder: Yes Hx Anxiety: Yes Hx Bipolar Disorder: No Hx Depression: Yes Hx Post Traumatic Stress Disorder: No Hx Schizophrenia: No Hx Substance Use: No - Surgical History Hx Breast Biopsy: Yes Hx Cardiac Catheterization: Yes Hx Orthopedic Surgery: Yes (LUMBAR SPINAL) - Anesthesia Hx Anesthesia: Yes Hx Anesthesia Reactions: No Hx Malignant Hyperthermia: No - Suicidal Assessment Feels Threatened In Home Enviroment: No <Yessi Fried - Last Filed: 12/03/18 15:59> Family/Social History - Physician Review Nursing Documentation Reviewed: Yes Family/Social History: Unknown Family HX Smoking Status: Former Smoker (quit 9 years ago) Hx Alcohol Use: No Hx Substance Use: No Hx Substance Use Treatment: No <Yessi Fried - Last Filed: 12/03/18 15:59> Allergies/Home Meds <Yessi Fried - Last Filed: 12/03/18 15:59> <Alexander Tovar - Last Filed: 12/03/18 19:29> Allergies/Adverse Reactions: Allergies No Known Allergies Allergy (Verified 11/07/18 15:21) Home Medications: Home Meds Medication Instructions Recorded Confirmed Levothyroxine [Synthroid] 75 mcg PO DAILY 03/20/17 11/13/18 Atorvastatin [Lipitor] 40 mg PO HS 07/26/17 11/13/18 metFORMIN [glucOPHAGE] 500 mg PO DAILY 11/13/18 11/13/18 Review of Systems - Review of Systems Constitutional: Fatigue. absent: Weight Change, Fevers, Night Sweats Eyes: absent: Vision Changes ENT: absent: Hearing Changes Respiratory: absent: SOB, Cough Cardiovascular: Chest Pain, Palpitations. absent: Edema Gastrointestinal: Abdominal Pain, Constipation, Nausea. absent: Diarrhea, Vomiting Genitourinary Female: Frequency. absent: Dysuria, Hematuria Musculoskeletal: Back Pain Skin: absent: Rash, Pruritis, Skin Lesions Neurological: absent: Headache, Dizziness, Focal Weakness Endocrine: absent: Diaphoresis Hemo/Lymphatic: absent: Adenopathy <Nicotra,Yessi - Last Filed: 12/03/18 15:59> Physical Exam Vital Signs Reviewed: Yes Temperature: Afebrile Blood Pressure: Normal Pulse: Regular Respiratory Rate: Normal Appearance: Positive for: Non-Toxic, Comfortable Pain Distress: None Mental Status: Positive for: Alert and Oriented X 3 - Systems Exam Head: Present: Atraumatic, Normocephalic Pupils: Present: PERRL Extroacular Muscles: Present: EOMI Conjunctiva: Present: Normal Mouth: Present: Moist Mucous Membranes Neck: Present: Normal Range of Motion. No: Lymphadenopathy Respiratory/Chest: Present: Clear to Auscultation, Good Air Exchange Cardiovascular: Present: Regular Rate and Rhythm, Normal S1, S2 Abdomen: Present: Tenderness (diffuse), Normal Bowel Sounds. No: Distention, Peritoneal Signs, Rebound Back: Present: Normal Inspection Lower Extremity: No: Edema, CALF TENDERNESS Neurological: Present: GCS=15, CN II-XII Intact, Speech Normal Skin: Present: Warm, Dry, Normal Color Lymphatic: No: Cervical Adenopathy Psychiatric: Present: Alert, Oriented x 3, Normal Insight, Normal Concentration, Normal Affect <Yessi Fried - Last Filed: 12/03/18 15:59> Vital Signs Temp Pulse Resp BP Pulse Ox 12/03/18 15:30 66 18 114/65 95 12/03/18 14:13 98.7 F 66 18 123/57 L 99 <Alexander Tovar - Last Filed: 12/03/18 19:29> Medical Decision Making ED Course and Treatment: 12/03/18 14:50 Protonix, Aluminum hydroxide, 12/03/18 15:50 Patient's chest pain symptoms feel improved after GI medications. Emphasized importance of taking medications as prescribed by her PMD and GI doctor. Re-evaluation Time: 15:50 Reassessment Condition: Improved - Lab Interpretations I have reviewed the lab results: Yes Interpretation: No clinic. lab abnormalty - RAD Interpretation Radiology Orders: CXR- unremakable - EKG Interpretation EKG Interpretation (Text): 12/03/18 14:17 NSR similar to EKG 11/04/18 Interpreted by ED Physician: Yes Type: 12 lead EKG Comparison: Similar to previous EKG <Yessi Fried - Last Filed: 12/03/18 15:59> ED Course and Treatment: 12/03/18 19:28 Patient Seen with Resident: In agreement with resident note which contains more details about the patient. Patient seen and evaluated with resident. Came up with plan and treatment together. - Lab Interpretations Lab Results: Troponin I < 0.01 ng/mL 12/03/18 15:10 Total Bilirubin 0.3 mg/dL (0.2-1.3) 12/03/18 15:10 AST 44 U/L (14-36) H D 12/03/18 15:10 ALT 20 U/L (7-56) 12/03/18 15:10 Alkaline Phosphatase 104 U/L (38-126) 12/03/18 15:10 Total Protein 7.0 g/dL (5.8-8.3) 12/03/18 15:10 Albumin 4.2 g/dL (3.0-4.8) 12/03/18 15:10 Globulin 2.8 gm/dL 12/03/18 15:10 Albumin/Globulin Ratio 1.5 (1.1-1.8) 12/03/18 15:10 Lipase 121 U/L (23-300) 12/03/18 15:10 Urine Color Yellow (YELLOW) 12/03/18 15:06 Urine Appearance Clear (CLEAR) 12/03/18 15:06 Urine pH 6.0 (4.7-8.0) 12/03/18 15:06 Ur Specific Wisner <= 1.005 (1.005-1.035) 12/03/18 15:06 Urine Protein Negative mg/dL (<30 mg/dL) 12/03/18 15:06 Urine Glucose (UA) Negative mg/dL (NEGATIVE) 12/03/18 15:06 Urine Ketones Negative mg/dL (NEGATIVE) 12/03/18 15:06 Urine Blood Negative (NEGATIVE) 12/03/18 15:06 Urine Nitrate Negative (NEGATIVE) 12/03/18 15:06 Urine Bilirubin Negative (NEGATIVE) 12/03/18 15:06 Urine Urobilinogen 0.2 E.U./dL (<1 E.U./dL) 12/03/18 15:06 Ur Leukocyte Esterase Negative Polo/uL (NEGATIVE) 12/03/18 15:06 - RAD Interpretation Radiology Orders: 12/03/18 14:29 CHEST PORTABLE [RAD] Stat - Medication Orders Current Medication Orders: Discontinued Medications Aluminum Hydroxide (Aluminum Hydroxide Gel 320mg /5ml Susp (Bulk)) 30 ml PO STAT STA Stop: 12/03/18 15:11 Last Admin: 12/03/18 15:33 Dose: 30 ml Belladonna/Phenobarbital ( Elixir) 5 ml PO STAT STA Stop: 12/03/18 15:11 Last Admin: 12/03/18 15:33 Dose: 5 ml Pantoprazole Sodium (Protonix Inj) 40 mg IVP STAT STA Stop: 12/03/18 14:30 Last Admin: 12/03/18 15:07 Dose: 40 mg IVP Administration Document 12/03/18 15:07 MA (Rec: 12/03/18 15:07 MA [id number]) Charges for Administration # of IVP Administrations 1 <Alexander Tovar - Last Filed: 12/03/18 19:29> - PA / INDUSTRIAL ENGINEER / Resident Statement SHAHIDA has reviewed & agrees with the documentation as recorded. SHAHIDA has examined the patient and agrees with the treatment plan. <Alexander Tovar - Last Filed: 12/03/18 19:29> Disposition/Present on Arrival - Present on Arrival Any Indicators Present on Arrival: No History of DVT/PE: No History of Uncontrolled Diabetes: No Urinary Catheter: No History Surgical Site Infection Following: None - Disposition Have Diagnosis and Disposition been Completed?: Yes Disposition Time: 15:55 Patient Plan: Discharge <Yessi Fried - Last Filed: 12/03/18 15:59> <Alexander Tovar - Last Filed: 12/03/18 19:29> - Disposition Diagnosis: GERD (gastroesophageal reflux disease), Chronic gastritis Disposition: HOME/ ROUTINE Condition: IMPROVED Discharge Instructions (ExitCare): Gastritis, Acid Reflux (Gastroesophageal Reflux Disease), Adult (DC) Print Language: WOLOF Additional Instructions: Follow-up with GI as instructed. Take all medications as prescribed by GI doctor. Referrals: Manuelito Vu MD [Medical Doctor] - Follow up with primary Forms: [employer] (Gu[place]an)
[2018-12-03 14:18] VITALS: PULSE 66; RESP 18; TEMP 98.7
--- NOTE | 2018-12-03 15:04 | RAD ---
Date of service: 12/03/2018 HISTORY: chest pain COMPARISON: 04/17/2018 TECHNIQUE: 1 view obtained. FINDINGS: LUNGS: No active pulmonary disease. PLEURA: No significant pleural effusion identified, no pneumothorax apparent. CARDIOVASCULAR: No aortic atherosclerotic calcification present. Normal cardiac size. No pulmonary vascular congestion. OSSEOUS STRUCTURES: No significant abnormalities. VISUALIZED UPPER ABDOMEN: Normal. OTHER FINDINGS: None. IMPRESSION: No active disease.
[2018-12-03] MEDS ORDERED: Aluminum Hydrox Gel 320 mg/5 ml Susp(480 ml) PO STA (15:10)
[2018-12-03] MEDS ORDERED: Atrop/Hyosc/Scopal/PB Elixir (120 ml) PO STA (15:10)
[2018-12-03 15:12] LABS: URINE BILIRUBIN NEGATIVE (NEGATIVE); URINE BLOOD NEGATIVE (NEGATIVE); URINE GLUCOSE (UA) NEGATIVE (NEGATIVE); URINE LEUKOCYTE ESTERASE NEGATIVE Leu/uL (NEGATIVE); URINE PROTEIN NEGATIVE mg/dL (<30 mg/dL); URINE UROBILINOGEN 0.2 E.U./dL (<1 E.U./dL)
[2018-12-03 15:14] LABS: URINE APPEARANCE CLEAR (CLEAR); URINE COLOR YELLOW (YELLOW)
[2018-12-03 15:19] LABS: BASO # 0.02 K/mm3 (0.0-2.0); BASO % 0.3 % (0.0-3.0); EOS # 0.7 (0.0-0.7); EOS % 9.6 % (1.5-5.0); HEMOGLOBIN 11.7 g/dL (12.0-16.0); LYMPH # 2.2 (1.2-3.4); LYMPH % 28.3 % (22.0-35.0); MEAN CELL VOLUME 87.8 fl (80.0-105.0); MEAN CORPUSCULAR HEMOGLOBIN 29.2 pg (25.0-35.0); MEAN CORPUSCULAR HGB CONC 33.2 g/dl (31.0-37.0); MEAN PLATELET VOLUME 9.9 fl (7.0-11.0); MONO # 0.3 (0.1-0.6); MONO % 3.7 % (1.0-6.0); RBC 4.01 10^6/uL (3.5-6.1); RED CELL DISTRIBUTION WIDTH 13.5 % (11.5-14.5); WHITE BLOOD COUNT 7.6 10^3/uL (4.5-11.0)
[2018-12-03 15:31] VITALS: BP 114/65; O2SAT 95
[2018-12-03 15:39] LABS: BLOOD UREA NITROGEN 22 mg/dL (7-21); GFR NON-AFRICAN AMERICAN > 60
[2018-12-03 15:40] LABS: ALB/GLOB RATIO 1.5 (1.1-1.8); ALBUMIN 4.2 g/dL (3.0-4.8); ALT/SGPT 20 U/L (7-56); AST/SGOT 44 U/L (14-36); CALCIUM 9.8 mg/dL (8.4-10.5); LIPASE 121 U/L (23-300)
[2018-12-03 15:48] LABS: TROPONIN I < 0.01 ng/mL
--- NOTE | 2018-12-03 18:02 | CARD ---
APPROVED REPORT Date of service: 12/03/2018 EKG Measurement Heart [id number] [id number] <Conclusion> Sinus rhythm with short [place] Otherwise normal ECG
== END 2018-12-03 16:16 | disposition home or self-care (01) ==
LOC: ED 14:06
DX: K29.50 Unspecified chronic gastritis without bleeding (principal); K21.9 Gastro-esophageal reflux disease without esophagitis; I10 Essential (primary) hypertension; E11.9 Type 2 diabetes mellitus without complications; D64.9 Anemia, unspecified; F03.90 Unspecified dementia, unspecified severity, without behavioral disturbance, psychotic disturbance, mood disturbance, and anxiety; E03.9 Hypothyroidism, unspecified; Z86.73 Personal history of transient ischemic attack (TIA), and cerebral infarction without residual deficits; Z87.891 Personal history of nicotine dependence
CPT/HCPCS: 71045; 80053; 81003; 82554; 83690; 83735; 84100; 84484; 85025; 87086; 93005; 96374; 99283; C9113